=== PATIENT | female | born 1960 | race Caucasian/White ===

== ENCOUNTER 2022-03-03 11:38 | Outpatient (REF) | payer OTHER, SELFPAY ==
--- NOTE | ~2022-03-03 | XR_ITS ---
EXAMINATION: XR HAND, LEFT CLINICAL INFORMATION: Primary osteoarthritis. COMPARISON: None TECHNIQUE: PA, lateral, and oblique views of the left hand. FINDINGS: Bony alignment and mineralization are normal. There is a neutral ulnar variance. The proximal and distal carpal rows are intact. There is mild osteoarthritic change of the first carpometacarpal joint. There is a small well-corticated, ovoid probable loose body related to the first carpometacarpal joint. There is mild osteoarthritic change of the third distal interphalangeal joint. No focal bone erosion is seen. No focal soft tissue swelling, gas or foreign body is seen. XR/XR hand LT min 3V IMPRESSION: 1. There is mild osteoarthritic change of the left first carpometacarpal joint, and a small adjacent loose body is seen. 2. There is mild osteoarthritic change of the third distal interphalangeal joint. 3. No fracture or dislocation is seen. 4. There is no abnormal bone erosion.
== END 2022-03-03 11:39 | disposition home or self-care (01) ==
LOC: HO.XRAY 11:38
PROVIDERS: PCP Internal Medicine; Visit Provider Internal Medicine Rheumatology
DX: M19.042 Primary osteoarthritis, left hand (principal)
CPT/HCPCS: 73130

== ENCOUNTER 2022-11-06 07:19 | Outpatient (REF) | payer OTHER, SELFPAY ==
--- NOTE | ~2022-11-06 | XR_ITS ---
EXAMINATION: XR HIP, LEFT CLINICAL INFORMATION: Left hip pain. COMPARISON: None available. TECHNIQUE: Single view pelvis and 2 views of the left hip. FINDINGS: Marked degenerative changes are present in the left hip with circumferential joint space narrowing, sclerosis and osteophytes. No significant changes are seen in the right hip joint. The visualized pelvis is unremarkable. No fractures or bony destructive lesions. XR/XR hip LT w PEL1V IMPRESSION: Marked degenerative changes in the left hip.
== END 2022-11-06 07:20 | disposition home or self-care (01) ==
LOC: HO.HOSX 07:19
PROVIDERS: Visit Provider Orthopaedic Surgery
DX: M16.12 Unilateral primary osteoarthritis, left hip (principal)
CPT/HCPCS: 73502

== ENCOUNTER 2022-11-06 10:46 | Outpatient (AMB) | payer OTHER, SELFPAY ==
[2022-11-06 11:02] VITALS: BMI 23.8
--- NOTE | 2022-11-06 11:02 | A.OFFVIS_ITS ---
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 Parks. The patient presents with complaints of progressively worsening left hip pain. She describes her pain as sharp and severe in nature, 10/10. Her pain has gotten worse over the last few years in spite of continued non operative treatments. Most of her pain is located within her left groin. She has done physical therapy for 12 weeks over the last 6 months which aggravated her pain. She has also tried Tylenol and anti-inflammatory medicines which gave her minimal relief. The patient has difficulty walking even short distances because of her pain. At this point her left hip pain is interfering with her activities of daily living and ability to sleep well through the night. Allergies No Known Allergies Allergy (Verified 11/06/22 11:15) Medication List - Last Reconciled 11/06/22 by Tramaine Parks MD aspirin (Adult Low Dose Aspirin) 81 mg PO DAILY atorvastatin 10 mg PO DAILY diltiazem HCl (Cardizem CD) 180 mg PO DAILY empagliflozin (Jardiance) 25 mg PO DAILY lisinopril-hydrochlorothiazide 20-12.5 mg 1 tab PO DAILY meloxicam 7.5 mg PO DAILY metformin 500 mg PO .in pm and 2 in am metoprolol succinate ER 50 mg PO DAILY plecanatide (Trulance) 3 mg PO DAILY potassium chloride ER 10 mEq PO DAILY trazodone 50 mg PO BEDTIME venlafaxine 37.5 mg PO DAILY [facility] Medical History (Updated 11/06/22 @ 07:20 by Tramaine Parks MD) Allergic rhinitis Biliary dyskinesia Cataracts, bilateral Depression Diabetes Diverticulitis Dyslipidemia Hypertension Hypokalemia Insomnia Internal hemorrhoids Lipoma of colon Migraines Ocular hypertension Rosacea Surgical History (Updated 02/26/22 @ 09:18 by Etienne Schrader LPN) H/O foot surgery Hx laparoscopic cholecystectomy Family History (Updated 02/26/22 @ 09:21 by Etienne Schrader LPN) Mother COPD (chronic obstructive pulmonary disease) Diabetes Father CAD (coronary artery disease) Paternal Grandmother CAD (coronary artery disease) Social History (Updated 03/03/22 @ 10:38 by Etienne Schrader LPN) Household Members Other:: lives alone Housing: Condominium Alcohol intake: current Alcohol intake frequency: a few times a week Alcohol type: wine Patient Tobacco Use Status: Former Tobacco user Years Smoked: Quit 21 years ago e-Cigarette/Vaping Use: Never Used service: No Current occupational status: retired 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 [employer] Physical Exam Vital Signs: BMI result Body Mass Index 23.8 Const Other: Well-nourished well-developed very friendly female awake alert and oriented x3 in no acute distress Extrem Other: Bilateral lower extremity examination shows good capillary refill, no skin lesions noted, normal sensation light touch Left hip examination shows decreased range of motion when compared to her right hip, pain with range of motion, no tenderness over her bursa Results Reviewed Results Reviewed: X-rays of the patient's left hip taken today show severe joint space narrowing with grade 4 [id number] arthritis, subchondral sclerosis, osteophyte formation, no acute bony abnormalities Assessment & Plan Assessment & Plan (1) Osteoarthritis of left hip: Code(s): M16.12 - Unilateral primary osteoarthritis, left hip Plan: Ms. Yin presents with progressively worsening left hip pain due to end- stage degenerative joint disease. I had a lengthy discussion with the patient regarding the treatment options. At this point she has failed continued non operative treatments. The risks and benefits of left total hip replacement were discussed at length with the patient. We had a discussion regarding implant in bearing options. We had a detailed discussion of the advantages and limitations of the specific implant designs, materials and bearing surfaces. All questions were answered to the patient's satisfaction. The patient wishes to proceed with surgery. Because the patient's symptoms are severe and intractable we will schedule surgery for as soon as possible. Coronavirus precautions will be taken. The patient will contact my office to pick a surgery date. I will see her back 1 week prior to her surgery to answer any final questions that she might have. She will contact me prior to that time should any questions or concerns arise. Feel free to call me at any time should questions regarding her orthopedic management arise. Thank you very much for asking me to see this very friendly patient. I spent 22 minutes in reviewing the patient's records and imaging studies, seeing the patient and documenting in the medical record. Orders: Orders XR hip LT w PEL1V Today M25.552 - Pain in left hip Coding Level of Care Code Est Pt Level 2 (01639) Diagnoses Osteoarthritis of left hip M16.12
== END 2022-11-06 12:14 | disposition home or self-care (01) ==
PROVIDERS: PCP Internal Medicine; Visit Provider Orthopaedic Surgery
DX: M16.12 Unilateral primary osteoarthritis, left hip (principal)
CPT/HCPCS: 99212

== ENCOUNTER → 2023-04-07 09:14 | Outpatient (BNVA) | payer OTHER, SELFPAY | PROVIDERS: PCP Internal Medicine; Visit Provider Orthopaedic Surgery ==

== ENCOUNTER 2023-05-07 09:26 | Outpatient (AMB) | payer OTHER, SELFPAY ==
[2023-05-07 09:27] VITALS: BMI 23.8
--- NOTE | 2023-05-07 09:27 | A.OFFVIS_ITS ---
Intake Vital Signs 05/07/23 09:27 Height 5 ft Weight 122 lb BMI 23.8 Intake Visit Reasons: Preop LT AGUSTÍN 05/11/23 Intake Note: Belkis is a 63 year old female who presents for a pre op appointment for left total hip replacement surgery. The patient's left hip pain has been getting progressively worse in spite of continued non operative treatments. The patient's left hip pain is now interfering with her ability to walk long distances and perform her activities of daily living. Allergies No Known Allergies Allergy (Verified 05/07/23 09:31) Medication List - Last Reconciled 05/07/23 by Tramaine Parks MD atorvastatin 10 mg PO DAILY diltiazem HCl (Cardizem CD) 180 mg PO DAILY lisinopril-hydrochlorothiazide 20-12.5 mg 1 tab PO DAILY metformin 1,000 mg PO BID metoprolol succinate ER 50 mg PO DAILY potassium chloride ER 10 mEq PO DAILY trazodone 100 mg PO BEDTIME venlafaxine 37.5 mg PO DAILY walker Folding front wheeled walker [facility] Medical History Back pain Arthritis Aortic stenosis Murmur IBS (irritable bowel syndrome) Rosacea Internal hemorrhoids Migraines Allergic rhinitis Insomnia Lipoma of colon Hypertension Diabetes Depression Biliary dyskinesia Diverticulitis Cataracts, bilateral Ocular hypertension Hypokalemia Dyslipidemia Surgical History History of bunionectomy H/O colonoscopy Hx of tonsillectomy H/O foot surgery Hx laparoscopic cholecystectomy Family History Mother COPD (chronic obstructive pulmonary disease) Diabetes Father CAD (coronary artery disease) Paternal Grandmother CAD (coronary artery disease) Social History Household Members Other:: lives alone Housing: Condominium Are you a primary manager progressive care to a significant other at home: No Do you presently have visiting nurse or other home services: Yes (nursing) Alcohol intake: current Alcohol intake frequency: 0-2 drinks per day Alcohol type: wine Patient Tobacco Use Status: Former Tobacco user Years Smoked: Quit 21 years ago e-Cigarette/Vaping Use: Never Used service: No Current occupational status: retired 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 Yin presents with progressively worsening left hip pain due to end- stage degenerative joint disease. I had a lengthy discussion with the patient regarding the treatment options. At this point she has failed continued non operative treatments. The risks and benefits of left total hip replacement surgery were discussed at length with the patient. The patient wishes to proceed with surgery. policy services representative will be consulted following her surgery for home physical therapy and nursing. Patient will follow-up as a. Feel free to call me at any time should questions regarding her orthopedic arise. I spent 20 minutes in reviewing the patient's records and imaging studies, seeing the patient and documenting in the medical record. Coding Level of Care Code Est Pt Level 2 (89052) Diagnoses Osteoarthritis of left hip M16.12
== END 2023-05-07 09:54 | disposition home or self-care (01) ==
PROVIDERS: PCP Internal Medicine; Visit Provider Orthopaedic Surgery
DX: M16.12 Unilateral primary osteoarthritis, left hip (principal)
CPT/HCPCS: 99024

== ENCOUNTER → 2023-05-07 09:26 | Outpatient (BNVA) | payer OTHER, SELFPAY | PROVIDERS: PCP Internal Medicine; Visit Provider Orthopaedic Surgery ==

== ENCOUNTER 2023-05-11 06:06 | Inpatient (IN) | payer OTHER, SELFPAY ==
[2023-04-29 12:18] VITALS: BP 104/61; PULSE 65; RESP 16; O2SAT 98; BMI 25.8
--- NOTE | 2023-04-29 12:41 | P.CONAN_ITS ---
Documented by User: Myrna Pritchard NP 05/07/23 15:14 HPI - Anesthesia Eval Consult details Narrative: 63yo F for Left Hip Total Replacement, 05/11/23 PCP cleared Cardiac cleared No recent illness No CP/SOB with minimal activity. Only limited to hip pain DM. FBS ~ 115. Sensor in situ Aortic stenosis. Asymptomatic. No valve abnormality on last echo. Survellience only per cardiology 1 small glass wine daily PMFSH Active Problems Active Problems: All Active Problems (Updated 04/29/23 @ 12:07 by Lavern Torres RN) Left hip pain (Acute) Osteoarthritis of left hip (Acute) Hand pain, left (Acute) Pain of multiple sites (Acute) Osteoarthritis, hand (Acute) Depression (Acute) Diabetes (Acute) Hypertension (Acute) Past Medical History Medical History Back pain Arthritis Aortic stenosis Murmur IBS (irritable bowel syndrome) Rosacea Internal hemorrhoids Migraines Allergic rhinitis Insomnia Lipoma of colon Hypertension Diabetes Depression Biliary dyskinesia Diverticulitis Cataracts, bilateral Ocular hypertension Hypokalemia Dyslipidemia Family History Family History Mother COPD (chronic obstructive pulmonary disease) Diabetes Father CAD (coronary artery disease) Paternal Grandmother CAD (coronary artery disease) Family history of problems with anesthesia: No Surgical History Surgical History History of bunionectomy H/O colonoscopy Hx of tonsillectomy H/O foot surgery Hx laparoscopic cholecystectomy History of Problems with Anesthesia: Yes (PONV) Social History Social History Household Members Other:: lives alone Housing: Condominium Are you a primary reservoir caretaker to a significant other at home: No Do you presently have visiting nurse or other home services: Yes (nursing) Alcohol intake: current Alcohol intake frequency: 0-2 drinks per day Alcohol type: wine Patient Tobacco Use Status: Former Tobacco user Years Smoked: Quit 21 years ago e-Cigarette/Vaping Use: Never Used Use of substances other than those prescribed or required for medical reasons: No Have you been hit, kicked, punched, or otherwise hurt by someone within the past year? 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 [employer] Allergies Allergy/AdvReac Type Severity Reaction Status Date / Time No Known Allergies Allergy Verified 05/11/23 06:21 Home Medications Medication Instructions Recorded Confirmed Last Taken Type atorvastatin 10 mg tablet 10 mg PO DAILY 03/03/22 05/07/23 05/11/23 History diltiazem HCl 180 mg 180 mg PO DAILY 03/03/22 05/07/23 05/11/23 History capsule,extended release 24 hr (Cardizem CD) lisinopril 20 1 tab PO DAILY 03/03/22 05/07/23 Unknown History mg-hydrochlorothiazide 12.5 mg tablet metformin 500 mg tablet 1,000 mg PO BID 03/03/22 05/07/23 Unknown History metoprolol succinate 50 mg 50 mg PO DAILY 03/03/22 05/07/23 05/11/23 History tablet,extended release 24 hr potassium chloride 10 mEq 10 meq PO DAILY 03/03/22 05/07/23 Unknown History capsule,extended release trazodone 50 mg tablet 100 mg PO BEDTIME 03/03/22 05/07/23 Unknown History venlafaxine 37.5 mg tablet 37.5 mg PO DAILY 03/03/22 05/07/23 05/11/23 History Exam Height,Weight and Vital Signs: Height 5 ft Weight 59.874 kg Last Vital Signs Pulse 65 04/29/23 12:18 Resp 16 04/29/23 12:18 BP 104/61 04/29/23 12:18 Pulse Ox 98 04/29/23 12:18 O2 Del Method Room Air 04/29/23 12:18 Pertinent Lab Results Pertinent Lab Results: CBC and BMP from outside facility 02/2023 WNL Narrative Narrative: Per 03/2023 cardiac note: 11/2022 stress test d/t chest pain with Nuc imaging did not reveal any evidence of ischemia or infarct 05/2022 echo revealed mildly dilated LA, nml LV chamber size. No RWMA. LVEF 60%. Mild DD. Mild to moderate mitral insufficiency. EKG 03/2023 SR @ 57 Short DC interval Borderline T abnormalities, anterior leads Unchanged from 2021 Airway Mallampati Class: II TM Dist: >3cm Neck ROM: Full Loose/Missing/Broken Teeth: No (crowned molars stable) Heart: RRR Lungs: CTAB Assessment and Plan Assessment Anesthesia Assessment: Anesthesia Plan Discussed and PAT Visit Final Anesthetic Review Family History of Problems with Anesthesia: No History of Problems with Anesthesia: Yes (PONV) Documented by User: Kathleen Sanchez MD 05/11/23 08:36 PMFSH Active Problems Active Problems: All Active Problems (Updated 05/11/23 @ 07:18 by Kathleen Sanchez MD) Left hip pain (Acute) Osteoarthritis of left hip (Acute) Hand pain, left (Acute) Pain of multiple sites (Acute) Osteoarthritis, hand (Acute) Depression (Acute) Diabetes (Acute) Hypertension (Acute) Mild Aortic stenosis Denies [facility]RI[facility]EL Past Medical History Medical History Back pain Arthritis Aortic stenosis Murmur IBS (irritable bowel syndrome) Rosacea Internal hemorrhoids Migraines Allergic rhinitis Insomnia Lipoma of colon Hypertension Diabetes Depression Biliary dyskinesia Diverticulitis Cataracts, bilateral Ocular hypertension Hypokalemia Dyslipidemia Family History Family History Mother COPD (chronic obstructive pulmonary disease) Diabetes Father CAD (coronary artery disease) Paternal Grandmother CAD (coronary artery disease) Surgical History Surgical History History of bunionectomy H/O colonoscopy Hx of tonsillectomy H/O foot surgery Hx laparoscopic cholecystectomy Social History Social History Household Members Other:: lives alone Housing: Condominium Are you a primary reservoir caretaker to a significant other at home: No Do you presently have visiting nurse or other home services: Yes (nursing) Alcohol intake: current Alcohol intake frequency: 0-2 drinks per day Alcohol type: wine Patient Tobacco Use Status: Former Tobacco user Years Smoked: Quit 21 years ago e-Cigarette/Vaping Use: Never Used Use of substances other than those prescribed or required for medical reasons: No Have you been hit, kicked, punched, or otherwise hurt by someone within the past year? If so, by whom?: No Are you DNR?: Yes Advance Directives: No Advance Directives Information Provided: No Advance Directives on File: No Recently lost weight without trying: No Eating poorly because of decreased appetite: No Nutrition Risks: No Nutritional Risk Patient : No : No Poor oral hygiene: No service: No Current occupational status: retired Current occupation: Former worker in [employer] in [employer] Allergies Allergy/AdvReac Type Severity Reaction Status Date / Time No Known Allergies Allergy Verified 05/11/23 06:21 Home Medications Medication Instructions Recorded Confirmed Last Taken Type atorvastatin 10 mg tablet 10 mg PO DAILY 03/03/22 05/07/23 05/11/23 History diltiazem HCl 180 mg 180 mg PO DAILY 03/03/22 05/07/23 05/11/23 History capsule,extended release 24 hr (Cardizem CD) lisinopril 20 1 tab PO DAILY 03/03/22 05/07/23 Unknown History mg-hydrochlorothiazide 12.5 mg tablet metformin 500 mg tablet 1,000 mg PO BID 03/03/22 05/07/23 Unknown History metoprolol succinate 50 mg 50 mg PO DAILY 03/03/22 05/07/23 05/11/23 History tablet,extended release 24 hr potassium chloride 10 mEq 10 meq PO DAILY 03/03/22 05/07/23 Unknown History capsule,extended release trazodone 50 mg tablet 100 mg PO BEDTIME 03/03/22 05/07/23 Unknown History venlafaxine 37.5 mg tablet 37.5 mg PO DAILY 03/03/22 05/07/23 05/11/23 History Exam Height,Weight and Vital Signs: Height 5 ft Weight 59.874 kg Last Vital Signs Pulse 65 04/29/23 12:18 Resp 16 04/29/23 12:18 BP 104/61 04/29/23 12:18 Pulse Ox 98 04/29/23 12:18 O2 Del Method Room Air 04/29/23 12:18 Vital Signs Temp Pulse Resp BP Pulse Ox O2 Del Method 05/11/23 06:28 98.9 F 65 18 136/66 98 Room Air Pertinent Lab Results Pertinent Lab Results: CBC and BMP from outside facility 02/2023 WNL Lab Results 04/29/23 04/29/23 05/11/23 Range/Units 12:50 13:22 06:38 POC Glucose 125 H (60-115) mg/dL Nasal Screen MRSA (PCR) NEGATIVE (Negative) Nasal S. aureus Screen NEGATIVE (Negative) Nasal MRSA/S.aureus Interp SEE NOTE Blood Type B Negative Antibody Screen NEGATIVE Airway Loose/Missing/Broken Teeth: Yes (Crowned molars. Missing tooth bottom left back. Denies broken or loose teeth) Assessment and Plan Assessment Anesthesia Assessment: Chart Reviewed Final Anesthetic Review NPO: Yes ASA Class: II Final Preanesthetic Review: No Changes in Pt Med Stat, Meds/Allgs Chart Reviewed, Consent Obtained/Reviewed and Anes Risks/Benef Reviewed Patient Risk: Intermediate Procedure Risk: Intermediate Assessment/Block/Sedation in SS: Assess/Block/Sedation-SS Anesthetic Plan Anesthetic Plan: GA Disposition: Standard PACU and Inp. Admit - Standard Bed
[2023-05-11] VITALS (18 sets, daily range): BP systolic 86–151; BP diastolic 48–72; PULSE 56–65; RESP 12–20; TEMP 36.2–37.3; O2SAT 96–99; BMI 24.9
--- NOTE | ~2023-05-11 | XR_ITS ---
EXAMINATION: XR PELVIS CLINICAL INFORMATION: Status post left total hip arthroplasty. COMPARISON: Radiograph pelvis and left hip 11/06/2022. TECHNIQUE: AP view of the pelvis. FINDINGS: Prosthetic components of the left total hip arthroplasty are appropriately aligned. No periprosthetic fracture. Gas from recent surgery is present in the surrounding soft tissues. XR/XR pelvis 1-2V IMPRESSION: Status post left total hip arthroplasty. No periprosthetic fracture.
[2023-05-11] MEDS: Lactated Ringers 1,000 ML 100 ML IVCONT ×3 (06:36→23:48)
[2023-05-11 06:54] LABS: Glucose, Whole Blood 125 mg/dL (60-115)
[2023-05-11] MEDS: vancomycin HCL 1,000 MG in 0.9 % Sodium Chloride 250 ML 270 MG IV ×2 (06:56→18:29)
[2023-05-11] MEDS: oxyCODONE HCl ER 10 MG TAB.ER.12H PO ×2 (06:59→20:33)
--- NOTE | 2023-05-11 10:26 | PM.OP ---
Brief Operative Note Date of Service: 05/11/23 Pre-op diagnosis: Left hip degenerative joint disease Post-op diagnosis: same Procedure: Left total hip arthroplasty Implants: Fraser press-fit total hip arthroplasty with an Accolade II femoral stem size 2 with a 127 degree neck-shaft angle, a Trident II Tritanium acetabular component with cluster hole size 44, polyethylene liner size 32B with a 0 degree lip, a Biolox ceramic femoral head size 32 with a-4 mm neck, 1 [email or web address] cable, 2 cancellous bone screws measuring 25 mm in length and 20 mm in length Surgeon: Tramaine Parks MD Anesthesia: GETA Was an Head Girls Golf [employer] used for this Procedure?: No Estimated blood loss (mL): 200 Pathology: other (Left femoral head) Condition: stable Disposition: PACU
--- NOTE | 2023-05-11 10:28 | P.OP_ITS ---
Operative Note Operative Note Date of Service: 05/11/23 Narrative: After the patient was identified as Belkis Yin and his left hip was initialed by myself the patient was brought to the operating room where general anesthesia via endotracheal tube was induced by the anesthesiologist in routine fashion. Because of the patient's diabetes she was given both IV Ancef and IV vancomycin preoperatively for infection prophylaxis. The patient was then gently rolled into the lateral position. An axillary roll was put into place. All bony prominences were well padded. The patient's pelvis was held securely with hip bolsters. The patient's left hip region and lower extremity were pr epped and draped in sterile fashion. A #10 scalpel blade was then used to make a curvilinear incision centered over the greater trochanter. The subcutaneous tissues were dissected using electrocautery down to the fascia eugenie. The fascia eugenie was then split in line with the skin incision using electrocautery. The split in the fascia eugenie was curved posteriorly along its cephalad aspect to help prevent injury to the innervation of the tensor fascia eugenie muscle. The patient's leg was gently externally rotated. A lateral Harrell approach was then taken down to the anterior joint capsule. The anterior half of the vastus lateralis was split 1 cm from its insertion and tagged with #2 Ethibond suture. The anterior 1/3 of the gluteus medius incision was then split using electrocautery and tagged with #2 Ethibond suture. An anterior capsulectomy was then performed using electrocautery. The patient's femoral head was then dislocated anteriorly using a hook and gentle traction. Soft tissues were retracted around the femoral neck. The femoral neck cut was then made using a sagittal saw 1 cm proximal to the lesser trochanter. Our attention was then directed to the acetabulum. The labrum was removed using electrocautery. Soft tissue within the cotyloid notch was removed using electrocautery and a rongeur. The femoral head measured to be a size 40 mm. Thus, reaming was begun with a 40 mm reamer. Reaming was performed at 45 degrees of abduction and 20 degrees of anteversion. Reaming was increased incrementally up to a size 44 reamer. At this point we had reached the medial wall of the acetabulum. The acetabulum was irrigated with copious amounts of normal saline solution via pulse lavage. The final size 44 acetabular component was then impacted into place with 45 degrees of abduction and 20 degrees of anteversion. Two cancellous screws were then placed into the superior position. The anterior screw measured 25 mm in length and the posterior screw measured 20 mm in length. The acetabular component was irrigated with copious amounts of normal saline solution via pulse lavage. The polyethylene liner was then impacted into place with the lip in the posterior- superior position. A small sponge was placed into the acetabular component to protect it during preparation of the proximal femur. Our attention was then directed to the proximal femur. A Dall-Miles cable was placed just distal to the lesser trochanter to help prevent periprosthetic fracture. The patient's leg was then placed into a sterile pouch along the anterior aspect of the surgical suite table. Soft tissues were retracted around the proximal femur. A box cutting osteotome was used to make a groove in the medial aspect of the greater trochanter. Broaching was begun with a size 1 broach. Broaching was increased up to a size 2 broach. The size 2 broach fit well. There was both linear and rotational stability. The broach was removed. The intramedullary canal was irrigated with copious amounts of normal saline solution via pulse lavage. The final implant was impacted into place. There was both rotational and linear stability. The Dall-Miles cable was tightened and cut in routine fashion. A trial size 36 head with a -4 mm neck was put into place. The hip was reduced. Leg lengths were clinically equal. The hip was taken through a full range of motion. There was no instability. The hip was once again dislocated and the patient's leg was placed into the sterile pouch. The trial head was removed. The wound was irrigated with copious amounts of normal saline solution via pulse lavage. The final head was impacted in the place. Leg lengths were clinically equal. Hip was taken through a full range of motion. There was no instability. The patient's leg was then placed onto a well-padded [place]me[place] stand. The wound was once again irrigated. The vastus lateralis and tensor fascia eugenie tendons were repaired with #2 Ethibond [id number] interrupted suture. The wound was once again irrigated. The fascia eugenie was closed with #2 Ethibond [id number] interrupted suture as well as #1 Vicryl [id number] interrupted suture. The wound was once again irrigated. The subcutaneous tissues were closed with 0 Vicryl and 2-0 Vicryl interrupted suture. The skin was closed with skin raven. Dry sterile dressing was placed over the incision. The patient was gently rolled into the supine position. The patient was awoken and extubated in the operating room. The patient was transferred to the recovery room in stable condition.
[2023-05-11] MEDS: fentaNYL citrate/PF 100 MCG/2 ML VIAL 25 MCG IVPUSH ×4 (10:43→11:13)
--- NOTE | 2023-05-11 11:02 | PHA.MEDREC ---
Pharmacy Consult ? Medication Reconciliation Pharmacy has completed the medication reconciliation. reviewed med rec done by nursing.
[2023-05-11] MEDS: Aspirin 325 MG TABLET PO ×2 (12:34→23:47)
[2023-05-11] MEDS: oxyCODONE HCl Immed Release 5 MG TABLET 10 MG PO ×2 (12:45→18:39)
--- NOTE | 2023-05-11 13:04 | HO.PM.IMCN ---
History of Present Illness Data of Consult Service Date: 05/11/23 Requesting physician: Angie Knutson Primary Care Provider: Kee Barker III, MD HPI Reason for consult: medical management 63 year old female with history of non insulin dependent type 2 diabetes, htn, aortic stenosis, mood disorder admitted to orthopedic surgery with consult placed to hospitalist service for medical management. She is currently reporting pain in the left hip, otherwise has no complaints. VSS, though remains on 1 L supplemental O2. No history chronic lung disease. Occ etoh use, cigarette smoking, or illicit drug use. Review of Systems Review of Systems: General: No fevers, malaise, unintentional weight loss HEENT: No blurred vision, diplopia. No sore throat, nasal congestion, rhinorrhea, sinus pain, ear pain Cardiovascular: No chest pain, palpitations, or leg edema Respiratory: No shortness of breath, wheezing, cough GI: No abdominal pain, nausea, vomiting, diarrhea, constipation, melena, hematochezia : No dysuria, hematuria, increased urinary frequency, decreased urinary output MSK: No myalgia, back pain. +L hip pain Neuro: No headaches, weakness, paresthesias Skin: No rashes or lesions PMFSH Medical History Back pain Arthritis Aortic stenosis Murmur IBS (irritable bowel syndrome) Rosacea Internal hemorrhoids Migraines Allergic rhinitis Insomnia Lipoma of colon Hypertension Diabetes Depression Biliary dyskinesia Diverticulitis Cataracts, bilateral Ocular hypertension Hypokalemia Dyslipidemia Family History Mother COPD (chronic obstructive pulmonary disease) Diabetes Father CAD (coronary artery disease) Paternal Grandmother CAD (coronary artery disease) Surgical History History of bunionectomy H/O colonoscopy Hx of tonsillectomy H/O foot surgery Hx laparoscopic cholecystectomy Social History Household Members: None Household Members Other:: lives alone Housing: Condominium Are you a primary health care social worker to a significant other at home: No Do you presently have visiting nurse or other home services: No Alcohol intake: current Alcohol intake frequency: 0-2 drinks per day Alcohol type: wine Patient Tobacco Use Status: Former Tobacco user Tobacco use type: Cigarette Years Smoked: Quit 21 years ago e-Cigarette/Vaping Use: Former Use Second Hand Smoke Exposure: No Substance Use Type: Painkillers service: No Current occupational status: retired 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 Allergies Allergy/AdvReac Type Severity Reaction Status Date / Time No Known Allergies Allergy Verified 05/11/23 06:21 Active Medications: Current Medications Acetaminophen (Acetaminophen 325 Mg Tablet) 650 mg PO Q6H PRN PRN Reason: Pain, Mild (Pain Scale 1-3) Aspirin (Aspirin 325 Mg Tablet) 325 mg PO Q12H [facility] Last Admin: 05/11/23 12:34 Dose: 325 mg Atorvastatin Calcium (Atorvastatin Calcium 10 Mg Tablet) 10 mg PO DAILY [facility] Celecoxib (Celecoxib 200 Mg Capsule) 200 mg PO BID [facility] Diltiazem HCl (Diltiazem Hcl Cd 180 Mg Cap.Er.24h) 180 mg PO DAILY [facility]; Protocol Docusate Sodium (Docusate Sodium 100 Mg Capsule) 100 mg PO BID [facility] Gabapentin (Gabapentin 100 Mg Capsule) 100 mg PO BEDTIME [facility] Hydrochlorothiazide (Hydrochlorothiazide 12.5 Mg Tablet) 12.5 mg PO DAILY [facility]; Protocol Hydromorphone HCl (Hydromorphone Hcl 0.5 Mg/0.5 Ml Syringe) 0.25 mg IVPUSH Q4H PRN; Protocol PRN Reason: Pain, Severe (Pain Scale 7-10) Hydromorphone HCl (Hydromorphone Hcl 0.5 Mg/0.5 Ml Syringe) 0.5 mg IVPUSH Q4H PRN; Protocol PRN Reason: Pain, Severe (Pain Scale 7-10) Lactated Ringer's (Lr) 1,000 mls @ 100 mls/hr IVCONT .Q10H [facility] Last Admin: 05/11/23 12:48 Dose: 100 mls/hr Vancomycin HCl 1,000 mg/ (Sodium Chloride) 270 mls @ 270 mls/hr IV POSTOP ONE Stop: 05/11/23 19:59 Cefazolin Sodium/Dextrose (Ancef) 2 gm in 50 mls @ 100 mls/hr IV Q8H [facility] Stop: 05/12/23 13:59 Lisinopril (Lisinopril 20 Mg Tablet) 20 mg PO DAILY [facility]; Protocol Metformin HCl (Metformin Hcl 1,000 Mg Tablet) 1,000 mg PO BID [facility] Methocarbamol (Methocarbamol 500 Mg Tablet) 500 mg PO TID [facility] Metoprolol Succinate (Metoprolol Succinate Er 50 Mg Tab.Er.24h) 50 mg PO DAILY [facility]; Protocol Ondansetron HCl (Ondansetron Hcl 4 Mg/2 Ml Vial) 4 mg IVPUSH Q8H PRN PRN Reason: Nausea and Vomiting Oxycodone HCl (Oxycodone Hcl Immed Release 5 Mg Tablet) 5 mg PO Q4H PRN PRN Reason: Pain, Moderate(Pain Scale 4-6) Oxycodone HCl (Oxycodone Hcl Er 10 Mg Tab.Er.12h) 10 mg PO BID [facility] Oxycodone HCl (Oxycodone Hcl Immed Release 5 Mg Tablet) 10 mg PO Q4H PRN PRN Reason: Pain, Moderate(Pain Scale 4-6) Last Admin: 05/11/23 12:45 Dose: 10 mg Pharmacy Consult (Consult Rx Vancomycin Dosing) 1 each MISCELLANE DAILY PRN PRN Reason: Consult order Potassium Chloride (Potassium Chloride Er 10 Meq Tablet.Er) 10 meq PO DAILY [facility] Sodium Chloride (0.9 % Sodium Chloride Flush 3 Ml Syringe) 3 ml IVFLUSH QSHIFT [facility] Trazodone HCl (Trazodone Hcl 100 Mg Tablet) 100 mg PO BEDTIME [facility] Venlafaxine HCl (Venlafaxine Hcl 25 Mg Tablet) 37.5 mg PO DAILY [facility] Home Medications Medication Instructions Recorded Confirmed Last Taken Type atorvastatin 10 mg tablet 10 mg PO DAILY 03/03/22 05/07/23 05/11/23 History diltiazem HCl 180 mg 180 mg PO DAILY 03/03/22 05/07/23 05/11/23 History capsule,extended release 24 hr (Cardizem CD) lisinopril 20 1 tab PO DAILY 03/03/22 05/07/23 Unknown History mg-hydrochlorothiazide 12.5 mg tablet metformin 500 mg tablet 1,000 mg PO BID 03/03/22 05/07/23 Unknown History metoprolol succinate 50 mg 50 mg PO DAILY 03/03/22 05/07/23 05/11/23 History tablet,extended release 24 hr potassium chloride 10 mEq 10 meq PO DAILY 03/03/22 05/07/23 Unknown History capsule,extended release trazodone 50 mg tablet 100 mg PO BEDTIME 03/03/22 05/07/23 Unknown History venlafaxine 37.5 mg tablet 37.5 mg PO DAILY 03/03/22 05/07/23 05/11/23 History Physical Exam Vital Signs and Narrative: Vital Signs: Last Vital Signs Temp 97.9 F 05/11/23 11:36 Pulse 59 05/11/23 11:36 Resp 13 05/11/23 11:36 BP 123/60 05/11/23 11:36 Pulse Ox 99 05/11/23 11:36 O2 Del Method Nasal Cannula 05/11/23 11:36 O2 Flow Rate 1 05/11/23 11:36 BMI result Body Mass Index 24.9 Constitutional - Awake and Alert, No apparent distress Eyes - PERRLA, EOMI Cardiovascular - S1S2, RRR, No edema Respiratory - Normal lung expansion, Normal respiratory effort, No respiratory distress, CTA bilaterally Gastrointestinal - NT / ND; +BS; No rebound or guarding - No CVA tenderness Extremities - no calf tenderness bilaterally, no swelling Musculoskeletal - Normal inspection, normal ROM Skin - Warm/Dry Neurological - Alert & oriented x3, CN II-XII in tact, 5/5 strength BUE and BLE Psychological - Appropriate affect Results Labs Labs: Laboratory Results - last 24 hr 05/11/23 06:38 POC Glucose 125 H Assessment and Plan (1) Osteoarthritis of left hip: Status: Acute Plan 63 year old female with history of non insulin dependent type 2 diabetes, htn, mood disorder admitted to orthopedic surgery with consult placed to hospitalist service for medical management. #OA left hip s/o AGUSTÍN POD 0 -plan per ortho surgery #Non-insulin dependent type 2 diabetes -POC glucose, diabetic diet -humalog on sliding scale -resume metformin on discharge #HTN -bp reasonlably controlled -resume antihypertensives am #Mood disorder -continue home meds Thank you for this consult. Will continue following. Please do not hesitate to reach out for any acute medical issues.
[2023-05-11] MEDS: methocarbamoL 500 MG TABLET PO ×2 (14:00→20:33)
[2023-05-11] MEDS: ceFAZolin Sodium/Dextrose,Iso 2 GM/50 ML PIGGYBACK IV ×2 (14:00→21:49)
--- NOTE | 2023-05-11 14:01 | MHC.CLN ---
NUTRITION DIET CHANGED TO DIABETIC 1800 KCALS DUE TO DX DM.
--- NOTE | 2023-05-11 16:41 | PC.NURSE ---
BS 264 ,patient checked BS using her own device,EMILEE Campos notified
[2023-05-11] MEDS: Insulin Lispro 100 UNIT/ML 3 ML VIAL SUBCUT ×2 (17:24→20:29)
--- NOTE | 2023-05-11 20:28 | PC.NURSE ---
BS 220 per patient device
[2023-05-11] MEDS: Docusate Sodium 100 MG CAPSULE PO (20:32)
[2023-05-11] MEDS: Gabapentin 100 MG CAPSULE PO (20:32)
[2023-05-11] MEDS: traZODone HCL 100 MG TABLET PO (20:32)
[2023-05-11] MEDS: Celecoxib 200 MG CAPSULE PO (20:33)
[2023-05-12] VITALS (7 sets, daily range): BP systolic 97–120; BP diastolic 53–82; PULSE 65–73; RESP 18–19; TEMP 36.1–36.8; O2SAT 93–95
[2023-05-12] MEDS: oxyCODONE HCl Immed Release 5 MG TABLET 10 MG PO ×3 (03:34→18:32)
[2023-05-12] MEDS: ceFAZolin Sodium/Dextrose,Iso 2 GM/50 ML PIGGYBACK IV (05:35)
[2023-05-12 05:36] LABS: MANUAL DIFF FLAG NO
[2023-05-12 05:44] LABS: Hematocrit 23.1 % (37.0-47.0); Imm Gran Abs Auto 0.01 X10*3/uL (0.00-0.03); Imm Gran Pct Auto 0.2 % (0.0-0.4); Lymphocytes Absolute Auto 0.7 X10*3/uL (1.2-4.9); Lymphocytes Percent Auto 12.4 % (20-40); Mean Corpuscular HGB Conc 34.6 g/dl (31.0-35.0); Mean Corpuscular Hemoglobin 31.3 pg (27.0-33.0); Mean Corpuscular Volume 90.2 fL (80.0-98.0); Mean Platelet Volume 9.9 fL (9.4-12.3); Monocytes Absolute Auto 0.6 X10*3/uL (0.1-1.2); Monocytes Percent Auto 10.9 % (2-11); Neutrophils Absolute Auto 4.1 x10*3/uL (2.0-8.3); Neutrophils Percent Auto 76.5 % (45-73); Platelet Count 194 X10*3/uL (160-400); Red Blood Count 2.56 X10*6/uL (4.20-5.50); Red Cell Distribution Width 13.1 % (11.0-16.0); White Blood Count 5.3 X10*3/uL (4.8-10.8)
[2023-05-12 05:58] LABS: Anion Gap 11 (12-20); Blood Urea Nitrogen 12 mg/dL (9-16); Calcium 8.2 mg/dL (8.4-10.2); Carbon Dioxide 29 mmol/L (22-29); Chloride 93 mmol/L (96-108); Creatinine Clr Calc Pharmacy 70.6; Estimated Glomerular Filt Rate > 60; Glucose Fasting 152 mg/dL (60-99); Potassium 4.6 mmol/L (3.3-5.1); Sodium 128 mmol/L (135-145)
--- NOTE | 2023-05-12 08:04 | P.PNOP_ITS ---
Subjective Subjective Date of Service: 05/12/23 Principal diagnosis: s/p left total hip arthroplasty Interval history: Ms. Yin is seen resting comfortably in bed this morning with complaints of mild to moderate left hip pain after undergoing left total hip replacement surgery yesterday. She denies any fevers or chills, shortness of breath or chest pain. She is due to get physical therapy later this morning. Physical Exam Vital Signs: Vital Signs: Last Vital Signs Temp 97.6 F 05/12/23 07:25 Pulse 68 05/12/23 07:25 Resp 18 05/12/23 07:25 BP 109/55 L 05/12/23 07:25 Pulse Ox 95 05/12/23 07:25 O2 Del Method Room Air 05/12/23 07:25 O2 Flow Rate 1 05/11/23 11:36 BMI result Body Mass Index 24.9 Extrem: Other: Left lower extremity examination shows that the surgical dressing is clean, dry and intact, EHL/sens nl Procedures Date of Service Date of Service: 05/12/23 Progress Note: A&P Assessment and plan (1) Osteoarthritis of left hip: Status: Acute Plan Ms. Henderson is doing well after undergoing left total hip replacement surgery yesterday. Continue to mobilize as tolerated. Continue aspirin BID for deep vein thrombosis prophylaxis. director of professional services for possible home physical therapy and nursing over the next few days. The patient is stable at present. Quality Stroke Does the patient have a stroke diagnosis?: No VTE Prior VTE?: No VTE Risk Level:: Surgical - low VTE Device Contraindication: Treatment Not Indicated VTE Drug Contraindication: N/A - Med Ordered
[2023-05-12] MEDS: Docusate Sodium 100 MG CAPSULE PO ×2 (08:20→20:28)
[2023-05-12] MEDS: Venlafaxine HCL 25 MG TABLET 37.5 MG PO (08:20)
[2023-05-12] MEDS: Celecoxib 200 MG CAPSULE PO (08:22)
[2023-05-12] MEDS: methocarbamoL 500 MG TABLET PO ×3 (08:22→20:28)
[2023-05-12] MEDS: Potassium Chloride ER 10 MEQ TABLET.ER PO (08:22)
[2023-05-12] MEDS: Metoprolol Succinate ER 50 MG TAB.ER.24H PO (08:22)
[2023-05-12] MEDS: oxyCODONE HCl ER 10 MG TAB.ER.12H PO ×2 (08:23→20:28)
[2023-05-12] MEDS: Atorvastatin Calcium 10 MG TABLET PO (08:23)
--- NOTE | 2023-05-12 10:08 | P.F2F_ITS ---
Service Date Service Date: 05/12/23 Encounter Date of encounter: 05/14/23 Reasons for Services Signs and symptoms assessed: s/p LTHA. Pt. is considered homebound due to recent surgery. Unable to drive, poor balance, poor gait mechanics. Reason for physical therapy: home safety and mobility, therapeutic exercises, restore joint function, gait/transfer training, assess need for DME and ADL training Reason for occupational therapy: home safety and mobility, therapeutic exercises, restore joint function, gait/transfer training, assess need for DME and ADL training Homebound: Leaving the home is medically contraindicated at this time without the asist of a device and/or another person due th the listed conditions above and below. Reason homebound: unsteady gait / fall risk, leg weakness, pain with ambulation, pain with transfers, poor balance / fall risk and unable to drive Certification: Based on the above findings, I certify that this patient is confined to the home and needs intermittent nursing home care, physical therapy and/or speech therapy, or continues to need occupational therapy. The patient is under my care, and I have initiated the establishment of the plan of care. The patient will be followed by a physician who will periodically review the plan of care. Time Spent With Patient Time: Total time managing care of this patient today ____ minutes.
--- NOTE | 2023-05-12 10:08 | PM.DS ---
DS: Providers Provider Date of Service: 05/14/23 Date of admission: 05/11/23 06:06 Primary care physician: Kee Barker III, MD Consults: 05/11/23 11:32 Consult to Hospitalist Routine Comment: Consulting Provider: Hospitalist Reason For Exam: routine medical management - DM, sliding scale DS: Diagnosis Discharge Diagnosis (1) Osteoarthritis of left hip: Status: Acute DS: Summary Hospital Course Hospital Course: The patient underwent a successful left total hip arthroplasty, they were transferred to PACU and then to the floor to recover. During their stay, their vitals were stable, afebrile at 98.2. Labs were unremarkable, H/H 11.1/32.6. POD 1 they were started on Aspirin 325mg po bid for DVT ppx, they also received Physical Therapy services twice a day. Prior to discharge, their dressing was changed and remained clean dry and intact, and the plan was to be discharged home with VNA services. Time Attestation Discharge coordination time: Less than 30 minutes Quality: Safe Use of Opioids Does Pt have an Active Cancer Diagnosis on the Problem List?: No Quality: Stroke Does the patient have a stroke diagnosis?: No Physical Exam Vital Signs: Vital Signs: Last Vital Signs Temp 97.6 F 05/12/23 07:25 Pulse 68 05/12/23 07:25 Resp 18 05/12/23 07:25 BP 109/55 L 05/12/23 07:25 Pulse Ox 95 05/12/23 07:25 O2 Del Method Room Air 05/12/23 07:25 O2 Flow Rate 1 05/11/23 11:36 BMI result Body Mass Index 24.9 Const: General: cooperative, healthy appearing and no acute distress Resp: Effort & Inspection: normal respiratory effort and able to speak in complete sentences Cardio: Rate: regular rate Peripheral pulses: Peripheral pulses 2+ throughout GI: Palpation (GI): Soft to palpation Skin: Lesions: no lesions Rashes: no rashes Extrem: Other: left hip dressing is c/d/i. Able to dorsi/plantar flex. Calf is supple and nontender. Sensation intact. Pedal pulse intact. DS: Data Data Completed and Pending Pending studies at discharge: Pending at discharge 05/11/23 08:43 Surgical [PTH] Routine Labs on day of discharge: Laboratory Results - last 24 hr 05/12/23 04:59 WBC 5.3 RBC 2.56 L Hgb 8.0 L Hct 23.1 L MCV 90.2 MCH 31.3 MCHC 34.6 RDW 13.1 Plt Count 194 MPV 9.9 Immature Gran % (Auto) 0.2 Neut % (Auto) 76.5 H Lymph % (Auto) 12.4 L Desha % (Auto) 10.9 Eos % (Auto) 0.0 Baso % (Auto) 0.0 Lymph # (Auto) 0.7 L Desha # (Auto) 0.6 Eos # (Auto) 0.0 Baso # (Auto) 0.0 Abs Immat Gran (auto) 0.01 Absolute Neuts (auto) 4.1 Absolute Nucleated RBC 0.000 Nucleated RBC % (auto) 0.0 Sodium 128 L Potassium 4.6 Chloride 93 L Carbon Dioxide 29 Anion Gap 11 L BUN 12 Creatinine 0.64 Estim Creat Clear Calc 70.6 Estimated GFR > 60 Fasting Glucose 152 H Calcium 8.2 L Discharge Plan Discharge Anticipated Discharge Date/Time: 05/13/23 13:04 Patient Disposition: Home Health Service Discharge Diagnosis: s/p LT Referrals: Angie Knutson PA-C [Physician Rheumatologist] - 05/28/23 12:30 pm Discharge Medications: New methocarbamol 500 mg Tablet 500 mg PO TID 7 Days Qty: 21 0RF acetaminophen 325 mg Tablet 650 mg PO Q6H PRN (Reason: Pain, Mild (Pain Scale 1-3)) 30 Days Qty: 240 0RF aspirin 325 mg Tablet 325 mg PO Q12H 42 Days Qty: 84 0RF docusate sodium 100 mg Capsule 100 mg PO BID 90 Days Qty: 180 0RF gabapentin 100 mg Capsule 100 mg PO BEDTIME 7 Days Qty: 7 0RF oxycodone 5 mg Tablet 5 mg PO Q4H PRN (Reason: Pain, Moderate(Pain Scale 4-6)) 7 Days Qty: 42 0RF Rx Instructions: Partial Fill upon patient request. Continued (ERIC) imelda Ramosc See Rx Instructions .ROUTE .MEDSUPPLY Qty: 1 0RF Rx Instructions: Folding front wheeled walker atorvastatin 10 mg tablet 10 mg PO DAILY venlafaxine 37.5 mg tablet 37.5 mg PO DAILY trazodone 50 mg tablet 100 mg PO BEDTIME diltiazem HCl [Cardizem CD] 180 mg capsule,extended release 24hr 180 mg PO DAILY potassium chloride 10 mEq capsule, extended release 10 meq PO DAILY metformin 500 mg tablet 1,000 mg PO BID metoprolol succinate 50 mg tablet extended release 24 hr 50 mg PO DAILY Discontinued lisinopril-hydrochlorothiazide 20-12.5 mg tablet 1 tab PO DAILY Discharge Orders: Discharge Order (Routine); Ordered 05/14/23 Ordered By: Angie Knutson Diet: Advance to usual diet Activity on Discharge: Use cane or walker Stand Alone Forms: Patient Portal Discharge page Care Plan Goals: restore fxn to left hip Health Concerns: none Plan of Treatment: Physical Therapy for total hip arthroplasty: no precautions, gait training, ROM, strength Limit stair climbing No showering, no tub bath-keep dressing clean, dry and intact No driving x 6 weeks Continue Aspirin 325mg tabs twice a day x 6 weeks Follow up with [facility] [place] Orthopedics in 2 weeks Assessment: stable for d/c
[2023-05-12 10:48] LABS: Iron 25 mcg/dL (30-160); Percent Iron Saturation 12 % (15-50); Total Iron Binding Capacity 206 mcg/dL (228-428); Unsaturated Iron Binding 181 ug/dL
[2023-05-12 11:08] LABS: Ferritin 146 ng/mL (10-250)
--- NOTE | 2023-05-12 11:18 | HO.PM.IMPN ---
Subjective Subjective Date of Service: 05/12/23 Interval History: Complain of left hip pain with ambulation otherwise good pain control, complain of mild lightheadedness, otherwise denies chest pain, no shortness of breath, no nausea, no vomiting ,tolerating diet, denies prior history of anemia or hyponatremia, no history of melena, or dark stools. Review of Systems All other system reviewed and negative. Physical Exam Vital Signs: Vital Signs: Last Vital Signs Temp 97.6 F 05/12/23 07:25 Pulse 68 05/12/23 10:58 Resp 18 05/12/23 07:25 BP 109/55 L 05/12/23 10:58 Pulse Ox 95 05/12/23 10:58 O2 Del Method Room Air 05/12/23 07:25 O2 Flow Rate 1 05/11/23 11:36 BMI result Body Mass Index 24.9 Const: Other: General awake alert x3, resting comfortably in no acute distress. Neck supple no JVD. CVS regular rate rhythm, Respiratory lungs clear to auscultation, no respiratory distress, no wheeze, no rhonchi. Gastrointestinal abdomen soft, non tender, bowel sounds audible, no guarding , no rigidity. Extremities no edema. Neuro nonfocal Skin no rash/no pallor Psych appropriate affect Objective Data Active Medications Acetaminophen (Acetaminophen 325 Mg Tablet) 650 mg PO Q6H PRN PRN Reason: Pain, Mild (Pain Scale 1-3) Aspirin (Aspirin 325 Mg Tablet) 325 mg PO Q12H [facility] Last Admin: 05/11/23 23:47 Dose: 325 mg Documented By: JOSE L Atorvastatin Calcium (Atorvastatin Calcium 10 Mg Tablet) 10 mg PO DAILY [facility] Last Admin: 05/12/23 08:23 Dose: 10 mg Documented By: ANITA Dextrose (Dextrose 50 % 25 Gm/50 Ml Syringe) 25 gm IVPUSH Q15M PRN; Protocol PRN Reason: per Hypoglycemia Standing Ord. Docusate Sodium (Docusate Sodium 100 Mg Capsule) 100 mg PO BID [facility] Last Admin: 05/12/23 08:20 Dose: 100 mg Documented By: ANITA Gabapentin (Gabapentin 100 Mg Capsule) 100 mg PO BEDTIME [facility] Last Admin: 05/11/23 20:32 Dose: 100 mg Documented By: TODD Glucose (Glucose Gel 15 Gm Gel..Gram.) 15 gm PO Q15M PRN; Protocol PRN Reason: per Hypoglycemia Standing Ord. Hydromorphone HCl (Hydromorphone Hcl 0.5 Mg/0.5 Ml Syringe) 0.25 mg IVPUSH Q4H PRN; Protocol PRN Reason: Pain, Severe (Pain Scale 7-10) Hydromorphone HCl (Hydromorphone Hcl 0.5 Mg/0.5 Ml Syringe) 0.5 mg IVPUSH Q4H PRN; Protocol PRN Reason: Pain, Severe (Pain Scale 7-10) Cefazolin Sodium/Dextrose (Ancef) 2 gm in 50 mls @ 100 mls/hr IV Q8H [facility] Stop: 05/12/23 13:59 Last Infusion: 05/12/23 06:09 Dose: Infused Documented By: JOSE L Insulin Human Lispro (Insulin Lispro 100 Unit/Ml 3 Ml Vial) 0 unit SUBCUT QIDACHS [facility]; Protocol Last Admin: 05/12/23 08:11 Dose: Not Given Documented By: ANITA Non-Admin Reason: No Insulin Coverage Comments: pt. checks own sugar per MD order, sugar 145 this am. Methocarbamol (Methocarbamol 500 Mg Tablet) 500 mg PO TID [facility] Last Admin: 05/12/23 08:22 Dose: 500 mg Documented By: ANITA Metoprolol Succinate (Metoprolol Succinate Er 50 Mg Tab.Er.24h) 50 mg PO DAILY [facility]; Protocol Last Admin: 05/12/23 08:22 Dose: 50 mg Documented By: ANITA Ondansetron HCl (Ondansetron Hcl 4 Mg/2 Ml Vial) 4 mg IVPUSH Q8H PRN PRN Reason: Nausea and Vomiting Oxycodone HCl (Oxycodone Hcl Immed Release 5 Mg Tablet) 5 mg PO Q4H PRN PRN Reason: Pain, Moderate(Pain Scale 4-6) Oxycodone HCl (Oxycodone Hcl Er 10 Mg Tab.Er.12h) 10 mg PO BID [facility] Last Admin: 05/12/23 08:23 Dose: 10 mg Documented By: ANITA Oxycodone HCl (Oxycodone Hcl Immed Release 5 Mg Tablet) 10 mg PO Q4H PRN PRN Reason: Pain, Moderate(Pain Scale 4-6) Last Admin: 05/12/23 03:34 Dose: 10 mg Documented By: JOSE L Pharmacy Consult (Consult Rx Vancomycin Dosing) 1 each MISCELLANE DAILY PRN PRN Reason: Consult order Potassium Chloride (Potassium Chloride Er 10 Meq Tablet.Er) 10 meq PO DAILY [facility] Last Admin: 05/12/23 08:22 Dose: 10 meq Documented By: ANITA Sodium Chloride (0.9 % Sodium Chloride Flush 3 Ml Syringe) 3 ml IVFLUSH QSHIFT [facility] Last Admin: 05/12/23 08:12 Dose: Not Given Documented By: ANITA Non-Admin Reason: IV Running Trazodone HCl (Trazodone Hcl 100 Mg Tablet) 100 mg PO BEDTIME [facility] Last Admin: 05/11/23 20:32 Dose: 100 mg Documented By: TODD Venlafaxine HCl (Venlafaxine Hcl 25 Mg Tablet) 37.5 mg PO DAILY [facility] Last Admin: 05/12/23 08:20 Dose: 37.5 mg Documented By: ANITA Labs 05/12/23 04:59 05/12/23 04:59 Labs: Laboratory Results - last 24 hr 05/12/23 04:59 MCV 90.2 MCH 31.3 MCHC 34.6 RDW 13.1 Plt Count 194 MPV 9.9 Immature Gran % (Auto) 0.2 Neut % (Auto) 76.5 H Lymph % (Auto) 12.4 L [place] % (Auto) 10.9 Eos % (Auto) 0.0 Baso % (Auto) 0.0 Lymph # (Auto) 0.7 L [place] # (Auto) 0.6 Eos # (Auto) 0.0 Baso # (Auto) 0.0 Abs Immat Gran (auto) 0.01 Absolute Neuts (auto) 4.1 Absolute Nucleated RBC 0.000 Nucleated RBC % (auto) 0.0 Anion Gap 11 L Estim Creat Clear Calc 70.6 Estimated GFR > 60 Fasting Glucose 152 H Calcium 8.2 L Iron 25 L TIBC 206 L % Saturation 12 L Unsat Iron Binding 181 Ferritin 146 Assessment and Plan (1) Osteoarthritis of left hip: Status: Acute (2) Diabetes: Status: Acute (3) Hypertension: Status: Acute Plan 63 year old female with history of non insulin dependent type 2 diabetes, htn, mood disorder admitted to orthopedic surgery with consult placed to hospitalist service for medical management. #OA left hip s/o AGUSTÍN POD 1 -good pain control , plan per ortho surgery # normocytic anemia question acute versus chronic Had brief episode of mild lightheadedness, otherwise asymptomatic, iron studies not suggestive of iron deficiency, stable ferritin ,question anemia of chronic disease DC IV fluids, repeat CBC, check stool guaiac #Non-insulin dependent type 2 diabetes stable blood sugars continue POC glucose, diabetic diet,humalog on sliding scale, hold metformin And resume metformin on discharge #HTN -soft blood pressure will hold Zestril/hydrochlorothiazide/Cardizem CD 180 mg, continue beta-blockers follow BP closely #Mood disorder -continue home meds # hyponatremia question acute versus chronic, no prior labs available, will repeat sodium, discontinue hydrochlorothiazide and IV fluids obtain serum osmolality. Disposition as per ortho. Quality Stroke Does the patient have a stroke diagnosis?: No VTE Prior VTE?: No VTE Risk Level:: Surgical - low VTE Device Contraindication: Treatment Not Indicated VTE Drug Contraindication: N/A - Med Ordered
[2023-05-12] MEDS: Insulin Lispro 100 UNIT/ML 3 ML VIAL SUBCUT ×2 (11:43→16:44)
[2023-05-12] MEDS: Aspirin 325 MG TABLET PO ×2 (11:44→23:17)
--- NOTE | 2023-05-12 12:03 | HO.POSTANES ---
Post Anesthesia Evaluation Post Anesthesia Evaluation Date of Service: 05/12/23 Vital Signs: Vital Signs Temp Pulse Resp BP Pulse Ox O2 Del Method 05/12/23 10:58 68 109/55 L 95 05/12/23 07:25 97.6 F 68 18 109/55 L 95 Room Air 05/12/23 03:37 66 18 114/82 05/12/23 03:12 98.2 F 65 19 97/53 L 95 Room Air Anesthesia: General Mental Status: Awake Pain Control: Satisfactory Nausea/Vomiting: None Hydration: Adequate Anesthesia-Related Issues: No Anes. Related Issues
--- NOTE | 2023-05-12 12:55 | MHC.CM.PN ---
Patient is from home alone. Functionally independent. No services or medical equipment. PCP: Kee Barker MD HCP: patient states she has a HCP at home naming brother Josh as agent. Copy requested. DP: PT rec home w/ services. Patient agreeable to plan. [facility] referral per request. Potential dc later today. CM will continue to follow.
[2023-05-12] MEDS: Ferrous Sulfate 324 MG TABLET.DR PO (16:44)
[2023-05-12] MEDS: 0.9 % Sodium Chloride Flush 3 ML SYRINGE IVFLUSH ×2 (16:48→20:29)
[2023-05-12 17:11] LABS: Osmolality, Serum 271 mosm/kg (281-305)
--- NOTE | 2023-05-12 20:24 | PC.NURSE ---
Pt checks own blood sugar, POC 112, no insulin coverage per sliding scale.
[2023-05-12] MEDS: oxyCODONE HCl Immed Release 5 MG TABLET PO (20:28)
[2023-05-12] MEDS: Ascorbic Acid 250 MG TABLET PO (20:28)
[2023-05-12] MEDS: Gabapentin 100 MG CAPSULE PO (20:29)
[2023-05-12] MEDS: traZODone HCL 100 MG TABLET PO (20:29)
[2023-05-13] VITALS (13 sets, daily range): BP systolic 92–122; BP diastolic 53–66; PULSE 70–82; RESP 16–18; TEMP 36–37; O2SAT 92–96
[2023-05-13 06:00] LABS: MANUAL DIFF FLAG NO
[2023-05-13 06:10] LABS: Basophils Percent Auto 0.2 % (0-2); Eosinophils Percent Auto 0.4 % (0-4); Hematocrit 23.3 % (37.0-47.0); Hemoglobin 7.9 g/dl (12.0-16.0); Imm Gran Abs Auto 0.01 X10*3/uL (0.00-0.03); Imm Gran Pct Auto 0.2 % (0.0-0.4); Lymphocytes Percent Auto 20.4 % (20-40); Mean Corpuscular HGB Conc 33.9 g/dl (31.0-35.0); Mean Corpuscular Hemoglobin 30.9 pg (27.0-33.0); Mean Platelet Volume 9.9 fL (9.4-12.3); Monocytes Absolute Auto 0.5 X10*3/uL (0.1-1.2); Monocytes Percent Auto 9.6 % (2-11); Neutrophils Absolute Auto 3.3 x10*3/uL (2.0-8.3); Neutrophils Percent Auto 69.2 % (45-73); Platelet Count 202 X10*3/uL (160-400); Red Blood Count 2.56 X10*6/uL (4.20-5.50); White Blood Count 4.7 X10*3/uL (4.8-10.8)
[2023-05-13 06:25] LABS: Anion Gap 11 (12-20); Blood Urea Nitrogen 10 mg/dL (9-16); Calcium 8.4 mg/dL (8.4-10.2); Carbon Dioxide 29 mmol/L (22-29); Chloride 91 mmol/L (96-108); Creatinine Clr Calc Pharmacy 69.5; Estimated Glomerular Filt Rate > 60; Glucose Fasting 131 mg/dL (60-99); Potassium 3.9 mmol/L (3.3-5.1); Sodium 127 mmol/L (135-145)
[2023-05-13] MEDS: 0.9 % Sodium Chloride Flush 3 ML SYRINGE IVFLUSH ×3 (07:38→23:33)
[2023-05-13] MEDS: methocarbamoL 500 MG TABLET PO ×3 (07:44→21:12)
[2023-05-13] MEDS: Atorvastatin Calcium 10 MG TABLET PO (07:45)
[2023-05-13] MEDS: Venlafaxine HCL 25 MG TABLET 37.5 MG PO (07:45)
[2023-05-13] MEDS: Metoprolol Succinate ER 50 MG TAB.ER.24H PO (07:46)
[2023-05-13] MEDS: Ascorbic Acid 250 MG TABLET PO ×2 (07:46→21:12)
[2023-05-13] MEDS: oxyCODONE HCl Immed Release 5 MG TABLET 10 MG PO ×3 (07:46→21:18)
[2023-05-13] MEDS: Ferrous Sulfate 324 MG TABLET.DR PO ×2 (07:46→16:32)
[2023-05-13] MEDS: Docusate Sodium 100 MG CAPSULE PO ×2 (07:46→21:12)
[2023-05-13] MEDS: Potassium Chloride ER 10 MEQ TABLET.ER PO (07:47)
--- NOTE | 2023-05-13 08:22 | PM.PNORT ---
Subjective Subjective Date of Service: 05/13/23 Principal diagnosis: s/p left total hip arthroplasty Interval history: POD2 s/p LTHA Patient is resting in the recliner comfortably No overnight events Pain is managed Reports fatigue and mild lightheadedness Physical Exam Vital Signs: Vital Signs: Last Vital Signs Temp 97.2 F 05/13/23 07:21 Pulse 73 05/13/23 07:21 Resp 16 05/13/23 07:21 BP 117/54 L 05/13/23 07:21 Pulse Ox 96 05/13/23 07:21 O2 Del Method Room Air 05/13/23 07:21 O2 Flow Rate 1 05/11/23 11:36 BMI result Body Mass Index 24.9 Const: General: cooperative, healthy appearing and no acute distress Resp: Effort & Inspection: normal respiratory effort and able to speak in complete sentences Cardio: Rate: regular rate Peripheral pulses: Peripheral pulses 2+ throughout GI: Palpation (GI): Soft to palpation Skin: Lesions: no lesions Rashes: no rashes Extrem: Other: Left hip dressing is c/d/i. Able to dorsi/plantar flex. Calf is supple and nontender. Sensation intact. Pedal pulse intact. Procedures Date of Service Date of Service: 05/13/23 Progress Note: A&P Assessment and plan (1) Status post total hip replacement, left: Status: Acute Plan Continue pain mgmnt Continue ASA for dvt ppx Continue PT/OT for LTHA 2 Units of pRBC's ordered -Cont. to monitor H&H and improvement of light headedness and fatigue Dispo planning- PT, pain mgmnt, Continued hospitalization for physical therapy for safe discharge home Time Spent With Patient Time: Total time managing care of this patient today ____ minutes. Quality Stroke Does the patient have a stroke diagnosis?: No VTE Prior VTE?: No VTE Risk Level:: Surgical - low VTE Device Contraindication: Treatment Not Indicated VTE Drug Contraindication: N/A - Med Ordered
[2023-05-13] MEDS: oxyCODONE HCl ER 10 MG TAB.ER.12H PO ×2 (09:06→21:11)
[2023-05-13] MEDS: Insulin Lispro 100 UNIT/ML 3 ML VIAL SUBCUT ×2 (12:47→21:11)
[2023-05-13] MEDS: Aspirin 325 MG TABLET PO ×2 (12:48→23:33)
--- NOTE | 2023-05-13 13:43 | MHC.CM.PN ---
Per MD no discharge today. Patient requires a blood transfusion today. DP Home with [facility]. Patient has arranged for transportation home.
--- NOTE | 2023-05-13 14:08 | P.PNIM_ITS ---
Subjective Subjective Date of Service: 05/13/23 Interval History: Good pain control, complaining of lightheadedness, no chest pain, no palpitation, no shortness of breath, participated with physical therapy, tolerating diet denies hematemesis, no melena, no hematuria. Review of Systems All other system reviewed and negative Physical Exam 2 Vital Signs: Vital Signs: Last Vital Signs Temp 96.8 F 05/13/23 13:15 Pulse 82 05/13/23 13:15 Resp 18 05/13/23 13:15 BP 109/53 L 05/13/23 13:15 Pulse Ox 96 05/13/23 08:54 O2 Del Method Room Air 05/13/23 07:21 O2 Flow Rate 1 05/11/23 11:36 BMI result Body Mass Index 24.9 Const: Other: General awake alert x3, resting comfortably in no acute distress. Neck supple no JVD. CVS regular rate rhythm, Respiratory lungs clear to auscultation, no respiratory distress, no wheeze, no rhonchi. Gastrointestinal abdomen soft, non tender, bowel sounds audible, no guarding , no rigidity. Extremities no edema., left hip dressing clean and dry. Neuro non focal Skin no rash /mild pallor Psych appropriate affect Objective Data Active Medications Acetaminophen (Acetaminophen 325 Mg Tablet) 650 mg PO Q6H PRN PRN Reason: Pain, Mild (Pain Scale 1-3) Ascorbic Acid (Ascorbic Acid 250 Mg Tablet) 250 mg PO BID [facility] Last Admin: 05/13/23 07:46 Dose: 250 mg Documented By: ANITA Aspirin (Aspirin 325 Mg Tablet) 325 mg PO Q12H [facility] Last Admin: 05/13/23 12:48 Dose: 325 mg Documented By: ANITA Atorvastatin Calcium (Atorvastatin Calcium 10 Mg Tablet) 10 mg PO DAILY [facility] Last Admin: 05/13/23 07:45 Dose: 10 mg Documented By: ANITA Dextrose (Dextrose 50 % 25 Gm/50 Ml Syringe) 25 gm IVPUSH Q15M PRN; Protocol PRN Reason: per Hypoglycemia Standing Ord. Docusate Sodium (Docusate Sodium 100 Mg Capsule) 100 mg PO BID [facility] Last Admin: 05/13/23 07:46 Dose: 100 mg Documented By: ANITA Ferrous Sulfate (Ferrous Sulfate 324 Mg Tablet.) 324 mg PO BIDWM [facility] Last Admin: 05/13/23 07:46 Dose: 324 mg Documented By: ANITA Gabapentin (Gabapentin 100 Mg Capsule) 100 mg PO BEDTIME [facility] Last Admin: 05/12/23 20:29 Dose: 100 mg Documented By: DINORAH Glucose (Glucose Gel 15 Gm Gel..Gram.) 15 gm PO Q15M PRN; Protocol PRN Reason: per Hypoglycemia Standing Ord. Hydromorphone HCl (Hydromorphone Hcl 0.5 Mg/0.5 Ml Syringe) 0.25 mg IVPUSH Q4H PRN; Protocol PRN Reason: Pain, Severe (Pain Scale 7-10) Hydromorphone HCl (Hydromorphone Hcl 0.5 Mg/0.5 Ml Syringe) 0.5 mg IVPUSH Q4H PRN; Protocol PRN Reason: Pain, Severe (Pain Scale 7-10) Insulin Human Lispro (Insulin Lispro 100 Unit/Ml 3 Ml Vial) 0 unit SUBCUT QIDACHS [facility]; Protocol Last Admin: 05/13/23 12:47 Dose: 2 unit Documented By: ANITA Methocarbamol (Methocarbamol 500 Mg Tablet) 500 mg PO TID [facility] Last Admin: 05/13/23 07:44 Dose: 500 mg Documented By: ANITA Metoprolol Succinate (Metoprolol Succinate Er 50 Mg Tab.Er.24h) 50 mg PO DAILY [facility]; Protocol Last Admin: 05/13/23 07:46 Dose: 50 mg Documented By: ANITA Ondansetron HCl (Ondansetron Hcl 4 Mg/2 Ml Vial) 4 mg IVPUSH Q8H PRN PRN Reason: Nausea and Vomiting Oxycodone HCl (Oxycodone Hcl Immed Release 5 Mg Tablet) 5 mg PO Q4H PRN PRN Reason: Pain, Moderate(Pain Scale 4-6) Last Admin: 05/12/23 20:28 Dose: 5 mg Documented By: DINORAH Oxycodone HCl (Oxycodone Hcl Er 10 Mg Tab.Er.12h) 10 mg PO BID [facility] Last Admin: 05/13/23 09:06 Dose: 10 mg Documented By: ANITA Oxycodone HCl (Oxycodone Hcl Immed Release 5 Mg Tablet) 10 mg PO Q4H PRN PRN Reason: Pain, Moderate(Pain Scale 4-6) Last Admin: 05/13/23 07:46 Dose: 10 mg Documented By: ANITA Pharmacy Consult (Consult Rx Vancomycin Dosing) 1 each MISCELLANE DAILY PRN PRN Reason: Consult order Potassium Chloride (Potassium Chloride Er 10 Meq Tablet.Er) 10 meq PO DAILY [facility] Last Admin: 05/13/23 07:47 Dose: 10 meq Documented By: ANITA Sodium Chloride (0.9 % Sodium Chloride Flush 3 Ml Syringe) 3 ml IVFLUSH QSHIFT [facility] Last Admin: 05/13/23 07:38 Dose: 3 ml Documented By: ANITA Trazodone HCl (Trazodone Hcl 100 Mg Tablet) 100 mg PO BEDTIME [facility] Last Admin: 05/12/23 20:29 Dose: 100 mg Documented By: DINORAH Venlafaxine HCl (Venlafaxine Hcl 25 Mg Tablet) 37.5 mg PO DAILY [facility] Last Admin: 05/13/23 07:45 Dose: 37.5 mg Documented By: ANITA Labs 05/13/23 05:16 05/13/23 05:16 Labs: Laboratory Results - last 24 hr 05/12/23 05/13/23 05/13/23 16:05 05:16 09:28 MCV 91.0 MCH 30.9 MCHC 33.9 RDW 13.0 Plt Count 202 MPV 9.9 Immature Gran % (Auto) 0.2 Neut % (Auto) 69.2 Lymph % (Auto) 20.4 [place] % (Auto) 9.6 Eos % (Auto) 0.4 Baso % (Auto) 0.2 Lymph # (Auto) 1.0 L [place] # (Auto) 0.5 Eos # (Auto) 0.0 Baso # (Auto) 0.0 Abs Immat Gran (auto) 0.01 Absolute Neuts (auto) 3.3 Absolute Nucleated RBC 0.000 Nucleated RBC % (auto) 0.0 Anion Gap 11 L Estim Creat Clear Calc 69.5 Estimated GFR > 60 Fasting Glucose 131 H Osmolality 271 L Calcium 8.4 Blood Type B Negative Antibody Screen NEGATIVE Crossmatch See Detail Assessment and Plan (1) Osteoarthritis of left hip: Status: Acute (2) Diabetes: Status: Acute (3) Hypertension: Status: Acute Plan 63 year old female with history of non insulin dependent type 2 diabetes, htn, mood disorder admitted to orthopedic surgery with consult placed to hospitalist service for medical management. #OA left hip s/o AGUSTÍN POD 2 -good pain control , plan per ortho surgery # acute normocytic anemia due to acute blood loss post surgery Mild lightheadedness, hematocrit remains low 23.3, unchanged since yesterday iron studies not suggestive of iron deficiency, stable ferritin , but low iron saturation Obtained records from [facility] patient hematocrit 39 on 03/06/2023 Continue iron replacement and agree with 2 units of packed RBC, monitor H&H #Non-insulin dependent type 2 diabetes stable blood sugars continue POC glucose, diabetic diet,humalog on sliding scale, hold metformin resume metformin on discharge #HTN -persistent soft blood pressure will hold Zestril/hydrochlorothiazide/Cardizem CD 180 mg, continue beta-blockers, follow BP closely #Mood disorder -continue home meds # acute hyponatremia obtained labs from [facility] patient's sodium 133 February 2023, low serum osmolality likely due to excessive fluid intake and due to hctz will restrict by mouth fluids ,Follow BMP , DC hydrochlorothiazide Disposition as per ortho. Quality Stroke Does the patient have a stroke diagnosis?: No VTE Prior VTE?: No VTE Risk Level:: Surgical - low VTE Device Contraindication: Treatment Not Indicated VTE Drug Contraindication: N/A - Med Ordered
--- NOTE | 2023-05-13 18:46 | PC.NURSE ---
2 units of blood were ordered and given. 2nd unit started at 151 and ended at 171, no transfusion reaction.
[2023-05-13] MEDS: traZODone HCL 100 MG TABLET PO (21:12)
[2023-05-13] MEDS: Gabapentin 100 MG CAPSULE PO (21:12)
--- NOTE | 2023-05-13 21:32 | PC.NURSE ---
patient reported a BS 189 using her own device
[2023-05-14 04:00] VITALS: BP 117/59; PULSE 68; RESP 16; TEMP 36.3; O2SAT 96
[2023-05-14] MEDS: Acetaminophen 325 MG TABLET 650 MG PO (04:37)
[2023-05-14 06:21] LABS: MANUAL DIFF FLAG NO
[2023-05-14 06:41] LABS: Basophils Percent Auto 0.4 % (0-2); Eosinophils Absolute Auto 0.1 X10*3/uL (0.0-0.4); Eosinophils Percent Auto 2.2 % (0-4); Hematocrit 32.6 % (37.0-47.0); Hemoglobin 11.1 g/dl (12.0-16.0); Imm Gran Abs Auto 0.02 X10*3/uL (0.00-0.03); Imm Gran Pct Auto 0.4 % (0.0-0.4); Lymphocytes Absolute Auto 1.1 X10*3/uL (1.2-4.9); Lymphocytes Percent Auto 22.2 % (20-40); Mean Corpuscular Hemoglobin 31.7 pg (27.0-33.0); Mean Corpuscular Volume 93.1 fL (80.0-98.0); Mean Platelet Volume 9.9 fL (9.4-12.3); Monocytes Absolute Auto 0.5 X10*3/uL (0.1-1.2); Monocytes Percent Auto 9.1 % (2-11); Neutrophils Absolute Auto 3.3 x10*3/uL (2.0-8.3); Neutrophils Percent Auto 65.7 % (45-73); Platelet Count 186 X10*3/uL (160-400); Red Cell Distribution Width 13.5 % (11.0-16.0)
[2023-05-14 07:17] VITALS: BP 135/66; PULSE 69; RESP 18; TEMP 36.8; O2SAT 97
[2023-05-14] MEDS: Metoprolol Succinate ER 50 MG TAB.ER.24H PO (08:10)
[2023-05-14] MEDS: Ferrous Sulfate 324 MG TABLET.DR PO (08:10)
[2023-05-14] MEDS: Atorvastatin Calcium 10 MG TABLET PO (08:10)
[2023-05-14] MEDS: oxyCODONE HCl ER 10 MG TAB.ER.12H PO (08:10)
[2023-05-14] MEDS: Docusate Sodium 100 MG CAPSULE PO (08:10)
[2023-05-14] MEDS: Ascorbic Acid 250 MG TABLET PO (08:10)
[2023-05-14] MEDS: Venlafaxine HCL 25 MG TABLET 37.5 MG PO (08:10)
[2023-05-14] MEDS: Potassium Chloride ER 10 MEQ TABLET.ER PO (08:10)
[2023-05-14] MEDS: methocarbamoL 500 MG TABLET PO (08:10)
[2023-05-14] MEDS: 0.9 % Sodium Chloride Flush 3 ML SYRINGE IVFLUSH (08:12)
--- NOTE | 2023-05-14 08:54 | MHC.CM.PN ---
Patient is discharged today to home with NA. She has arranged for a family member to provide transport to home.
[2023-05-14 09:05] LABS: Anion Gap 11 (12-20)
[2023-05-14 09:09] LABS: Blood Urea Nitrogen 8 mg/dL (9-16); Calcium 8.9 mg/dL (8.4-10.2); Carbon Dioxide 31 mmol/L (22-29); Chloride 98 mmol/L (96-108); Creatinine Clr Calc Pharmacy 66.5; Estimated Glomerular Filt Rate > 60; Glucose Fasting 125 mg/dL (60-99); Potassium 4.7 mmol/L (3.3-5.1); Sodium 135 mmol/L (135-145)
[2023-05-14 09:41] VITALS: BP 135/66; PULSE 69; O2SAT 97
--- NOTE | 2023-05-14 11:00 | P.PNIM_ITS ---
Subjective Subjective Date of Service: 05/14/23 Interval History: Being followed for hyponatremia, anemia Patient feeling better denies lightheadedness, no dizziness good pain control worse with ambulation left hip no other acute events overnight, tolerating diet no nausea no vomiting no abdominal pain has history of IBS and chronic constipation. Review of Systems All other system reviewed and negative Physical Exam 2 Vital Signs: Vital Signs: Last Vital Signs Temp 98.2 F 05/14/23 07:17 Pulse 69 05/14/23 09:41 Resp 18 05/14/23 07:17 BP 135/66 05/14/23 09:41 Pulse Ox 97 05/14/23 09:41 O2 Del Method Room Air 05/14/23 07:17 O2 Flow Rate 1 05/11/23 11:36 BMI result Body Mass Index 24.9 Const: Other: General awake alert x3, resting comfortably in no acute distress. Neck supple no JVD. CVS regular rate rhythm, Respiratory lungs clear to auscultation, no respiratory distress, no wheeze, no rhonchi. Gastrointestinal abdomen soft, non tender, bowel sounds audible, no guarding , no rigidity. Extremities no edema., left hip dressing clean and dry. Neuro non focal Skin no rash Psych appropriate affect Objective Data Active Medications Acetaminophen (Acetaminophen 325 Mg Tablet) 650 mg PO Q6H PRN PRN Reason: Pain, Mild (Pain Scale 1-3) Last Admin: 05/14/23 04:37 Dose: 650 mg Documented By: DEZ Ascorbic Acid (Ascorbic Acid 250 Mg Tablet) 250 mg PO BID [facility] Last Admin: 05/14/23 08:10 Dose: 250 mg Documented By: CAIN Aspirin (Aspirin 325 Mg Tablet) 325 mg PO Q12H [facility] Last Admin: 05/13/23 23:33 Dose: 325 mg Documented By: DEZ Atorvastatin Calcium (Atorvastatin Calcium 10 Mg Tablet) 10 mg PO DAILY [facility] Last Admin: 05/14/23 08:10 Dose: 10 mg Documented By: CAIN Dextrose (Dextrose 50 % 25 Gm/50 Ml Syringe) 25 gm IVPUSH Q15M PRN; Protocol PRN Reason: per Hypoglycemia Standing Ord. Docusate Sodium (Docusate Sodium 100 Mg Capsule) 100 mg PO BID [facility] Last Admin: 05/14/23 08:10 Dose: 100 mg Documented By: CAIN Ferrous Sulfate (Ferrous Sulfate 324 Mg Tablet.Dr) 324 mg PO BIDWM [facility] Last Admin: 05/14/23 08:10 Dose: 324 mg Documented By: CAIN Gabapentin (Gabapentin 100 Mg Capsule) 100 mg PO BEDTIME [facility] Last Admin: 05/13/23 21:12 Dose: 100 mg Documented By: TODD Glucose (Glucose Gel 15 Gm Gel..Gram.) 15 gm PO Q15M PRN; Protocol PRN Reason: per Hypoglycemia Standing Ord. Hydromorphone HCl (Hydromorphone Hcl 0.5 Mg/0.5 Ml Syringe) 0.25 mg IVPUSH Q4H PRN; Protocol PRN Reason: Pain, Severe (Pain Scale 7-10) Hydromorphone HCl (Hydromorphone Hcl 0.5 Mg/0.5 Ml Syringe) 0.5 mg IVPUSH Q4H PRN; Protocol PRN Reason: Pain, Severe (Pain Scale 7-10) Insulin Human Lispro (Insulin Lispro 100 Unit/Ml 3 Ml Vial) 0 unit SUBCUT QIDACHS [facility]; Protocol Last Admin: 05/14/23 07:29 Dose: Not Given Documented By: CAIN Non-Admin Reason: No Insulin Coverage Methocarbamol (Methocarbamol 500 Mg Tablet) 500 mg PO TID [facility] Last Admin: 05/14/23 08:10 Dose: 500 mg Documented By: CAIN Metoprolol Succinate (Metoprolol Succinate Er 50 Mg Tab.Er.24h) 50 mg PO DAILY [facility]; Protocol Last Admin: 05/14/23 08:10 Dose: 50 mg Documented By: CAIN Ondansetron HCl (Ondansetron Hcl 4 Mg/2 Ml Vial) 4 mg IVPUSH Q8H PRN PRN Reason: Nausea and Vomiting Oxycodone HCl (Oxycodone Hcl Immed Release 5 Mg Tablet) 5 mg PO Q4H PRN PRN Reason: Pain, Moderate(Pain Scale 4-6) Last Admin: 05/12/23 20:28 Dose: 5 mg Documented By: DINORAH Oxycodone HCl (Oxycodone Hcl Er 10 Mg Tab.Er.12h) 10 mg PO BID [facility] Last Admin: 05/14/23 08:10 Dose: 10 mg Documented By: CAIN Oxycodone HCl (Oxycodone Hcl Immed Release 5 Mg Tablet) 10 mg PO Q4H PRN PRN Reason: Pain, Moderate(Pain Scale 4-6) Last Admin: 05/13/23 21:18 Dose: 10 mg Documented By: TODD Pharmacy Consult (Consult Rx Vancomycin Dosing) 1 each MISCELLANE DAILY PRN PRN Reason: Consult order Potassium Chloride (Potassium Chloride Er 10 Meq Tablet.Er) 10 meq PO DAILY [facility] Last Admin: 05/14/23 08:10 Dose: 10 meq Documented By: CAIN Sodium Chloride (0.9 % Sodium Chloride Flush 3 Ml Syringe) 3 ml IVFLUSH QSHIFT [facility] Last Admin: 05/14/23 08:12 Dose: 3 ml Documented By: CAIN Trazodone HCl (Trazodone Hcl 100 Mg Tablet) 100 mg PO BEDTIME [facility] Last Admin: 05/13/23 21:12 Dose: 100 mg Documented By: TODD Venlafaxine HCl (Venlafaxine Hcl 25 Mg Tablet) 37.5 mg PO DAILY [facility] Last Admin: 05/14/23 08:10 Dose: 37.5 mg Documented By: CAIN Labs 05/14/23 05:36 05/14/23 08:21 Labs: Laboratory Results - last 24 hr 05/13/23 05/14/23 05/14/23 09:28 05:36 08:21 MCV 93.1 MCH 31.7 MCHC 34.0 RDW 13.5 Plt Count 186 MPV 9.9 Immature Gran % (Auto) 0.4 Neut % (Auto) 65.7 Lymph % (Auto) 22.2 [place] % (Auto) 9.1 Eos % (Auto) 2.2 Baso % (Auto) 0.4 Lymph # (Auto) 1.1 L [place] # (Auto) 0.5 Eos # (Auto) 0.1 Baso # (Auto) 0.0 Abs Immat Gran (auto) 0.02 Absolute Neuts (auto) 3.3 Absolute Nucleated RBC 0.000 Nucleated RBC % (auto) 0.0 Hold Purple Top SEE NOTE Anion Gap 11 L Estim Creat Clear Calc 66.5 Estimated GFR > 60 Fasting Glucose 125 H Calcium 8.9 Blood Type B Negative Antibody Screen NEGATIVE Crossmatch See Detail Assessment and Plan (1) Osteoarthritis of left hip: Status: Acute (2) Diabetes: Status: Acute (3) Hypertension: Status: Acute Plan 63 year old female with history of non insulin dependent type 2 diabetes, htn, mood disorder admitted to orthopedic surgery with consult placed to hospitalist service for medical management. #OA left hip s/o AGUSTÍN POD 3 -good pain control , plan per ortho surgery Continue stool softeners, added MiraLax # acute normocytic anemia due to acute blood loss post surgery Status post 2 units of packed RBC hematocrit improved to 32.6 iron studies not suggestive of iron deficiency, stable ferritin , but low iron saturation Obtained records from [facility] patient hematocrit 39 on 03/06/2023 Continue iron replacement , monitor H&H as outpatient #Non-insulin dependent type 2 diabetes stable blood sugars continue POC glucose, diabetic diet,humalog on sliding scale resume metformin on discharge #HTN -soft blood pressures on admission, blood pressure improving continue beta- blockers and Cardizem DC Zestril and hydrochlorothiazide and follow BP closely #Mood disorder -continue home meds # acute hyponatremia obtained labs from [facility] patient's sodium 133 February 2023, low serum osmolality likely due to excessive fluid intake and due to hctz Sodium improved to 135 with fluid restriction, discontinue hydrochlorothiazide. Recommend outpatient follow-up with PCP and repeat bmp 1 week. Disposition as per ortho. Quality Stroke Does the patient have a stroke diagnosis?: No VTE Prior VTE?: No VTE Risk Level:: Surgical - low VTE Device Contraindication: Treatment Not Indicated VTE Drug Contraindication: N/A - Med Ordered
[2023-05-14] MEDS: Aspirin 325 MG TABLET PO (11:16)
[2023-05-14] MEDS: polyethylene glycoL 3350 17 GM POWD.PACK PO (11:17)
== END 2023-05-14 12:18 | disposition home health service (06) | DRG 470 ==
LOC: HO.SSSA 06:08 → HO.S3 10:38
PROVIDERS: Hospitalist; Physician Assistant; Admitting Provider Orthopaedic Surgery; PCP Internal Medicine; Visit Provider Orthopaedic Surgery
PROC: 0SRB04A Replacement of Left Hip Joint with Ceramic on Polyethylene Synthetic Substitute, Uncemented, Open Approach (ICD-10-PCS; CPT 27130; principal; 2023-05-11 07:30)
DX: M16.12 Unilateral primary osteoarthritis, left hip (principal); E87.1 Hypo-osmolality and hyponatremia; D62 Acute posthemorrhagic anemia; E11.9 Type 2 diabetes mellitus without complications; F39 Unspecified mood [affective] disorder; D63.8 Anemia in other chronic diseases classified elsewhere; I10 Essential (primary) hypertension; I35.0 Nonrheumatic aortic (valve) stenosis; Z87.891 Personal history of nicotine dependence; Z79.84 Long term (current) use of oral hypoglycemic drugs; Z79.899 Other long term (current) drug therapy
CPT/HCPCS: 36415; 72170; 80048; 82728; 82947; 83540; 83930; 85025; 86850; 86900; 86901; 86923; 87640; 87641; 88304; 88311; 97110; 97116; 97162; 97166; 97530; 97535; 99024; C1713; C1776; J0131; J0690; J1100; J1170; J2250; J2371; J2405; J2704; J3010; J3370; J7120; P9016

== ENCOUNTER → 2023-05-11 06:06 | Outpatient (BNV) | payer OTHER, SELFPAY | PROVIDERS: Admitting Provider Orthopaedic Surgery; PCP Internal Medicine; Visit Provider Orthopaedic Surgery | DX: M16.12 Unilateral primary osteoarthritis, left hip (principal) | CPT/HCPCS: 27130; 99024 ==

== ENCOUNTER → 2023-05-11 06:06 | Outpatient (BNV) | payer OTHER, SELFPAY | PROVIDERS: Admitting Provider Orthopaedic Surgery; PCP Internal Medicine; Visit Provider Physician Assistant | DX: M16.12 Unilateral primary osteoarthritis, left hip (principal); E11.9 Type 2 diabetes mellitus without complications; I10 Essential (primary) hypertension | CPT/HCPCS: 99222; 99232 ==

== ENCOUNTER 2023-05-20 08:59 | Emergency (ER) | payer OTHER, SELFPAY ==
--- NOTE | ~2023-05-20 | XR_ITS ---
EXAMINATION: XR ABDOMEN COMPLETE CLINICAL INDICATION: Evaluation for bowel obstruction COMPARISON: None available. TECHNIQUE: 2 views of the abdomen. FINDINGS: Bowel gas pattern normal. No evidence for small bowel distention or free air or mass effect. Surgical clips are seen in the right upper quadrant and right midabdomen. There is a well-defined oval radiodensity overlying the right kidney at 9 mm. There is a left hip prosthesis. XR/XR abdomen min 2V IMPRESSION: Unremarkable study. No evidence for bowel distention.
[2023-05-20 09:09] VITALS: BP 151/94; BP 162/68; PULSE 60; PULSE 62; RESP 16; TEMP 36.9; O2SAT 100; O2SAT 98; BMI 25.7
--- NOTE | 2023-05-20 09:17 | PC.NURSE ---
aox4. ambulatory reporting decreased PO intake, associated weakness, and loss of appetitie with nausea x3 days food and water make the pt nauseous, no vomiting. no pain, no diarrhea or constipation pt taking oxycodone for pain post L. hip replacement 1.5 weeks ago. ' Pt has been taking zofran at home as prescribed by her doctor but says it has not helped. Pt states that she is not nauseous if she is not presented with food or drink. VS WNL
--- NOTE | 2023-05-20 09:30 | PC.NURSE ---
surgical site clean, no redness or drainage, raven intact
[2023-05-20] MEDS: 0.9 % Sodium Chloride 1,000 ML 999 ML IVCONT ×2 (09:52→11:05)
[2023-05-20 09:56] LABS: MANUAL DIFF FLAG NO
[2023-05-20 09:59] LABS: Basophils Percent Auto 0.4 % (0-2); Eosinophils Absolute Auto 0.1 X10*3/uL (0.0-0.4); Eosinophils Percent Auto 0.6 % (0-4); Hematocrit 37.9 % (37.0-47.0); Hemoglobin 13.1 g/dl (12.0-16.0); Imm Gran Abs Auto 0.05 X10*3/uL (0.00-0.03); Imm Gran Pct Auto 0.5 % (0.0-0.4); Lymphocytes Absolute Auto 0.8 X10*3/uL (1.2-4.9); Lymphocytes Percent Auto 8.6 % (20-40); Mean Corpuscular HGB Conc 34.6 g/dl (31.0-35.0); Mean Corpuscular Hemoglobin 32.2 pg (27.0-33.0); Mean Corpuscular Volume 93.1 fL (80.0-98.0); Mean Platelet Volume 8.8 fL (9.4-12.3); Monocytes Absolute Auto 0.6 X10*3/uL (0.1-1.2); Monocytes Percent Auto 6.4 % (2-11); Neutrophils Absolute Auto 8.2 x10*3/uL (2.0-8.3); Neutrophils Percent Auto 83.5 % (45-73); Platelet Count 348 X10*3/uL (160-400); Red Blood Count 4.07 X10*6/uL (4.20-5.50); Red Cell Distribution Width 13.5 % (11.0-16.0); White Blood Count 9.8 X10*3/uL (4.8-10.8)
[2023-05-20] MEDS: ondansetron HCL 4 MG/2 ML VIAL IVPUSH (10:02)
[2023-05-20 10:15] LABS: Alanine Aminotransferase 37 U/L (0-31); Alkaline Phosphatase 112 U/L (39-117); Aspartate Amino Transferase 22 U/L (5-31); Bilirubin Direct 0.4 mg/dL (0.0-0.5); Bilirubin Total 0.8 mg/dL (0.0-1.0); Lipase 33 U/L (8-78); Total Protein 6.8 g/dL (6.5-8.0)
[2023-05-20 10:47] LABS: Anion Gap 16 (12-20); Blood Urea Nitrogen 12 mg/dL (9-16); Calcium 9.7 mg/dL (8.4-10.2); Carbon Dioxide 25 mmol/L (22-29); Chloride 95 mmol/L (96-108); Creatinine Clr Calc Pharmacy 59.6; Estimated Glomerular Filt Rate > 60; Glucose Random 126 mg/dL (60-115); Potassium 4.9 mmol/L (3.3-5.1); Sodium 131 mmol/L (135-145)
[2023-05-20 11:46] LABS: Appearance Urine Clear; Color Urine Yellow; Glucose Urine UA Negative (Negative); Leukocyte Esterase Urine Large (3+) (Negative); Nitrite Urine Negative (Negative); PH 6.5 (5.0-9.0); UMIC TRIGGER UACC YES; Urine Blood Negative (Negative); Urine Ketones Negative (Negative); Urine Protein Negative (Neg-Trace)
[2023-05-20 11:48] LABS: Bacteria Urine 1+ (None Seen); RBC Urine 0-2 /HPF (0-2); UACC Culture Trigger YES; WBC Urine >50 /HPF (0-5)
[2023-05-20 13:13] VITALS: BP 148/74; PULSE 68; RESP 16; TEMP 36.7; O2SAT 98
--- NOTE | 2023-05-20 13:13 | PC.NURSE ---
fluids stopped, pt PO trialed
--- NOTE | 2023-05-20 14:21 | ED_ITS ---
HPI - General Adult General Chief complaint: General Medical Stated complaint: L HIP REPL 05/11/23,INCR WEAK,NO APPETITE X3 DAYS Time Seen by Provider: 05/20/23 09:06 Source: patient and EMS Mode of arrival: EMS Limitations: no limitations History of Present Illness HPI narrative: patient not eating for the past 3 days. Patient is 2 weeks out of hip replacement, still taking oxy, states she is having bowel movements but does not feel like eating or drinking Onset (ago): day(s) Related Data Home Medications Medication Instructions Recorded Confirmed atorvastatin 10 mg tablet 10 mg PO DAILY 03/03/22 05/07/23 diltiazem HCl 180 mg 180 mg PO DAILY 03/03/22 05/07/23 capsule,extended release 24 hr (Cardizem CD) metformin 500 mg tablet 1,000 mg PO BID 03/03/22 05/07/23 metoprolol succinate 50 mg 50 mg PO DAILY 03/03/22 05/07/23 tablet,extended release 24 hr potassium chloride 10 mEq 10 meq PO DAILY 03/03/22 05/07/23 capsule,extended release trazodone 50 mg tablet 100 mg PO BEDTIME 03/03/22 05/07/23 venlafaxine 37.5 mg tablet 37.5 mg PO DAILY 03/03/22 05/07/23 Previous Rx's Medication Instructions Recorded walker #1 ea 04/30/23 acetaminophen 325 mg tablet 650 mg (2 x 325 mg) PO Q6H PRN 05/12/23 Pain, Mild (Pain Scale 1-3) 30 days #240 tabs aspirin 325 mg tablet 325 mg PO Q12H 42 days #84 tabs 05/12/23 docusate sodium 100 mg capsule 100 mg PO BID 90 days #180 caps 05/12/23 gabapentin 100 mg capsule 100 mg PO BEDTIME 7 days #7 caps 05/12/23 methocarbamol 500 mg tablet 500 mg PO TID 7 days #21 tabs 05/12/23 oxycodone 5 mg tablet 5 mg PO Q4H PRN Pain, 05/12/23 Moderate(Pain Scale 4-6) 7 days #42 tabs ferrous sulfate 324 mg (65 mg 324 mg PO BIDWM #60 tabs 05/14/23 iron) tablet,delayed release polyethylene glycol 3350 17 gram 17 g PO DAILY #30 ea 05/14/23 oral powder packet ondansetron HCl 8 mg tablet 8 mg PO BID 5 days #10 tabs 05/19/23 ondansetron 4 mg disintegrating 4 mg PO Q8H 4 days #12 tabs 05/20/23 tablet Allergies Allergy/AdvReac Type Severity Reaction Status Date / Time No Known Allergies Allergy Verified 05/11/23 06:21 Review of Systems 2 Review of Systems: Yes all other systems are reviewed and are negative Neurologic: Denies Sensory deficit (Neuro) [facility] Past Medical History Medical History Osteoarthritis of left hip Back pain Arthritis Aortic stenosis Murmur IBS (irritable bowel syndrome) Rosacea Internal hemorrhoids Migraines Allergic rhinitis Insomnia Lipoma of colon Hypertension Diabetes Depression Biliary dyskinesia Diverticulitis Cataracts, bilateral Ocular hypertension Hypokalemia Dyslipidemia Surgical History History of bunionectomy H/O colonoscopy Hx of tonsillectomy H/O foot surgery Hx laparoscopic cholecystectomy Family History Family History Mother COPD (chronic obstructive pulmonary disease) Diabetes Father CAD (coronary artery disease) Paternal Grandmother CAD (coronary artery disease) Social History Social History Household Members: None Household Members Other:: [facility] Are you a primary foster care worker to a significant other at home: No Do you presently have visiting nurse or other home services: No Alcohol intake: current Alcohol intake frequency: 0-2 drinks per day Alcohol type: wine Patient Tobacco Use Status: Former Tobacco user Tobacco use type: Cigarette Years Smoked: Quit 21 years ago Smoked in Last 30 Days: No e-Cigarette/Vaping Use: Former Use Second Hand Smoke Exposure: No Use of substances other than those prescribed or required for medical reasons: No Substance Use Type: Painkillers Advance Directives: No Advance Directives Information Provided: Yes service: No Current occupational status: retired Current occupation: Former worker in [employer] in [facility] Physical Exam ED Vital Signs: Vital Signs - 24 hr 05/20/23 09:09 05/20/23 13:13 Temperature 98.4 F 98.1 F Pulse Rate 62 68 Respiratory Rate 16 16 Blood Pressure 162/68 H 148/74 H Pulse Oximetry 98 98 Oxygen Delivery Method Room Air Room Air BMI result Body Mass Index 25.7 Const Other: femle appearing tired and pale Nutritional Appearance: average body habitus Orientation/consciousness: oriented to person and patient oriented x3 Limitations: no limitations HENMT Head: Yes normal to inspection Ears: external ears normal General nose exam: Normal external nose present Mouth: Normal oral and palatal mucosa present and oropharynx normal Throat: Yes posterior oropharynx normal Eyes General: appearance normal, both eyes and all related structures Neck Neck: Yes normal visual inspection Chest Chest palpation & inspection: normal inspection of the chest Resp Auscultation: clear to auscultation bilaterally Cardio Jugular venous distension: no JVD Rate: regular rate Rhythm: regular rhythm Heart sounds: S1 normal heart sound present and S2 normal heart sound present GI Inspection: Yes normal to inspection Palpation (GI): Soft to palpation, nontender and No hepatosplenomegaly present Auscultation: normal bowel sounds General: Yes no CVA tenderness Back/Spine/Pelvis Back: no CVA tenderness Skin General skin exam: no rashes or lesions noted Neuro General: oriented to person and patient oriented x3 Cranial nerves: Yes CN's II-XII intact bilaterally Motor exam (neuro): 5/5 motor strength present throughout Sensory Exam: No Sensory deficit (Neuro) Extrem General: Yes normal to inspection Psych Appearance: grossly normal Course Reevaluation(s) Reevaluation #1: nontender abdomen, KUB negative for bowel obstruction, feeling better after hydration and zofran will dc home Time: 14:24 Medications Administered Discontinued Medications Generic Name Dose Route Start Last Admin Trade Name Freq PRN Reason Stop Dose Admin Sodium Chloride 1,000 mls @ 999 mls/hr 05/20/23 09:45 05/20/23 12:52 Ns IVCONT 05/20/23 11:45 Infused .Q1H1M DAPHNE Infusion Ondansetron HCl 4 mg 05/20/23 09:31 05/20/23 10:02 Ondansetron Hcl 4 Mg/2 Ml Vial IVPUSH 05/20/23 09:32 4 mg ONCE ONE Administration Medical Decision Making Differential Diagnosis Differential Diagnoses: The differential diagnosis associated with the presentation includes (bowel obstruction, constipation, dehydration, UTI, medication side effect) Admission/Observation Consideration of admission/observation: Escalation of care including admission/observation considered (upon arrival patient considered for admission) Lab Data MDM Lab Attestation statement: I reviewed the patient's lab results. 05/20/23 09:51 05/20/23 09:51 Labs: Lab Results 05/20/23 05/20/23 Range/Units 09:51 11:40 WBC 9.8 (4.8-10.8) X10*3/uL RBC 4.07 L (4.20-5.50) X10*6/uL Hgb 13.1 (12.0-16.0) g/dl Hct 37.9 (37.0-47.0) % MCV 93.1 (80.0-98.0) fL MCH 32.2 (27.0-33.0) pg MCHC 34.6 (31.0-35.0) g/dl RDW 13.5 (11.0-16.0) % Plt Count 348 D (160-400) X10*3/uL MPV 8.8 L (9.4-12.3) fL Immature Gran % (Auto) 0.5 H (0.0-0.4) % Neut % (Auto) 83.5 H (45-73) % Lymph % (Auto) 8.6 L (20-40) % [place] % (Auto) 6.4 (2-11) % Eos % (Auto) 0.6 (0-4) % Baso % (Auto) 0.4 (0-2) % Lymph # (Auto) 0.8 L (1.2-4.9) X10*3/uL [place] # (Auto) 0.6 (0.1-1.2) X10*3/uL Eos # (Auto) 0.1 (0.0-0.4) X10*3/uL Baso # (Auto) 0.0 (0.0-0.2) X10*3/uL Abs Immat Gran (auto) 0.05 H (0.00-0.03) X10*3/uL Absolute Neuts (auto) 8.2 (2.0-8.3) x10*3/uL Absolute Nucleated RBC 0.000 (0.0-0.012) X10*3/uL Nucleated RBC % (auto) 0.0 (0.0-0.2) /100WBC Sodium 131 L (135-145) mmol/L Potassium 4.9 (3.3-5.1) mmol/L Chloride 95 L (96-108) mmol/L Carbon Dioxide 25 (22-29) mmol/L Anion Gap 16 (12-20) BUN 12 (9-16) mg/dL Creatinine 0.77 (0.5-1.4) mg/dL Estim Creat Clear Calc 59.6 Estimated GFR > 60 Random Glucose 126 H (60-115) mg/dL Calcium 9.7 D (8.4-10.2) mg/dL Total Bilirubin 0.8 (0.0-1.0) mg/dL Direct Bilirubin 0.4 (0.0-0.5) mg/dL AST 22 (5-31) U/L ALT 37 H (0-31) U/L Alkaline Phosphatase 112 (39-117) U/L Total Protein 6.8 (6.5-8.0) g/dL Albumin 4.0 (3.5-5.0) g/dL Lipase 33 (8-78) U/L Urine Color Yellow Urine Appearance Clear Urine pH 6.5 (5.0-9.0) Ur Specific [place] 1.010 (1.005-1.025) Urine Protein Negative (Neg-Trace) mg/dL Urine Glucose (UA) Negative (Negative) mg/dL Urine Ketones Negative (Negative) mg/dL Urine Blood Negative (Negative) Urine Nitrite Negative (Negative) Ur Leukocyte Esterase Large (3+) H (Negative) Urine RBC 0-2 (0-2) /HPF Urine WBC >50 H (0-5) /HPF Ur Squamous Epith Cells 6-10 (0-2) /HPF Urine Bacteria 1+ (None Seen) Hyaline Casts 3-5 (0-2) /LPF Independent Interpretation I performed an independent interpretation of an: Plain X-Ray (no bowel obstruction, no severe stool burden) Independent Historian Clinical information obtained from an independent historian. History obtained from or confirmed by: Spouse Tests considered The following testing was considered but not selected: Ct of abdomen considered but patient with soft abdomen, no obstruction pattern on kub Prescription Management I considered prescription management with: Antibiotic (no UTI on UA) Discharge Plan Discharge Clinical Impression: Drug side effects, Acute dehydration Patient Disposition: Home, Self-Care Instructions: Dehydration (ED) Prescriptions: New ondansetron 4 mg tablet,disintegrating 4 mg PO Q8H 4 Days Qty: 12 0RF No Action (DME) walker Misc See Rx Instructions .ROUTE .MEDSUPPLY Qty: 1 0RF Rx Instructions: Folding front wheeled walker ondansetron HCl 8 mg tablet 8 mg PO BID 5 Days Qty: 10 0RF methocarbamol 500 mg Tablet 500 mg PO TID 7 Days Qty: 21 0RF acetaminophen 325 mg Tablet 650 mg PO Q6H PRN (Reason: Pain, Mild (Pain Scale 1-3)) 30 Days Qty: 240 0RF aspirin 325 mg Tablet 325 mg PO Q12H 42 Days Qty: 84 0RF docusate sodium 100 mg Capsule 100 mg PO BID 90 Days Qty: 180 0RF gabapentin 100 mg Capsule 100 mg PO BEDTIME 7 Days Qty: 7 0RF oxycodone 5 mg Tablet 5 mg PO Q4H PRN (Reason: Pain, Moderate(Pain Scale 4-6)) 7 Days Qty: 42 0RF Rx Instructions: Partial Fill upon patient request. ferrous sulfate 324 mg (65 mg iron) Tablet,Delayed Release (Dr/Ec) 324 mg PO BIDWM Qty: 60 0RF polyethylene glycol 3350 17 gram Powder In Packet 17 g PO DAILY Qty: 30 0RF atorvastatin 10 mg tablet 10 mg PO DAILY venlafaxine 37.5 mg tablet 37.5 mg PO DAILY trazodone 50 mg tablet 100 mg PO BEDTIME diltiazem HCl [Cardizem CD] 180 mg capsule,extended release 24hr 180 mg PO DAILY potassium chloride 10 mEq capsule, extended release 10 meq PO DAILY metformin 500 mg tablet 1,000 mg PO BID metoprolol succinate 50 mg tablet extended release 24 hr 50 mg PO DAILY Referrals: Kee Barker III, MD [Primary Care Provider] - 3 days
== END 2023-05-20 14:53 | disposition home or self-care (01) ==
PROVIDERS: Emergency Provider Emergency Medicine; PCP Internal Medicine
DX: E86.0 Dehydration (principal); R10.9 Unspecified abdominal pain; Z79.899 Other long term (current) drug therapy; Z87.891 Personal history of nicotine dependence
CPT/HCPCS: 36415; 74019; 80048; 80076; 81001; 83690; 85025; 87086; 96361; 96374; 99284; J2405

== ENCOUNTER 2023-05-28 12:16 | Outpatient (AMB) | payer OTHER, SELFPAY ==
[2023-05-28 12:20] VITALS: BMI 25.6
--- NOTE | 2023-05-28 12:20 | MHC.OFFVIS ---
Intake Vital Signs 05/28/23 12:20 Height 5 ft Weight 131 lb BMI 25.6 Intake Visit Reasons: Post op LT AGUSTÍN 05/11/23 Intake Note: Belkis is a 63 year old female who presents today for a post op appointment s/p LT AGUSTÍN 05/11/23 . Patient reports still having some pain, however she is doing well. She is having concerns of her left ankle swelling. Allergies No Known Allergies Allergy (Verified 05/28/23 12:23) HPI Post op LT AGUSTÍN 05/11/23 HPI Details 63-year-old female who presents in the office today 17 days status post left total hip arthroplasty, which was performed on 05/11/[address] Parks. The patient reports having some pain, however she is doing well. She expresses concern of left ankle edema. [facility] Medical History Osteoarthritis of left hip Back pain Arthritis Aortic stenosis Murmur IBS (irritable bowel syndrome) Rosacea Internal hemorrhoids Migraines Allergic rhinitis Insomnia Lipoma of colon Hypertension Diabetes Depression Biliary dyskinesia Diverticulitis Cataracts, bilateral Ocular hypertension Hypokalemia Dyslipidemia Surgical History History of bunionectomy H/O colonoscopy Hx of tonsillectomy H/O foot surgery Hx laparoscopic cholecystectomy Family History Mother COPD (chronic obstructive pulmonary disease) Diabetes Father CAD (coronary artery disease) Paternal Grandmother CAD (coronary artery disease) Social History Household Members: None Household Members Other:: [facility] Are you a primary director day care center to a significant other at home: No Do you presently have visiting nurse or other home services: No Alcohol intake: current Alcohol intake frequency: 0-2 drinks per day Alcohol type: wine Patient Tobacco Use Status: Former Tobacco user Tobacco use type: Cigarette Years Smoked: Quit 21 years ago e-Cigarette/Vaping Use: Former Use Second Hand Smoke Exposure: No Substance Use Type: Painkillers service: No Current occupational status: retired Current occupation: Former worker in [employer] in [facility] Review of Systems Const All systems reviewed & are unremarkable except as noted in HPI and below Physical Exam Vital Signs: BMI result Body Mass Index 25.6 Const General: cooperative, healthy appearing and no acute distress Resp Effort & Inspection: normal respiratory effort and able to speak in complete sentences Cardio Rate: regular rate Peripheral pulses: Peripheral pulses 2+ throughout GI Palpation (GI): Soft to palpation Skin Lesions: no lesions Rashes: no rashes Extrem Other: Left hip: Incision site is clean, dry, and intact. [place] intact. No surrounding erythema or drainage. No signs of infection. Full hip ROM in all planes. NVI. Assessment & Plan Assessment & Plan (1) Status post total hip replacement, left: Comment: 05/11/2023 Dr. Cholo Westbrook Code(s): Z96.642 - Presence of left artificial hip joint Plan Ms. Yin is a 63-year-old female who presents in the office today 17 days status post left total hip arthroplasty, which was performed on 05/11/[address] Parks. The patient reports having some pain, however she is doing well. She expresses concern of left ankle edema. [place] were removed and steri-stripes were applied. She will transition to out patient physical therapy at this time. Follow up will be in [address] Parks, or sooner if needed. I sent a prescription for antibiotics (Amoxicillin 2,000 mg PO once), prophylactically for possible dental work in the future. However, the patient was educated they should not have any major dental work for the first 3 months post op after the left total hip arthroplasty. Orders: Orders PT Evaluation and Treatment Today Z96.642 - Presence of left artificial hip joint Medications: New amoxicillin 2,000 mg (4 x 500 mg) PO ONCE 4 tabs 0RF take 4 tabs by mouth 1 hour prior to dental ppx 1 day Patient Instructions: Scribed for Angie Knutson PA-C by Cait Villegas medical officer psychiatry, on 05/28/2023 at 12:20 pm, EST. Coding Level of Care Code Global (10978) Diagnoses Status post total hip replacement, left Z96.642
== END 2023-05-28 12:59 | disposition home or self-care (01) ==
PROVIDERS: PCP Internal Medicine; Visit Provider Physician Assistant
DX: Z96.642 Presence of left artificial hip joint (principal)
CPT/HCPCS: 99024

== ENCOUNTER → 2023-05-28 12:16 | Outpatient (BNVA) | payer OTHER, SELFPAY | PROVIDERS: PCP Internal Medicine; Visit Provider Physician Assistant | DX: Z47.1 Aftercare following joint replacement surgery (principal); Z96.642 Presence of left artificial hip joint | CPT/HCPCS: J0665 ==

== ENCOUNTER 2023-06-25 10:38 | Outpatient (AMB) | payer OTHER, SELFPAY ==
[2023-06-25 10:47] VITALS: BMI 25.6
--- NOTE | 2023-06-25 10:47 | A.OFFVIS_ITS ---
Intake Vital Signs 06/25/23 10:47 Height 5 ft Weight 131 lb BMI 25.6 Intake Visit Reasons: Post op LT AGUSTÍN 05/11/23 Intake Note: Belkis is a 63 year old female who presents for her post operative appointment s/p Left AGUSTÍN 05/11/2023 . Patient reports she is doing well with little pain. She is going to physical therapy and it is going well. She continues to walk with a cane. She denies any fevers or chills. She has no longer taking narcotics for her discomfort. Allergies No Known Allergies Allergy (Verified 06/25/23 10:56) Medication List - Last Reconciled 06/25/23 by Tramaine Parks MD acetaminophen 650 mg (2 x 325 mg) PO Q6H PRN 30 days amoxicillin 2,000 mg (4 x 500 mg) PO ONCE 1 day aspirin 325 mg PO Q12H 42 days atorvastatin 10 mg PO DAILY diltiazem HCl (Cardizem CD) 180 mg PO DAILY docusate sodium 100 mg PO BID 90 days ferrous sulfate 324 mg PO BIDWM gabapentin 100 mg PO BEDTIME 7 days metformin 1,000 mg PO BID methocarbamol 500 mg PO TID 7 days metoprolol succinate ER 50 mg PO DAILY ondansetron 4 mg PO Q8H 4 days ondansetron HCl 8 mg PO BID 5 days oxycodone 5 mg PO Q4H PRN 7 days polyethylene glycol 3350 17 grams PO DAILY potassium chloride ER 10 mEq PO DAILY scopolamine base 1 patch transdermal Q3D PRN trazodone 100 mg PO BEDTIME venlafaxine 37.5 mg PO DAILY walker Folding front wheeled walker [facility] Medical History (Updated 05/21/23 @ 00:01 by Gabo See) Osteoarthritis of left hip Back pain Arthritis Aortic stenosis Murmur IBS (irritable bowel syndrome) Rosacea Internal hemorrhoids Migraines Allergic rhinitis Insomnia Lipoma of colon Hypertension Diabetes Depression Biliary dyskinesia Diverticulitis Cataracts, bilateral Ocular hypertension Hypokalemia Dyslipidemia Surgical History (Updated 06/25/23 @ 11:00 by Emma Crandall CMA) History of hip surgery (~05/11/23) History of bunionectomy H/O colonoscopy Hx of tonsillectomy H/O foot surgery Hx laparoscopic cholecystectomy Family History Mother COPD (chronic obstructive pulmonary disease) Diabetes Father CAD (coronary artery disease) Paternal Grandmother CAD (coronary artery disease) Social History Household Members: None Household Members Other:: lives alone [facility] Are you a primary home care and home health aides teacher to a significant other at home: No Do you presently have visiting nurse or other home services: No Alcohol intake: current Alcohol intake frequency: 0-2 drinks per day Alcohol type: wine Patient Tobacco Use Status: Former Tobacco user Tobacco use type: Cigarette Years Smoked: Quit 21 years ago e-Cigarette/Vaping Use: Former Use Second Hand Smoke Exposure: No Substance Use Type: Painkillers service: No Current occupational status: retired Current occupation: Former worker in [employer] in [facility] Physical Exam Vital Signs: BMI result Body Mass Index 25.6 Extrem Other: Left hip examination shows that the surgical incision is well healed, no erythema, minimal discomfort with range of motion, no tenderness over her bursa Assessment & Plan Assessment & Plan (1) Status post total hip replacement, left: Comment: 05/11/2023 Dr. Cholo Westbrook Code(s): Z96.642 - Presence of left artificial hip joint Plan Ms. Yin continues to do very well after undergoing left total hip replacement surgery on 05/11/2023. She will continue going to formal physical therapy for now. She will gradually transition to a home exercise program. She does know to take antibiotics before any dental work. She will contact me prior to her follow-up appointment in 6 weeks should any questions or concerns arise. Feel free to call me at any time should questions regarding her orthopedic management arise. Coding Level of Care Code Global (76619) Diagnoses Status post total hip replacement, left Z96.642
== END 2023-06-25 11:17 | disposition home or self-care (01) ==
PROVIDERS: PCP Internal Medicine; Visit Provider Orthopaedic Surgery
DX: Z96.642 Presence of left artificial hip joint (principal)
CPT/HCPCS: 99024

== ENCOUNTER → 2023-06-25 10:38 | Outpatient (BNVA) | payer OTHER, SELFPAY | PROVIDERS: PCP Internal Medicine; Visit Provider Orthopaedic Surgery ==

== ENCOUNTER 2023-07-17 10:00 | Outpatient (RCR) | payer OTHER, SELFPAY ==
--- NOTE | 2023-06-03 11:23 | MHC.PT.EP ---
[facility] [place] [facility] [place] [facility] [place] Office [address] Foreign Lujan [address] [phone] F: [phone] F: [phone] F: [phone] F: [phone] Physical Therapy Plan of Care Date of Evaluation: 06/03/23 Date of Surgery: 05/11/23 Diagnosis: L AGUSTÍN - s/p AGUSTÍN on L Assessment: Patient is a 63 year old R handed female who presents with s/s consistent with pain. She does not work but does like being active walking, swimming, biking. Patient past medical history includes HTN, DM and OA. Current impairments include pain, posture, ROM, strength, activity tolerance, balance, and functional mobility. Functional limitations include decreased ability to walk, stand, squat, transfer, get in and out of bed and be active. Patient is motivated with good rehab potential. Skilled PT will address impairments and functional limitations in order to achieve goals. Frequency and Duration: The patient will be seen 2x/week for 5 weeks Short Term Goals: I with HEP - 2 weeks Amb with no cane and no deviation - 3 weeks Reciprocal stair negotiation - 3 weeks Litigation Partner Goals: LEFS 56/80 - 5 weeks Strength 4/5 grossly - 5 weeks SLB > 10 seconds - 5 weeks Max pain with ADLS 2/10 - 5 weeks Swelling resolved - 5 weeks Treatment Plan: Modalities to reduce pain, spasms and effusion. Manual therapy to restore motion and function. Therapeutic exercise to improve strength and flexibility. Neuromuscular re-education for posture and balance. Therapeutic activities to return to functional activities of daily living. Electronically signed by: Donnie Sweet, PT Please sign and return to therapist. Thank you for your referral.
--- NOTE | 2024-01-07 11:08 | MHC.PT.DC ---
[facility] [place] Office [place] Office [place] Office [address] Foreign [place] [address] [phone] F: [phone] F: [phone] F: [phone] F: [phone] Physical Therapy Discharge Report Diagnosis: L AGUSTÍN - s/p AGUSTÍN on L Date of Surgery: 05/11/23 Date of Evaluation: 06/03/23 Date of Discharge: 08/10/23 Treatments to Date: 10 Cancellations to Date: No Shows to Date: Discharge Status: Achieved Goals Independent with HEP Discharge Summary: 07/17/23: I with HEP. LEFS 65/80. Amb no cane and no deviation. Strength 4/5 grossly. Pain 2/10 with ADLs. Swelling resolved. Goals met. Pt compliant and motivated throughout. She is appropriate to d/c to HEP at this time. 07/10/23: pt progressing well. some DOMS after last visit, but nothing disproportionate to the work done. we will plan to d/c to HEP [place] as pt is happy with progress and I with HEP. 07/08/23: pt progressing well with skilled PT. slight trendelenberg gait, no AD. continue to progress as tolerated. 07/03/23: pt progressing well. increased stair height. responding well to current program. educated oh HEP. 06/29; Pt had reduced stiffness after exs. Pt challenged with balance exs. Pt performed stairs with good form. with HH. 06/23; Pt fatigued after exs. Pt challenged with balance exs. Gait with sc. 06/19/23: pt progressing well with skilled PT. cues required on stairs for reducing hip drop, heel strike. 06/17/23: responded well to cues on step ups to reduce contralateral compensations. progressed to no HH assist. we will continue to progress here. 06/12/23: pt progressing well with skilled PT. no adverse reactions. updated HEP today. Patient is a 63 year old R handed female who presents with s/s consistent with pain. She does not work but does like being active walking, swimming, biking. Patient past medical history includes HTN, DM and OA. Current impairments include pain, posture, ROM, strength, activity tolerance, balance, and functional mobility. Functional limitations include decreased ability to walk, stand, squat, transfer, get in and out of bed and be active. Patient is motivated with good rehab potential. Skilled PT will address impairments and functional limitations in order to achieve goals. Electronically signed by: Donnie Sweet, PT Please sign and return to therapist. Thank you for your referral.
== END 2024-01-07 11:08 | disposition home or self-care (01) ==
LOC: HO.PTCHIC 10:00
PROVIDERS: PCP Internal Medicine; Visit Provider Physician Assistant
DX: Z96.642 Presence of left artificial hip joint (principal)
CPT/HCPCS: 97110; 97112; 97162

== ENCOUNTER 2023-08-19 07:34 | Outpatient (REF) | payer OTHER, SELFPAY ==
--- NOTE | ~2023-08-19 | XR_ITS ---
EXAMINATION: XR HIP, LEFT CLINICAL INFORMATION: Pain in left hip. COMPARISON: 05/11/2023 AP pelvis. 11/06/2022 pelvis and left hip. TECHNIQUE: AP view of the pelvis and frog-lateral view of the left hip. FINDINGS: The bones are diffusely demineralized. Degenerative changes in the imaged lower lumbar spine. Asymmetric degenerative changes in [id number]-left sacroiliac joint. Pubic symphysis is maintained. Mild degenerative changes on AP view of the right hip. Redemonstration of left total hip arthroplasty. Hardware appears intact. Alignment maintained. XR/XR hip LT min 2V IMPRESSION: Redemonstration of left total hip arthroplasty. Hardware appears intact. Alignment maintained.
== END 2023-08-19 07:35 | disposition home or self-care (01) ==
LOC: HO.HOSX 07:34
PROVIDERS: Visit Provider Orthopaedic Surgery
DX: M25.552 Pain in left hip (principal); Z96.642 Presence of left artificial hip joint; Z91.81 History of falling
CPT/HCPCS: 73502

== ENCOUNTER 2023-08-19 12:50 | Outpatient (AMB) | payer OTHER, SELFPAY ==
[2023-08-19 13:25] VITALS: BMI 25.6
--- NOTE | 2023-08-19 13:25 | A.OFFVIS_ITS ---
Vital Signs 08/19/23 13:25 Height 5 ft Weight 131 lb BMI 25.6 Intake Visit Reasons: OV - fell on left hip, AGUSTÍN 05/11/23 Intake Note: Belkis is a 63 year old female who presents for a Left hip Check after a fall on 08/07/2023 s/p Left AGUSTÍN 05/11/2023 Patient reports she is sore but just wants to make sure she didn't damage anything in the hip. She states that she lost her balance and fell into her closet when reaching for a broom. She does not take any medicines for discomfort. Allergies No Known Allergies Allergy (Verified 06/25/23 10:56) Medication List - Last Reconciled 08/19/23 by Tramaine Parks MD acetaminophen 650 mg (2 x 325 mg) PO Q6H PRN 30 days amoxicillin 2,000 mg (4 x 500 mg) PO ONCE 1 day aspirin 325 mg PO Q12H 42 days atorvastatin 10 mg PO DAILY diltiazem HCl CD (Cardizem CD) 180 mg PO DAILY docusate sodium 100 mg PO BID 90 days ferrous sulfate 324 mg PO BIDWM gabapentin 100 mg PO BEDTIME 7 days metformin 1,000 mg PO BID methocarbamol 500 mg PO TID 7 days metoprolol succinate ER 50 mg PO DAILY ondansetron 4 mg PO Q8H 4 days ondansetron HCl 8 mg PO BID 5 days oxycodone 5 mg PO Q4H PRN 7 days polyethylene glycol 3350 17 grams PO DAILY potassium chloride ER 10 mEq PO DAILY scopolamine base 1 patch transdermal Q3D PRN trazodone 100 mg PO BEDTIME venlafaxine 37.5 mg PO DAILY walker Folding front wheeled walker PFSH Medical History Osteoarthritis of left hip Back pain Arthritis Aortic stenosis Murmur IBS (irritable bowel syndrome) Rosacea Internal hemorrhoids Migraines Allergic rhinitis Insomnia Lipoma of colon Hypertension Diabetes Depression Biliary dyskinesia Diverticulitis Cataracts, bilateral Ocular hypertension Hypokalemia Dyslipidemia Surgical History History of hip surgery (~05/11/23) History of bunionectomy H/O colonoscopy Hx of tonsillectomy H/O foot surgery Hx laparoscopic cholecystectomy Family History Mother COPD (chronic obstructive pulmonary disease) Diabetes Father CAD (coronary artery disease) Paternal Grandmother CAD (coronary artery disease) Social History Household Members: None Household Members Other:: lives alone [facility] Are you a primary primary care nurse to a significant other at home: No Do you presently have visiting nurse or other home services: No Alcohol intake: current Alcohol intake frequency: 0-2 drinks per day Alcohol type: wine Patient Tobacco Use Status: Former Tobacco user Tobacco use type: Cigarette Years Smoked: Quit 21 years ago e-Cigarette/Vaping Use: Former Use Second Hand Smoke Exposure: No Substance Use Type: Painkillers service: No Current occupational status: retired Current occupation: Former worker in [employer] in [employer] Physical Exam Vital Signs: BMI result Body Mass Index 25.6 Const Other: Well-nourished well-developed very friendly female awake alert and oriented x3 in no acute distress Extrem Other: Bilateral lower extremity examination shows good capillary refill, no skin lesions noted, normal sensation light touch Left hip examination shows that the surgical incision is well healed, no erythema, minimal discomfort with range of motion, mild tenderness over her bursa Results Reviewed Results Reviewed: X-rays of the patient's left hip taken today show a total hip arthroplasty in good position with no signs of loosening, no acute bony abnormalities Assessment & Plan Assessment & Plan (1) Left hip pain: Code(s): M25.552 - Pain in left hip Category: Medical Plan Ms. Yin continues to do well after undergoing left total hip replacement surgery on 05/11/2023 in spite of her recent fall. She does not appear to have caused any damage to her arthroplasty. She will continue with her home exercise program. She will follow up next month as scheduled for repeat clinical examination. Feel free to call me at any time should questions regarding her orthopedic management arise. I spent 19 minutes in reviewing the patient's records and imaging studies, seeing the patient and documenting in the medical record. Orders: Orders XR hip LT min 2V Today M25.552 - Pain in left hip Coding Level of Care Code Est Pt Level 2 (60964) Diagnoses Left hip pain M25.552
== END 2023-08-19 13:44 | disposition home or self-care (01) ==
PROVIDERS: PCP Internal Medicine; Visit Provider Orthopaedic Surgery
DX: M25.552 Pain in left hip (principal)
CPT/HCPCS: 99212

== ENCOUNTER 2023-09-23 09:19 | Outpatient (AMB) | payer OTHER, SELFPAY ==
[2023-09-23 09:24] VITALS: BMI 25.6
--- NOTE | 2023-09-23 09:24 | A.OFFVIS_ITS ---
Vital Signs 09/23/23 09:24 Height 5 ft Weight 131 lb BMI 25.6 Intake Visit Reasons: OV-LT AGUSTÍN 05/11/23 DR-follow up Intake Note: Belkis is a 63 year old female who presents with complaints of mild intermittent discomfort in her left hip after undergoing left total hip replacement surgery on 05/11/2023. The patient states that she did fall in her yd several weeks ago while pulling weeds. She states that her hip discomfort has gotten somewhat better since that time. She does not walk with an assistive device. She does not take any medicines for discomfort. Allergies No Known Allergies Allergy (Verified 09/23/23 09:28) Medication List - Last Reconciled 09/23/23 by Tramaine Parks MD acetaminophen 650 mg (2 x 325 mg) PO Q6H PRN 30 days amoxicillin 2,000 mg (4 x 500 mg) PO ONCE 1 day aspirin 325 mg PO Q12H 42 days atorvastatin 10 mg PO DAILY celecoxib 100 mg PO BID diltiazem HCl CD (Cardizem CD) 180 mg PO DAILY docusate sodium 100 mg PO BID 90 days ferrous sulfate 324 mg PO BIDWM gabapentin 100 mg PO BEDTIME 7 days metformin 1,000 mg PO BID methocarbamol 500 mg PO TID 7 days metoprolol succinate ER 50 mg PO DAILY ondansetron 4 mg PO Q8H 4 days ondansetron HCl 8 mg PO BID 5 days oxycodone 5 mg PO Q4H PRN 7 days polyethylene glycol 3350 17 grams PO DAILY potassium chloride ER 10 mEq PO DAILY scopolamine base 1 patch transdermal Q3D PRN trazodone 100 mg PO BEDTIME trazodone 150 mg PO BEDTIME venlafaxine 37.5 mg PO DAILY walker Folding front wheeled walker [facility] Medical History Osteoarthritis of left hip Back pain Arthritis Aortic stenosis Murmur IBS (irritable bowel syndrome) Rosacea Internal hemorrhoids Migraines Allergic rhinitis Insomnia Lipoma of colon Hypertension Diabetes Depression Biliary dyskinesia Diverticulitis Cataracts, bilateral Ocular hypertension Hypokalemia Dyslipidemia Surgical History History of hip surgery (~05/11/23) History of bunionectomy H/O colonoscopy Hx of tonsillectomy H/O foot surgery Hx laparoscopic cholecystectomy Family History Mother COPD (chronic obstructive pulmonary disease) Diabetes Father CAD (coronary artery disease) Paternal Grandmother CAD (coronary artery disease) Social History Household Members: None Household Members Other:: lives alone [facility] Are you a primary restorative care technician to a significant other at home: No Do you presently have visiting nurse or other home services: No Alcohol intake: current Alcohol intake frequency: 0-2 drinks per day Alcohol type: wine Patient Tobacco Use Status: Former Tobacco user Tobacco use type: Cigarette Years Smoked: Quit 21 years ago e-Cigarette/Vaping Use: Former Use Second Hand Smoke Exposure: No Substance Use Type: Painkillers service: No Current occupational status: retired Current occupation: Former worker in [employer] in [facility] Physical Exam Vital Signs: BMI result Body Mass Index 25.6 Const Other: Well-nourished well-developed very friendly female awake alert and oriented x3 in no acute distress Extrem Other: Bilateral lower extremity examination shows good capillary refill, no skin lesions noted, normal sensation light touch Left hip examination shows that the surgical incision is well healed, no erythema, minimal swelling, minimal discomfort with range of motion, mild tenderness over her greater trochanteric bursa Assessment & Plan Assessment & Plan (1) Greater trochanteric bursitis of left hip: Code(s): M70.62 - Trochanteric bursitis, left hip Category: Medical Plan Ms. Yin presents with left hip discomfort after undergoing left total hip replacement surgery on 05/11/2023 most likely due to greater trochanteric bursitis. I had a lengthy discussion with the patient regarding the treatment options. At this point the patient's symptoms are improving on their own. We will hold off on a cortisone injection. Activity modifications were discussed at length with the patient. She does know to take antibiotics before any dental work. She will contact me prior to her follow-up appointment in 3 months should any questions or concerns arise. Feel free to call me at any time should questions regarding her orthopedic management arise. I spent 20 minutes in reviewing the patient's records and imaging studies, seeing the patient and documenting in the medical record. Coding Level of Care Code Est Pt Level 2 (91992) Diagnoses Greater trochanteric bursitis of left hip M70.62
== END 2023-09-23 09:46 | disposition home or self-care (01) ==
PROVIDERS: PCP Internal Medicine; Visit Provider Orthopaedic Surgery
DX: M70.62 Trochanteric bursitis, left hip (principal)
CPT/HCPCS: 99213

== ENCOUNTER → 2023-09-23 09:19 | Outpatient (BNVA) | payer OTHER, SELFPAY | PROVIDERS: PCP Internal Medicine; Visit Provider Orthopaedic Surgery ==

== ENCOUNTER 2023-12-10 11:08 | Outpatient (AMB) | payer OTHER, SELFPAY ==
--- NOTE | 2023-12-10 11:35 | A.OFFVIS_ITS ---
Intake Visit Reasons: OV-LT AGUSTÍN 05/11/23 DR-follow up Intake Note: Belkis is a 63 year old female who presents to the office today for LT AGUSTÍN 05/11/23 DR-follow up. The patient reports mild intermittent discomfort along the lateral aspect of her left hip. She also reports intermittent weakness. She did not go to formal physical therapy. She is planning on joining a gym to ride the stationary bike. She denies any fevers or chills. She does not take any medicines for her discomfort. Allergies No Known Allergies Allergy (Verified 12/10/23 11:35) Medication List - Last Reconciled 12/10/23 by Tramaine Parks MD acetaminophen 650 mg (2 x 325 mg) PO Q6H PRN 30 days amoxicillin 2,000 mg (4 x 500 mg) PO ONCE 1 day aspirin 325 mg PO Q12H 42 days atorvastatin 10 mg PO DAILY celecoxib 100 mg PO BID diltiazem HCl CD (Cardizem CD) 180 mg PO DAILY docusate sodium 100 mg PO BID 90 days gabapentin 100 mg PO BEDTIME 7 days metformin 1,000 mg PO BID methylprednisolone (Medrol (Loi)) PO PER PKG DIR metoprolol succinate ER 50 mg PO DAILY polyethylene glycol 3350 17 grams PO DAILY potassium chloride ER 10 mEq PO DAILY scopolamine base 1 patch transdermal Q3D PRN trazodone 100 mg PO BEDTIME trazodone 150 mg PO BEDTIME venlafaxine 37.5 mg PO DAILY walker Folding front wheeled walker [facility] Medical History Osteoarthritis of left hip Back pain Arthritis Aortic stenosis Murmur IBS (irritable bowel syndrome) Rosacea Internal hemorrhoids Migraines Allergic rhinitis Insomnia Lipoma of colon Hypertension Diabetes Depression Biliary dyskinesia Diverticulitis Cataracts, bilateral Ocular hypertension Hypokalemia Dyslipidemia Surgical History History of hip surgery (~05/11/23) History of bunionectomy H/O colonoscopy Hx of tonsillectomy H/O foot surgery Hx laparoscopic cholecystectomy Family History Mother COPD (chronic obstructive pulmonary disease) Diabetes Father CAD (coronary artery disease) Paternal Grandmother CAD (coronary artery disease) Social History Household Members: None Household Members Other:: lives alone Housing: Condominium Are you a primary team primary care physician to a significant other at home: No Do you presently have visiting nurse or other home services: No Alcohol intake: current Alcohol intake frequency: 0-2 drinks per day Alcohol type: wine Patient Tobacco Use Status: Former Tobacco user Tobacco use type: Cigarette Years Smoked: Quit 21 years ago e-Cigarette/Vaping Use: Former Use Second Hand Smoke Exposure: No Substance Use Type: Painkillers service: No Current occupational status: retired 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 [facility] Physical Exam Const Other: Well-nourished well-developed very friendly female awake alert and oriented x3 in no acute distress Extrem Other: Bilateral lower extremity examination shows good capillary refill, no skin lesions noted, normal sensation light touch Left hip examination shows that the surgical incision is well healed, no erythema minimal discomfort with range of motion, mild tenderness over her bursa Results Reviewed Results Reviewed: X-rays of the patient's left hip taken today show a total hip arthroplasty in good position with no signs of loosening, no acute bony abnormalities Assessment & Plan Assessment & Plan (1) Left hip pain: Code(s): M25.552 - Pain in left hip Category: Medical Plan Ms. Yin continues to do fairly well after undergoing left total hip replace ment surgery on 05/11/2023. She does have discomfort likely due to greater trochanteric bursitis. She also has intermittent low back pain possibly due to degenerative disc disease. Thus, I did give the patient a prescription for a Medrol Dosepak to help with her symptoms. She does know to take antibiotics before any dental work. She will contact me prior to her follow-up appointment in 3 months should any questions or concerns arise. Feel free to call me at any time should questions regarding her orthopedic management arise. I spent 21 minutes in reviewing the patient's records and imaging studies, seeing the patient and documenting in the medical record. Orders: Orders XR hip LT min 2V Today M25.552 - Pain in left hip Medications: New methylprednisolone (Medrol (Loi)) PO PER PKG DIR 21 ea 0RF Coding Level of Care Code Est Pt Level 3 (70359) Diagnoses Left hip pain M25.552
== END 2023-12-10 12:27 | disposition home or self-care (01) ==
PROVIDERS: PCP Internal Medicine; Visit Provider Orthopaedic Surgery
DX: M25.552 Pain in left hip (principal); Z96.642 Presence of left artificial hip joint
CPT/HCPCS: 99213

== ENCOUNTER 2023-12-10 11:52 | Outpatient (REF) | payer OTHER, SELFPAY ==
--- NOTE | ~2023-12-10 | XR_ITS ---
EXAMINATION: XR HIP, LEFT CLINICAL INFORMATION: Left hip COMPARISON: 08/19/2023, 05/11/2023, 11/06/2022 TECHNIQUE: 2 AP views of the pelvis and frog-lateral view of the left hip. FINDINGS: Degenerative changes in the imaged lower spine. Diffuse demineralization. Degenerative changes in the bilateral sacroiliac joints, right greater than left. Mild degenerative changes right hip. Redemonstration of left total hip arthroplasty. Hardware appears intact. Alignment maintained. XR/XR hip LT min 2V IMPRESSION: Redemonstration of left total hip arthroplasty. Hardware appears intact. Alignment maintained. Electronically signed by: Joelle Cortes MD 01/06/2024 09:01 AM EDT
== END 2023-12-10 11:53 | disposition home or self-care (01) ==
LOC: HO.HOSX 11:52
PROVIDERS: Visit Provider Orthopaedic Surgery
DX: M25.552 Pain in left hip (principal); Z96.642 Presence of left artificial hip joint
CPT/HCPCS: 73502

== ENCOUNTER 2024-01-21 08:31 | Outpatient (AMB) | payer MEDICARE, OTHER, SELFPAY ==
--- NOTE | 2024-01-21 08:32 | A.OFFVIS_ITS ---
Vital Signs 01/21/24 08:34 Height 5 ft Weight 130 lb BMI 25.4 Intake Visit Reasons: OV-LT AGUSTÍN 05/11/23 DR-follow up Intake Note: Belkis is a 63 year old female who presents with complaints of mild discomfort along the lateral aspect of her left hip after undergoing left total hip replacement surgery on 05/11/2023. She does not take any medicines for discomfort. The patient states that several weeks ago she was in [place] on a [employer] campus tour with her granddaughter when she tripped and fell. She denies any increase in her discomfort following that fall. She has ordered a stationary bike which she is supposed to receive today. She also plans on joining a gym for exercise with her boyfriend. She does not wish to go back to formal physical therapy. Allergies No Known Allergies Allergy (Verified 01/21/24 08:34) Medication List - Last Reconciled 01/21/24 by Tramaine Parks MD acetaminophen 650 mg (2 x 325 mg) PO Q6H PRN 30 days amoxicillin 2,000 mg (4 x 500 mg) PO ONCE 1 day aspirin 325 mg PO Q12H 42 days atorvastatin 10 mg PO DAILY celecoxib 100 mg PO BID diltiazem HCl CD (Cardizem CD) 180 mg PO DAILY docusate sodium 100 mg PO BID 90 days gabapentin 100 mg PO BEDTIME 7 days metformin 1,000 mg PO BID methylprednisolone (Medrol (Loi)) PO PER PKG DIR metoprolol succinate ER 50 mg PO DAILY polyethylene glycol 3350 17 grams PO DAILY potassium chloride ER 10 mEq PO DAILY scopolamine base 1 patch transdermal Q3D PRN trazodone 100 mg PO BEDTIME trazodone 150 mg PO BEDTIME venlafaxine 37.5 mg PO DAILY walker Folding front wheeled walker [facility] Medical History Osteoarthritis of left hip Back pain Arthritis Aortic stenosis Murmur IBS (irritable bowel syndrome) Rosacea Internal hemorrhoids Migraines Allergic rhinitis Insomnia Lipoma of colon Hypertension Diabetes Depression Biliary dyskinesia Diverticulitis Cataracts, bilateral Ocular hypertension Hypokalemia Dyslipidemia Surgical History History of hip surgery (~05/11/23) History of bunionectomy H/O colonoscopy Hx of tonsillectomy H/O foot surgery Hx laparoscopic cholecystectomy Family History Mother COPD (chronic obstructive pulmonary disease) Diabetes Father CAD (coronary artery disease) Paternal Grandmother CAD (coronary artery disease) Social History Household Members: None Household Members Other:: lives alone Housing: Condominium Are you a primary career services coordinator to a significant other at home: No Do you presently have visiting nurse or other home services: No Alcohol intake: current Alcohol intake frequency: 0-2 drinks per day Alcohol type: wine Patient Tobacco Use Status: Former Tobacco user Tobacco use type: Cigarette Years Smoked: Quit 21 years ago e-Cigarette/Vaping Use: Former Use Second Hand Smoke Exposure: No Substance Use Type: Painkillers service: No Current occupational status: retired Current occupation: Former worker in [employer] in [employer] [facility] Physical Exam Vital Signs: BMI result Body Mass Index 25.4 Const Other: Well-nourished well-developed very friendly female awake alert and oriented x3 in no acute distress Extrem Other: Bilateral lower extremity examination shows good capillary refill, no skin lesions noted, normal sensation light touch Left hip examination shows that the surgical incision is well healed, no erythema, minimal discomfort with range of motion Assessment & Plan Assessment & Plan (1) Left hip pain: Code(s): M25.552 - Pain in left hip Category: Medical Plan Ms. Yin continues to do well after undergoing left total hip replacement surgery in spite of her recent fall. At this point the patient has minimal symptoms. She will continue with her exercise program. She does know to take antibiotics before any dental work. At this point she does not have any neck or back pain which could be related to her recurrent falls. I will see her back in 2-3 months' time for repeat clinical examination. Feel free to call me at any time should questions regarding her orthopedic management arise. I spent 22 minutes in reviewing the patient's records and imaging studies, seeing the patient and documenting in the medical record. Coding Level of Care Code Est Pt Level 3 (92599) Complex EM visit Add On G2211 Diagnoses Left hip pain M25.552
[2024-01-21 08:34] VITALS: BMI 25.4
== END 2024-01-21 09:01 | disposition home or self-care (01) ==
PROVIDERS: PCP Internal Medicine; Visit Provider Orthopaedic Surgery
DX: Z47.1 Aftercare following joint replacement surgery (principal); Z96.642 Presence of left artificial hip joint; M25.552 Pain in left hip
CPT/HCPCS: 99213

== ENCOUNTER → 2024-01-21 08:31 | Outpatient (BNVA) | payer OTHER, SELFPAY | PROVIDERS: PCP Internal Medicine; Visit Provider Orthopaedic Surgery ==

== ENCOUNTER 2024-04-21 08:39 | Outpatient (REF) | payer MEDICARE, OTHER, SELFPAY | END 2024-04-21 08:40 | disposition home or self-care (01) | LOC: HO.HOSX 08:39 | PROVIDERS: Visit Provider Orthopaedic Surgery | DX: Z47.1 Aftercare following joint replacement surgery (principal); M54.2 Cervicalgia; Z96.642 Presence of left artificial hip joint | CPT/HCPCS: 73502; 99212 ==

== ENCOUNTER 2024-04-21 09:19 | Outpatient (AMB) | payer MEDICARE, OTHER, SELFPAY ==
[2024-04-21 09:29] VITALS: BMI 25.0
--- NOTE | 2024-04-21 09:29 | A.OFFVIS_ITS ---
Vital Signs 04/21/24 09:29 Height 5 ft Weight 128 lb BMI 25.0 Intake Visit Reasons: OV-LT AGUSTÍN 05/11/23 DR-3 month F/U, Neck pain Intake Note: Belkis is a 64 year old female who presents for a follow up of her left hip after undergoing left total hip replacement surgery on 05/11/2023. The patient reports mild discomfort along the lateral aspect of her left hip. The patient states that over the last 6 months she has fallen on several occasions. She reports intermittent weakness in both of her legs, left greater than right. She also has progressively worsening neck pain. She has failed the last 6 weeks of conservative treatment which has consisted of physical therapy exercises, Tylenol and Celebrex. Allergies No Known Allergies Allergy (Verified 04/21/24 09:29) Medication List - Last Reconciled 04/21/24 by Tramaine Parks MD acetaminophen 650 mg (2 x 325 mg) PO Q6H PRN 30 days amoxicillin 2,000 mg (4 x 500 mg) PO ONCE 1 day aspirin 325 mg PO Q12H 42 days atorvastatin 10 mg PO DAILY celecoxib 100 mg PO BID diltiazem HCl CD (Cardizem CD) 180 mg PO DAILY docusate sodium 100 mg PO BID 90 days gabapentin 100 mg PO BEDTIME 7 days metformin 1,000 mg PO BID methylprednisolone (Medrol (Loi)) PO PER PKG DIR metoprolol succinate ER 50 mg PO DAILY polyethylene glycol 3350 17 grams PO DAILY potassium chloride ER 10 mEq PO DAILY scopolamine base 1 patch transdermal Q3D PRN trazodone 100 mg PO BEDTIME trazodone 150 mg PO BEDTIME venlafaxine 37.5 mg PO DAILY walker Folding front wheeled walker [facility] Medical History Osteoarthritis of left hip Back pain Arthritis Aortic stenosis Murmur IBS (irritable bowel syndrome) Rosacea Internal hemorrhoids Migraines Allergic rhinitis Insomnia Lipoma of colon Hypertension Diabetes Depression Biliary dyskinesia Diverticulitis Cataracts, bilateral Ocular hypertension Hypokalemia Dyslipidemia Surgical History History of hip surgery (~05/11/23) History of bunionectomy H/O colonoscopy Hx of tonsillectomy H/O foot surgery Hx laparoscopic cholecystectomy Family History Mother COPD (chronic obstructive pulmonary disease) Diabetes Father CAD (coronary artery disease) Paternal Grandmother CAD (coronary artery disease) Social History Household Members: None Household Members Other:: lives alone Housing: [facility] Are you a primary resident caregiver to a significant other at home: No Do you presently have visiting nurse or other home services: No Alcohol intake: current Alcohol intake frequency: 0-2 drinks per day Alcohol type: wine Patient Tobacco Use Status: Former Tobacco user Tobacco use type: Cigarette Years Smoked: Quit 21 years ago e-Cigarette/Vaping Use: Former Use Second Hand Smoke Exposure: No Substance Use Type: Painkillers service: No Current occupational status: retired Current occupation: Former worker in [employer] in [facility] Physical Exam Vital Signs: BMI result Body Mass Index 25.0 Const Other: Well-nourished well-developed very friendly female awake alert and oriented x3 in no acute distress Neck Other: Cervical spine examination shows left-sided paraspinal muscle tenderness, pain with range of motion, positive Spurling's test, 4/5 strength with testing of her left hip flexors and knee extensors when compared to 5/5 strength on her right side Extrem Other: Left hip examination shows that the surgical incision is well healed, no erythema, minimal discomfort with range of motion, minimal tenderness over her bursa Results Reviewed Results Reviewed: X-rays of the patient's left hip taken today show a total hip arthroplasty in good position with no signs of loosening, no acute bony abnormalities X-rays of the patient's cervical spine taken previously show moderate diffuse degenerative disc disease Assessment & Plan Assessment & Plan (1) Neck pain: Code(s): M54.2 - Cervicalgia Category: Medical Plan Ms. Yin continues to do fairly well after undergoing left total hip replacement surgery on 05/11/2023. She does have progressively worsening neck pain as well as associated bilateral lower extremity weakness, left greater than right, possibly due to a cervical disc herniation or cervical myelopathy. Thus, I will send the patient for an MRI of her cervical spine for further evaluation. I will contact her by phone once the MRI results are available. She will call me prior to that time should her symptoms worsen in any way. I spent 22 minutes in reviewing the patient's records and imaging studies, seeing the patient and documenting in the medical record. Orders: Orders XR hip LT min 2V Today M25.552 - Pain in left hip MR cervical spine wo con Today G89.29 - Other chronic pain, M54.2 - Cervicalgia Coding Level of Care Code Est Pt Level 3 (31503) Complex EM visit Add On G2211 Diagnoses Neck pain M54.2
== END 2024-04-21 09:49 | disposition home or self-care (01) ==
PROVIDERS: PCP Internal Medicine; Visit Provider Orthopaedic Surgery
DX: M54.2 Cervicalgia (principal)
CPT/HCPCS: 99213; G2211

== ENCOUNTER → 2024-04-29 07:46 | Outpatient (BNV) | payer MEDICARE, OTHER, SELFPAY | PROVIDERS: PCP Internal Medicine; Visit Provider Specialist | DX: G89.29 Other chronic pain (principal) | CPT/HCPCS: 72141 ==

== ENCOUNTER 2024-04-29 08:30 | Outpatient (REF) | payer MEDICARE, OTHER, SELFPAY ==
--- NOTE | ~2024-04-29 | MR_ITS ---
CLINICAL HISTORY: G89.29 - Other chronic pain MR cervical spine without gadolinium Comparison: None Normal vertebral body alignment. Multiple level broad-based degenerative disc bulge, degenerative facet and uncovertebral joint change. No acute fractures or pathologic bone lesions. No acute findings on limited view of the intracranial contents. No cervical fluid collections or masses. Cervical cord normal size and signal. IMPRESSION: No acute findings. This document has been electronically signed by: Ford Barber MD on 04/29/2024 17:54:15
== END 2024-04-29 08:31 | disposition home or self-care (01) ==
LOC: HO.MRI 08:30
PROVIDERS: PCP Internal Medicine; Visit Provider Orthopaedic Surgery
DX: M54.2 Cervicalgia (principal); G89.29 Other chronic pain
CPT/HCPCS: 72141

== ENCOUNTER → 2024-05-31 09:50 | Outpatient (BNV) | payer MEDICARE, OTHER, SELFPAY | PROVIDERS: PCP Internal Medicine; Visit Provider Radiology Diagnostic Radiology | DX: M47.896 Other spondylosis, lumbar region (principal); M51.26 Other intervertebral disc displacement, lumbar region | CPT/HCPCS: 72148 ==

== ENCOUNTER 2024-06-17 09:00 | Outpatient (REF) | payer MEDICARE, OTHER, SELFPAY ==
--- NOTE | ~2024-06-17 | XR_ITS ---
EXAMINATION: X-ray Lumbar spine 4 views. CLINICAL INFORMATION: Spinal stenosis. No neurogenic claudication. COMPARISON: Correlated to MRI dated May 31, 2024. TECHNIQUE: 4 views of the lumbar spine including flexion and extension position. FINDINGS: S-shaped curvature of the thoracolumbar spine with a dextroconvex rotoscoliosis apex at L3-4. Endplate sclerosis and decreased intervertebral disc height, L2-3. Marginal osteophyte formation at L2-3. No acute cortical disruption or gross malalignment. No gross malalignment during flexion or extension position. Vascular calcifications, aorta and iliac arteries. Vascular clips right upper quadrant abdomen. Metallic hardware partially seen on the lateral projection in one of the hips. XR/XR lumbar spine 4V min IMPRESSION: Scoliosis thoracolumbar spine. Spondylosis at L2-3. No gross instability. Atherosclerosis disease. Electronically signed by: Fredy Leahy MD 06/17/2024 01:[address] [facility]
== END 2024-06-17 09:01 | disposition home or self-care (01) ==
LOC: HO.HOSX 09:00
PROVIDERS: PCP Internal Medicine; Referring Provider Orthopaedic Surgery; Visit Provider Physician Assistant
DX: M48.061 Spinal stenosis, lumbar region without neurogenic claudication (principal)
CPT/HCPCS: 72110; 99202

== ENCOUNTER 2024-06-17 09:09 | Outpatient (AMB) | payer MEDICARE, OTHER, SELFPAY ==
[2024-06-17 09:08] VITALS: BMI 24.8
--- NOTE | 2024-06-17 09:08 | A.SPINEOV_ITS ---
Vital Signs 06/17/24 09:08 Height 5 ft Weight 127 lb BMI 24.8 Intake Visit Reasons: LBP Intake Note: Ms. Yin is here today c/o weak legs and low back pain. E M Assembler Required: No Allergies No Known Allergies Allergy (Verified 06/17/24 09:08) Physical Exam Vital Signs: BMI result Body Mass Index 24.8 Assessment & Plan Assessment & Plan (1) Lumbar canal stenosis: Code(s): M48.061 - Spinal stenosis, lumbar region without neurogenic claudication Category: Medical Plan Dear Dr Parks, Thank you for referring MRs Yin to our office today. She is a very nice 64-year-old female who has had chronic low back pain since she was a teenager. She had been considered possibly for surgery when she was a teenager but did not want to proceed with that. Since that time, she has been living with on and off back pain but as the years have gone by it has gotten steadily worse. It localizes itself well to the middle of the lumbar spine. She does not have any radiating pains down the legs. There is no tingling numbness etc.. No claudicating leg pains. She her legs will feel weak at times like they do not want to hold her up and she does fall about once a month. She has no warning but her legs would just go off from underneath her. No cauda equina symptoms. The patient has had no dedicated conservative treatment for back outside of some lead care manager that was done many years ago when she was a teenager. The pain does affect her quality of life in the sense that she is not able to do many of the things she finds meaningful in terms of recreational activities. Pain is there from the moment she gets up in the morning till she goes to bed. She does complain of some neck pain, but no tingling numbness or weakness of the upper extremities outside of some mild hand weakness when she is doing things like opening jars. No difficulty buttoning buttons or fine motor movements etc.. PMH: History of hypertension, history of diabetes her A1c generally runs in the low sevens, bunionectomy, cholecystectomy, hip replacement, tonsillectomy. No problems with the heart, lungs, liver, kidneys, bleeding disorders, blood clots or major abdominal surgery. Social hx: She has a glass of wine or 2 at night but does not smoke and does not use any recreational drugs Medications: Metformin, metoprolol, diltiazem, hydrochlorothiazide, atorvastatin, lisinopril potassium, venlafaxine, Celebrex Allergies: None Physical exam: Awake alert oriented no acute distress, she is able to stand up out of a chair and walk in the hallways with normal gait, she is slightly unsteady with tandem gait walking, motor examination reveals full strength of bilateral upper and lower extremities, 3+ reflexes, no clonus, no Chilel's sign. Negative Tinel's bilaterally. She does have tenderness over the mid lumbar region to palpation. Imaging review: There is cervical MRI and lumbar MRI to review here at [place]. The cervical MRI shows a slight spondylolisthesis at C4-5 with degenerative disc disease at C5-6 and C6-7. There is no central canal stenosis. Lumbar MRI shows a severely collapsed disc at L2-3. The rest of her disc quality in the other disc levels is normal. She has normal alignment. There are reactive changes at L2-3, type 3 Modic endplate changes. There is a small left L4-5 disc bulge causing narrowing of the lateral recess on the L5 nerve. Impression: 64-year-old female presents with chronic low back pain, with an MRI showing a severely collapsed disc at L2-3 with Modic endplate changes type 3. I suspect this is where her pain is coming from however I did explain to her after showing her her MRI that it is very difficult to know exactly where back pain comes from. We discussed the natural history of degenerative disc disease as well as treatment options. Obviously the 1st thing we would do is started with some basic conservative management including physical therapy, possible cortisone injections etc.. I gave her a referral to PT I would like to see her back in a few months. I will also get a standing flexion-extension x-ray. If it gets to the point of considering surgery, I would like to get a CT scan to rule out that the disc area has not auto fused already as there is signs of bony bridging. With regard to the balance issue in the falling once a month, I do not have an explanation based on this imaging and she has no signs of myelopathy so I am not sure if it could be something to do with her diabetes. She does complain of global weakness in her legs, so it is possible that it could be related to her statin. From my standpoint currently however though I do not see anything on the MRI that would explain it. Thank you for allowing us to care for your patient. The total time spent with this visit with this patient was 45 minutes reviewing history, physical exam, cervical and lumbar imaging review, and implementation of treatment plan or further diagnostic testing Josh Benson MD,PhD [facility] Orders: Orders XR lumbar spine 4V min Today M48.061 - Spinal stenosis, lumbar region without neurogenic claudication PT Evaluation and Treatment Today M48.061 - Spinal stenosis, lumbar region without neurogenic claudication Coding Level of Care Code New Pt Level 4 (49989) Diagnoses Lumbar canal stenosis M48.061
--- OUTSIDE RECORDS SUMMARY | 2024-06-17 09:28 | XMS_ITS | Clinical Summary ---
Author Organization [facility] Address [address] [place] [id number] Care Team Providers Care Clay Preparation Supervisor Name Role Phone Kee Barker MD Primary Care Provider [phone] Allergies No known active allergies Medications Medication Sig Dispensed Refills Start Date End Date Status atorvastatin (LIPITOR) tablet 10 mg Take 1 tablet by mouth daily. 0 11/01/2021 Active dilTIAZem (CARDIZEM CD) 180 MG 24 hr capsule 0 09/25/2021 Active lisinopril-hydroCHLOR Othiazide (PRINZIDE,ZESTORETIC) tablet 20-12.5 mg Take 1 tablet by mouth daily. 0 10/04/2021 Active metFORMIN (GLUCOPHAGE) tablet 500 mg Take 2 tabs a with breakfast and 1 tab with dinner 0 07/04/2021 Active metoprolol succinate (TOPROL-XL) 24 hr tablet 50 mg Take 1 tablet by mouth daily. 0 09/03/2021 Active Plecanatide (Trulance) 3 MG TABS Take 1 tablet by mouth 2 (two) times a day. 0 05/23/2021 Active potassium chloride (MICRO-K) 10 MEQ CR capsule Take 10 mEq by mouth. 0 08/14/2021 Active traZODone (DESYREL) 50 MG tablet 0 09/25/2021 Active venlafaxine (EFFEXOR-XR) 37.5 MG 24 hr capsule Take 1 capsule by mouth daily. 0 09/25/2021 Active Family History Medical History Relation Name Comments Hypertension Father Diabetes Mother Relation Name Status Comments Father Mother Social History Tobacco Use Types Packs/Day Years Used Date Smoking Tobacco: Never Assessed Sex and Gender Information Value Date Recorded Sex Assigned at Not on file Gender Identity Not on file Sexual Orientation Not on file Job Start Date Occupation Industry Not on file Not on file Not on file Last Filed Vital Signs Vital Sign Reading Time Taken Comments Blood Pressure - - Pulse - - Temperature - - Respiratory Rate - - Oxygen Saturation - - Inhaled Oxygen Concentration - - Weight 54.4 kg (120 lb) 12/11/2021 2:51 PM EDT Height 152.4 cm (5') 12/11/2021 2:51 PM EDT Body Mass Index 23.44 12/11/2021 2:51 PM EDT Plan of Treatment Health Maintenance Due Date Last Done Comments Hepatitis C Screening 1959 Depression Screening 1971 Preventative Health Evaluation 1977 Cervical Cancer Screening (Pap Smear) 01/22/1980 Colon Cancer Screening (Colonoscopy) 01/22/2004 Breast Cancer Screening (Mammogram) 2009 Shingrix-Zoster Vaccine (1 o f 2) 2009 COVID-19 Vaccine (4 - 2023-2 5 season) 2023 06/18/2021, 08/11/2020, 07/21/2020 Influenza Vaccine (#1) 2023 0, 03/02/2019 Fall Risk Assessment 01/22/2024 Osteoporosis Screening (DEXA Scan) 01/22/2024 Pneumococcal Vaccine (2 of 2 - PPSV23 or PCV20) 01/22/2024 06/19/2016 DTap / Tdap / Td (2 - Td or Tdap) 11/23/2029 11/24/2019 RSV Adult > 60+ Yrs or (1 - 1-dose 75+ series) 2034 Pneumococcal Vaccine Aged Out 06/19/2016 No long er eligible based on patient's age to complete this topic Hepatitis B Vaccines Aged Out No long er eligible based on patient's age to complete this topic RSV Ped < 20 months Aged Out No longe r eligible based on patient's age to complete this topic Care Teams Clay Preparation Supervisor Relationship Specialty Start Date End Date Kee Barker MD PCP - General Internal Medicine 11/21/21
--- OUTSIDE RECORDS SUMMARY | 2024-06-17 09:28 | XMS_ITS | Clinical Summary ---
Author Organization [facility] [address] [facility] Address [address] [facility] [place] [address] Phone Care Team Providers Care Bankruptcy Judge Name Role Phone Kee Barker MD Primary Care Provider [phone] Allergies No known active allergies Medications aspirin 81 mg EC tablet 1 tablet (81 mg total). 09/23/19 13 Active atorvastatin (LIPITOR) 10 mg tablet Take 1 tablet (10 mg total) by mouth at bedtime. 11/02/19 22 Active celecoxib (CeleBREX) 100 mg capsule Take 1 capsule (100 mg total) by mouth 2 (two) times a day. 10/01/19 24 Active metoprolol succinate (TOPROL-XL) 50 mg 24 hr tablet Take 1 tablet (50 mg total) by mouth 1 (one) time each day. 09/04/19 22 Active metFORMIN (GLUCOPHAGE) 500 mg tablet Take 2 tabs a with breakfast and 2 tab with dinner 07/05/19 22 Active traZODone (DESYREL) 150 mg tablet Take 1 tablet (150 mg total) by mouth at bedtime. 09/04/19 24 Active lisinopriL (PRINIVIL,ZEST RIL) 20 mg tablet Take 1 tablet (20 mg total) by mouth 1 (one) time each day. 90 tablet 2 03/10/20 24 Active blood-glucose meter,continuo us (Dexcom G7 Diesel Scoop Operator) miscIndication s:Type 2 diabetes mellitus with cataract (CMS/HCC) Use daily with dexcom g 7 sensors 1 each 05/10/19 25 Active potassium chloride (MICRO-K) 10 mEq CR capsule TAKE 1 CAPSULE DAILY 90 capsule 1 06/01/19 25 Active dilTIAZem CD (Cardizem CD) 180 mg 24 hr capsule Take 1 capsule (180 mg total) by mouth 1 (one) time each day. 90 capsule 2 06/01/19 25 Active blood-glucose sensor (Dexcom G7 Sensor) deviceIndicati ons:Type 2 diabetes mellitus with cataract (CMS/HCC) To use every 10 days with Dexcom reader 9 each 3 06/14/19 25 Active potassium chloride (MICRO-K) 10 mEq CR capsule Take 1 capsule (10 mEq total) by mouth 1 (one) time each day. 08/15/19 22 025 Discontinued dilTIAZem CD (Cardizem CD) 180 mg 24 hr capsule Take 1 capsule (180 mg total) by mouth 1 (one) time each day. 09/26/19 22 025 Discontinued(Re order) blood-glucose sensor (Dexcom G7 Sensor) deviceIndicati ons:Type 2 diabetes mellitus with cataract (CMS/HCC) To use every 10 days with Dexcom reader 9 each 3 05/10/19 25 025 Discontinued(Re order) Active Problems Problem Noted Date Diagnosed Date COVID-19 03/26/2022 Abnormal ECG 07/26/2021 Overview (01/28/2024): Last Assessment & Plan: Nonspecific T wave abnormalities noted at baseline. EKG today does not reveal any changes and has been stable. She denies symptoms of chest pain, pressure, shortness of breath or dyspnea on exertion. Dyslipidemia 07/01/2019 Overview (01/28/2024): Last Assessment & Plan: Her most recent fasting lipid profile was 1 month ago. This revealed a cholesterol 145, triglycerides 64, HDL of 103 and an LDL of 30. She will continue on her current dose of Lipitor 10 mg and will be mindful of her dietary fat intake. Hypokalemia 07/01/2019 Cataract, bilateral 03/23/2019 Ocular hypertension, bilateral 03/23/2019 Overview (01/28/2024): 07/2018 Eye exam Rosacea 03/23/2019 Diverticulitis of large intestine without bleedi ng 01/28/2018 Biliary dyskinesia 12/21/2017 Depression 10/30/2017 Diverticulosis 10/19/2017 Hypertension 10/19/2017 Overview (01/28/2024): Last Assessment & Plan: Her blood pressure is well-controlled during today's exam with a reading of 134/72. I have made no changes to her antihypertensive medication regime. She will continue on her current dose of lisinopril-hydrochlorothiazide, metoprolol and diltiazem. Educated on the importance of diet lifestyle modification to help assist in further lowering blood pressure. She was encouraged to follow a low-salt low-fat diet, maintain healthy weight, and engage in routine aerobic exercise 30 minutes a day 4-5 times a week as tolerated. Type 2 diabetes mellitus with cataract 8 Lipoma of colon 08/28/2017 Insomnia 06/19/2017 Allergic rhinitis 06/19/2016 Aortic stenosis 06/19/2016 Overview (01/28/2024): Last Assessment & Plan: Euvolemic upon exam today. She denies chest pain, pressure, peripheral edema or syncope. Most recent echocardiogram was 1 year ago as outlined above which did not reveal any significant valvular abnormalities. We will continue with surveillance echocardiograms to further evaluate progression of valvular abnormalities. Patient will call our office should she begin to experience symptoms listed above. Internal hemorrhoids 06/04/2009 Migraine headache 06/04/2009 Encounters Date Type Department Care Team Description 05/06/2024 Telephone Endocrinology [address] [phone] Tennille Handy PA orders from Last 3 Months Immunizations Name Administration Dates Next Due COVID-19 (Moderna/Spikevax) 12yo and older 02/16 Influenza Quadravalent, MDCK , 0.5ml, preservative free (Flucelvax) 6mo and older 01/26/2023,02/29/2020,03/02/2019 Influenza trivalent, 0.5mL ( Fluad) 65yo and older 02/16/2024 Influenza, Unspecified 01/26/2023 Pfizer SARS-CoV-2 COVID-19, mRNA, LNP-S, preservative free 06/18/2021,08/11/2020,07/21/2020 Pneumococcal conjugate 13 va lent (Prevnar 13, PCV13) 2mo and older 06/19/2016 Pneumococcal conjugate 20 va lent (Prevnar 20, PCV 20) 2mo and older 03/08/2024 RSV, bivalent, protein subun it RSVpreF, 0.5mL, Preservative Free (Arexvy) 60yo and older 02/16/2023 Tdap Tetanus diptheria acell ular pertussis (Boostrix; Adacel) 7yo and older 11/24/2019 Zoster recombinant (Shingrix ) 19yo and older 09/04/2023,03/30/2023,01/26/2023 Surgical History Surgery Date Site/Laterality Comments CHOLECYSTECTOMY PROCEDURE:CHOLECYSTECTOMY FOOT SURGERY PROCEDURE:FOOT SURGERY FOOT SURGERY PROCEDURE: HISTORICAL FOOT SURGERY; COMMENT: bunion correction w/phalanx osteotomy OTHER SURGICAL HISTORY 04/09/2018 PROCEDURE: LAPAROSCOPY, CHOLECYSTECTOMY; COMMENT: Dr. Blevins Medical History Medical History Date Comments Diabetes mellitus ([facility]) DX:D iabetes mellitus ([facility]) Hypertension DX:Hypertension Arthritis DX:Arthritis Allergic rhinitis 06/19/2016 DX:Allergic rh initis Aortic stenosis 06/19/2016 DX:Aortic stenos is Biliary dyskinesia 12/21/2017 DX:Biliary dy skinesia Depression 10/30/2017 DX:Depression Diverticulitis of large inte loan without bleeding 01/28/2018 DX:Diverticulitis of large intestine without bleeding Diverticulosis 10/19/2017 DX:Diverticulosi s Hypertension 10/19/2017 DX:Hypertension Insomnia 06/19/2017 DX:Insomnia Internal hemorrhoids 06/04/2009 DX:Internal hemorrhoids Lipoma of colon 08/28/2017 DX:Lipoma of col on Migraine headache 06/04/2009 DX:Migraine he adache Rosacea 03/23/2019 DX:Rosacea Ocular hypertension, bilateral 03/23/2019 D X:Ocular hypertension, bilateral; COMMENT: 07/2018 Eye exam Cataract, bilateral 03/23/2019 DX:Cataract, bilateral Type 2 diabetes mellitus wit h cataract (CMS/HCC) 10/19/2017 DX:Type 2 diabetes mellitus with cataract (HCC) Family History Medical History Relation Name Comments Coronary artery disease Father Hypertension Father COPD Mother Diabetes Mother Coronary artery disease Paternal Grandmother Relation Name Status Comments Father Mother Paternal Grandmother Social History Tobacco Use Types Packs/Day Years Used Date Smoking Tobacco: Former Cigarettes 1 21 0 04/27/1979 - 04/27/2000 Smokeless Tobacco: Never Tobacco Cessation:Counseling Given: Not Answered Alcohol Use Standard Drinks/Week Comments Yes 1 (1 standard drink = 0.6 oz pur e alcohol) Housing Instability Answer Date Recorde d Are you worried that in the next 2 months you may not have stable housing? No 03/07/2024 Food Access & Nutrition Answer Date Rec orded Do you have access to a vari ety of food including fruits and vegetables? Yes 03/07/2024 Access to Healthcare Answer Date Record ed Within the last 3 months, ho w many times did you visit the emergency department for your medical care? 0 03/07/2024 Health Literacy Answer Date Recorded How often do you need to hav e someone help you when you read instructions, pamphlets, or other written material from your doctor or pharmacy? Never 03/07/2024 Caregiver: How often do you need to have someone help you when you read instructions, pamphlets, or other written material from your doctor or pharmacy? Not on file 03/07/2024 Financial Risk Answer Date Recorded How hard is it for you to pa y for the very basics like food, housing, medical care, and air conditioning / heating? Not very hard 03/07/2024 Transportation Answer Date Recorded Has the lack of transportati on kept you from meetings, work, or from getting things needed for daily living? No Has the lack of transportati on kept you from medical appointments or from getting medications? No 03/07/2024 Social Isolation Answer Date Recorded How often do you feel lonely or isolated from th ose around you? Rarely 03/07/2024 Food Risk Answer Date Recorded Within the past 12 months we worried whether our food would run out before we got money to buy more. Never true 03/07/2024 Within the past 12 months th e food we bought just didn't last and we didn't have money to get more. Never true 03/07/2024 Dependent Care Answer Date Recorded Do you need help finding or paying for care for your loved ones. For example, child support case officer or elderly care for an older adult? No 03/07/2024 Education Answer Date Recorded Do you think completing more education or training, like finishing a GED, going to college, or learning a trade, would be helpful for you? No 03/07/2024 Employment and Income Answer Date Recor ded During the last four weeks, have you been actively looking for work? No 03/07/2024 Living Situation Answer Date Recorded What is your living situation? 1 05/07/2023 Comments Unknown Sex and Gender Information Value Date Recorded Sex Assigned at Not on file Legal Sex Female 3:59 PM EST Gender Identity Not on file Sexual Orientation Not on file Obstetrics History Last Filed Vital Signs Vital Sign Reading Time Taken Comments Blood Pressure 108/64 03/08/2024 10:12 AM EST Pulse 62 03/08/2024 10:12 AM EST Temperature 35.8 ??C (96.5 ??F) 03/08/2024 10:[address] Respiratory Rate - - Oxygen Saturation 95% 03/08/2024 10:12 AM EST Inhaled Oxygen Concentration - - Weight 59 kg (130 lb 1.6 oz) 03/08/2024 10:12 AM EST Height 152.4 cm (5') 03/08/2024 10:12 AM EST Body Mass Index 25.41 03/08/2024 10:12 AM EST Plan of Treatment Upcoming Encounters Date Type Department Care Team (Late st Contact Info) Description 07/28/2024 9:30 AM EDT [facility] [address] [place] [address] Tennille Handy PA [address] [place] [address] 08/01/2024 9:00 AM EDT Ancillary Procedure [facility] [address] [place] [phone] 09/26/2024 9:30 AM EDT [facility] Visit [facility] [place] [address] [place], [place] [phone] Kee Barker MD [address] [place] [address] 10/18/2024 1:10 PM EDT Office Visit [facility] [address] [place] [phone] Vickie Lay NP [address] [place] [address] Health Maintenance Due Date Last Done Comments Diabetes: Annual Retina Eye Exam 1970 Colorectal Cancer Screening: Colonoscopy 04/05/2022 Diabetes: Blood Sugar Control Test (HGBA1C) 07/19/2024 01/20/2024, 01/20/2024 Diabetes: Annual Urine Albumin-Creatinine Ratio (uACR) 07/28/2024 07/29/2023 Diabetes: Annual Foot Exam 07/28/2024 07/29/2023 Diabetes: Annual GFR (Glomerular Filtration Rate) 02/25/2025 02/26/2024, 02/02/2024, 01/27/2024, Additional history exists Hypertension/CHF/CAD Annual BMP Blood Test 02/25/2025 02/26/2024, 02/02/2024, 01/27/2024, Additional history exists Social Influencers of Health Screening 03/07/2025 03/07/2024 Depression Screening 03/08/2025 03/08/2024 Falls Risk Assessment 03/08/2025 03/08/2024 Medicare Annual Wellness Visit 03/08/2025 03/08/2024 Breast Cancer Screening 04/02/2025 04/02/2023 Cervical Cancer Screening: Pap Smear 03/31/2026 03/31/2023 Cholesterol Screening (Lipid Panel) 01/19/2029 01/20/2024, 01/20/2024 DTaP,Tdap,and Td Vaccines (2 - Td or Tdap) 11/23/2029 11/24/2019 Osteoporosis Screening (Bone Density Screening) 04/02/2033 04/02/2023 Hepatitis C Screening Completed 07/01/2020 RSV Immunization Patients 60+ Years Old Completed 02/16/2023 Zoster Vaccines Completed 09/04/2023, 12/0 07/2022, 01/26/2023 COVID-19 Vaccine Completed 02/16/2024, , 06/18/2021, Additional history exists Influenza Vaccine Completed 02/16/2024, , 01/26/2023, Additional history exists Pneumococcal Vaccine: 50+ Years Completed 03/08/2024, 06/19/2016 Pneumococcal Vaccine: Pediatrics (0 to 5 Years) and At-Risk Patients (6 to 64 Years) Completed 03/08/2024, 06/19/2016 HIB Vaccines Aged Out No longer eligi ble based on patient's age to complete this topic HPV Vaccines Aged Out No longer eligi ble based on patient's age to complete this topic Hepatitis A Vaccines Aged Out No long er eligible based on patient's age to complete this topic Hepatitis B Vaccines Aged Out No long er eligible based on patient's age to complete this topic IPV Vaccines Aged Out No longer eligi ble based on patient's age to complete this topic MMR Vaccines Aged Out No longer eligi ble based on patient's age to complete this topic Meningococcal ACWY Vaccine Aged Out N o longer eligible based on patient's age to complete this topic Meningococcal B Vacine Aged Out No lo nger eligible based on patient's age to complete this topic RSV Immunization Patients Under 20 months Aged Out No longer eligible based on patient's age to complete this topic Varicella Vaccines Aged Out No longer eligible based on patient's age to complete this topic Procedures Procedure Name Priority Date/Time Associated Diagnosis Comments EXTERNAL MRI REPORT 05/31/2024 ANNUAL BMP BLOOD TEST Routine 01/20/2024 HEMOGLOBIN A1C Routine 01/20/2024 LIPID PANEL Routine 01/20/2024 URINE ALBUMIN CREATININE RATIO Routine 07/29/2023 DIABETES FOOT EXAM Routine 07/29/2023 [facility] DEXA AXIAL SKELETON Routine 04/02/2023 12:22 PM EST Encounter for screening for osteoporosis [facility] SCREENING DIGITAL Routine 04/02/2023 10:34 AM EST Encounter for screening mammogram for malignant neoplasm of breast PAP SMEAR Routine 03/31/2023 HEPATITIS C SCREENING Routine 07/01/2020 from Last 3 Months or Most Recently Relevant to Health Maintenance Results * External MRI Report (05/31/2024) Anatomical Region Laterality Modality Magnetic Resonan ce Provider Onbase IMG MRI PROCEDURES Final Resu lt * Annual BMP Blood Test (01/20/2024) Pathologist [facility] Annual BMP Blood Test Abstracted Result [facility] Provider HEALTH MAINTENANCE Final Result * Hemoglobin A1c (01/20/2024) [facility] Hemoglobin A1C 6.1 <=6.5 % Blood Venous blood specimen / Unknown Result [facility] Provider LAB BLOOD ORDERABLES Yulissa l Result * Lipid panel (01/20/2024) [facility] LDL/HDL Ratio 1 0 - 4 Triglycerides 73 0 - 150 mg/dL Cholesterol 154 0 - 200 mg/dL HDL 112 >=40 mg/dL LDL Cholesterol 28 0 - 100 mg/dL Blood Venous blood specimen / Unknown Result [facility] Provider LAB BLOOD ORDERABLES Yulissa l Result * Urine Albumin Creatinine Ratio (07/29/2023) Pathologist [facility] Urine Albumin Creatinine Ratio Abstracted Result [facility] Provider HEALTH MAINTENANCE Final Result * Diabetes Foot Exam (07/29/2023) [facility] Diabetes: Annual Foot Exam Abstracted Result [facility] Provider HEALTH MAINTENANCE Final Result * [facility] DEXA AXIAL SKELETON (04/02/2023 12:22 PM EST) Anatomical Region Laterality Modality Mammography 04/02/2023 8:53 AM EST Narrative 04/02/2023 12:22 PM [facility] Diagnostic Imaging Department [address] [place] [id number] Patient: ??BELKIS YORK ?/Age/Sex: 1960 - Unit#: ??[id number] ? Location/Status: ??SPDIMAM/REG CLI ? Mnemonic/Ordering Site: ??MAMDEXAAX/SPMAM Ordering Physician: ??MIR BACA MD [facility] Dexa Axial Skeleton - 04/02/23932 Report Status:Signed History: Low estrogen state due to menopause. Tobacco user. Comparison: 12/06/13 Findings: Bone densitometry is performed utilizing dual energy x-ray absorptiometry (DXA) in the [facility] unit. The lumbar spine and proximal femora are evaluated in the AP projection. The FRAX questionaire was completed. The results indicate low bone mass (osteopenia), with a right femoral neck T- score of -1.6. The Z score is 0.0, indicating bone mineral density within the range of normal for age. There have been statistically significant decreases in bone mineral density in the spine and left total femur since the previous study. ??The detailed DEXA report will be mailed to the referring physician's office. DualFemur FRAX: 10-year Probability of Fracture: Major Osteoporotic 9.1 percent Hip 1.0 percent. IMPRESSION: Osteopenia. [id number] Dictating Physician: ??DARBY FLOWER MD Electronically Signed by: ??DARBY FLOWER MD Dic Date/Time: ??04/02/23 1221 Sign date/Time: ??04/02/23 1222 Procedure Note Darby Flower MD - 06/02/2023 [facility] Diagnostic Imaging Department [address] [place] [address] Patient: BELKIS YORK /Age/Sex: 1960 - 63 - F Unit#: [id number] [facility] Ordering Physician: MIR BACA MD [facility] Dexa Axial Skeleton - 04/02/23932 Report Status:Signed History: Low estrogen state due to menopause. Tobacco user. Comparison: 12/06/13 Findings: Bone densitometry is performed utilizing dual energy x-ray absorptiometry(DXA) in the [facility] unit. The lumbar spine and proximal femora areevaluated in the AP projection. The FRAX questionaire was completed. The results indicate low bone mass (osteopenia), with a right femoral neckT- score of -1.6. The Z score is 0.0, indicating bone mineral density withinthe range of normal for age. There have been statistically significant decreases in bone mineraldensity in the spine and left total femur since the previous study. The detailedDEXA report will be mailed to the referring physician's office. DualFemur FRAX: 10-year Probability of Fracture: Major Osteoporotic 9.1percent Hip 1.0 percent. IMPRESSION: Osteopenia. [id number] Dictating Physician: DARBY FLOWER MD Electronically Signed by: DARBY FLOWER MD Dic Date/Time: 04/02/23 1221 Sign date/Time: 04/02/23 1222 Mir Baca MD IMG BI PROCEDURES Final Result * [facility] SCREENING DIGITAL (04/02/2023 10:34 AM EST) Anatomical Region Laterality Modality Mammography 04/02/2023 8:50 AM EST Narrative 04/02/2023 10:34 AM EST [facility] Diagnostic Imaging Department [address] [place] [address] Patient: ??BELKIS YORK ?/Age/Sex: 1960 - 63 - F Unit#: ??[id number] ? Location/Status: ??SPDIMAM/REG CLI ? Mnemonic/Ordering Site: ??DIGSC/SPMAM Ordering Physician: ??MIR BACA MD [facility] Screening Digital - 04/02/23 - 904 Report Status:Signed EXAM: [facility] Screening Digital EXAM DATE AND TIME: 04/02/2023 9:05 AM HISTORY: ??Screening. COMPARISON: ??02/28/17, 11/21/13, 07/08/10 TECHNIQUE: Bilateral digital breast tomosynthesis was performed in the CC and MLO projections. Computer aided detection with [employer] 3D 3.1 was employed. TISSUE DENSITY: b. There are scattered areas of fibroglandular density. FINDINGS: No suspicious masses, grouped microcalcifications, or areas of architectural distortion are seen. Benign rim calcifications are noted. The skin and vascularity are unremarkable. IMPRESSION: No mammographic evidence of malignancy is seen. No significant change. A negative mammogram in the presence of a clinically suspicious palpable abnormality does not preclude the possibility of malignancy or alter the indications for biopsy. BI-RADS: ??Category 2: Benign RECOMMENDATION(S): 1: Routine screening mammogram BILATERAL in 1 year. Dictating Physician: ??DARBY FLOWER MD Electronically Signed by: ??DARBY FLOWER MD Dic Date/Time: ??04/02/23 1033 Sign date/Time: ??04/02/23 1034 Procedure Note Darby Flower MD - 06/02/2023 [facility] Diagnostic Imaging Department [address] [place] [address] Patient: BELKIS YORKO.B./Age/Sex: 1960 - 63 - F Unit#: [id number] Location/Status: [facility]/REG CLI Mnemonic/Ordering Site: [facility] Ordering Physician: MIR BACA MD [facility] Screening Digital - 04/02/23 - 0905 Report Status:Signed EXAM: [facility] Screening Digital EXAM DATE AND TIME: 04/02/2023 9:05 AM HISTORY: Screening. COMPARISON: 02/28/17, 11/21/13, 07/08/10 TECHNIQUE: Bilateral digital breast tomosynthesis was performed in the CCand MLO projections. Computer aided detection with [employer] 3D 3.1was employed. TISSUE DENSITY: b. There are scattered areas of fibroglandular density. FINDINGS: No suspicious masses, grouped microcalcifications, or areas ofarchitectural distortion are seen. Benign rim calcifications are noted. The skin and vascularity are unremarkable. IMPRESSION: No mammographic evidence of malignancy is seen. No significant change. A negative mammogram in the presence of a clinically suspicious palpable abnormality does not preclude the possibility of malignancy or alter the indications for biopsy. BI-RADS: Category 2: Benign RECOMMENDATION(S): 1: Routine screening mammogram BILATERAL in 1 year. Dictating Physician: DARBY FLOWER MD Electronically Signed by: DARBY FLOWER MD Dic Date/Time: 04/02/23 1033 Sign date/Time: 04/02/23 1034 Mir Baca MD IM BI PROCEDURES Final Result * Pap Smear (03/31/2023) Pap smear No Interpretation , Abstracted Yanna Millan MD HEALTH MAINTENANCE Final Result * Hepatitis C Screening (07/01/2020) Hepatitis C Screening Abstracted Historical [facility] HEALTH MAINTENANCE Final Result from Last 3 Months or Most Recently Relevant to Health Maintenance Insurance MEDICARE UNICARE Care Teams Bankruptcy Judge Relationship Specialty Start Date End Date Kee Barker MD [address] [place] [id number] PCP - General Internal Medicine 02/15/21
== END 2024-06-17 09:39 | disposition home or self-care (01) ==
PROVIDERS: PCP Internal Medicine; Referring Provider Orthopaedic Surgery; Visit Provider Physician Assistant
DX: M48.061 Spinal stenosis, lumbar region without neurogenic claudication (principal)
CPT/HCPCS: 99204

== ENCOUNTER → 2024-06-17 09:42 | Outpatient (BNV) | payer MEDICARE, OTHER, SELFPAY | PROVIDERS: PCP Internal Medicine; Referring Provider Orthopaedic Surgery; Visit Provider Radiology Diagnostic Radiology | DX: M48.061 Spinal stenosis, lumbar region without neurogenic claudication (principal); M41.35 Thoracogenic scoliosis, thoracolumbar region | CPT/HCPCS: 72110 ==

== ENCOUNTER 2024-07-04 09:00 | Outpatient (RCR) | payer MEDICARE, OTHER, SELFPAY ==
--- NOTE | 2024-06-23 11:43 | MHC.PT.EP ---
[facility] [place] Office [place] Office [place] Office [address] Foreign Lujan [address] [phone] F: [phone] F: [phone] F: [phone] F: [phone] Physical Therapy Plan of Care Date of Evaluation: 06/23/24 Date of Surgery: n/a Diagnosis: spinal stenosis, lumbar Assessment: Patient is a 64 year old female presenting to PT with complaints of pain in low back pain. Pt reports onset of pain began June 2023 due to falling. She presents today with impairments in pain, lumbar ROM, hip strength, core strength, sensitivity to palpation. 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 Clinical presentation today is most consistent with signs and sx associated with low back pain and pt will benefit from skilled PT 2 week x 4 weeks to address the following problems and impairments noted upon evaluation: pain, lumbar ROM, hip strength, core strength, sensitivity to palpation. These problems limit the patient with the following functional activities: ambulating, ADLs, household activities, bending, lifting. The prescribed treatment plan of care is medically necessary. Co-morbidities of heart murmur, DM, depression were identified and taken into considerations of plan of care. Pt was educated on HEP, role of PT, prognosis, POC. Frequency and Duration: The patient will be seen 2 x week x 4 weeks Short Term Goals: Pt will demonstrate ability to move through lumbar ROM with min to no pain in 2 weeks. Pt will demonstrate improved hip MMT strength by 1/3 grade in 2 weeks. Pt will demonstrate ability to perform PPT with good control in 2 weeks. Jeep Mechanic Goals: Pt will demonstrate improved Mee score by 10% in 4 weeks for improved functional mobility. Pt will demonstrate ability to complete ADLs with min to no pain in 4 weeks for return to PLOF. Pt will demonstrate ability to ambulate community distances with min to no pain in 4 weeks for improved access to the community. Treatment Plan: Modalities to reduce pain, spasms and effusion. Manual therapy to restore motion and function. Therapeutic exercise to improve strength and flexibility. Neuromuscular re-education for posture and balance. Therapeutic activities to return to functional activities of daily living. Electronically signed by: Hodan Ravi PT, DPT, ATC Please sign and return to therapist. Thank you for your referral.
--- NOTE | 2024-07-06 07:58 | MHC.PT.DC ---
[facility] [place] Office [place] Office [place] Office [address] Alicia Lujan [address] [phone] F: [phone] F: [phone] F: [phone] F: [phone] Physical Therapy Discharge Report Diagnosis: spinal stenosis, lumbar Date of Surgery: n/a Date of Evaluation: 06/23/24 Date of Discharge: 07/06/24 Treatments to Date: 4 Cancellations to Date: 0 No Shows to Date: 0 Discharge Status: Patient Elected to Stop Recommend MD Follow-up Discharge Summary: Pt called stating she would like to stop PT as it is not helping her. She would like to follow up with her doctor which I feel is reasonable. Pt to be d/c per her request. Electronically signed by: Hodan Ravi, PT, DPT, ATC Please sign and return to therapist. Thank you for your referral.
== END 2024-07-06 07:59 | disposition home or self-care (01) ==
LOC: HO.PTCHIC 09:00
PROVIDERS: PCP Internal Medicine; Visit Provider Physician Assistant
DX: M48.061 Spinal stenosis, lumbar region without neurogenic claudication (principal)
CPT/HCPCS: 97110; 97161

== ENCOUNTER 2024-07-25 13:10 | Outpatient (AMB) | payer MEDICARE, OTHER, SELFPAY ==
--- NOTE | 2024-07-25 13:12 | A.SPINEOV_ITS ---
Intake Visit Reasons: f/up after PT Intake Note: Ms. Yin is here today to F/i after PT. Video Production Assistant Required: No Allergies No Known Allergies Allergy (Verified 07/25/24 13:36) Assessment & Plan Assessment & Plan (1) Lumbar canal stenosis: Code(s): M48.061 - Spinal stenosis, lumbar region without neurogenic claudication Category: Medical Plan Mrs Yin came back after physical therapy with no success. This is not a surprise. Her MRI at [facility] shows the severely collapsed disc at L2-3 with Modic endplate changes type 3. The rest of the spine otherwise looks okay. We suspect is that this is where the pain is coming from. Her x-rays however show that she does not have optimal bone quality. I explained to her that fusion surgery is typically the operation of choice for back pain with degenerative discs, but for considering any operation that would need to get a noncontrast lumbar CT and review with Dr. Benson to see if he thinks this could be high risk. She is not necessarily ready to decide on surgery anyway. I told her to think about it and if she does want to consider moving ahead I could order the CT and review with Dr. Benson and see her back in the office once it is completed. Total amount of time spent in this visit was 20 minutes in discussion of symptoms, lumbar imaging results and subsequent plan of care Josh Benson MD,PhD [facility] Coding Level of Care Code Est Pt Level 3 (78322) Diagnoses Lumbar canal stenosis M48.061
--- OUTSIDE RECORDS SUMMARY | 2024-07-25 14:52 | XMS_ITS | Clinical Summary ---
Author Organization [facility] Address [address] [place] [address] Care Team Providers Care Analysis Consultant Name Role Phone Kee Barker MD Primary Care Provider [phone] Allergies No known active allergies Medications Medication [...] age to complete this topic Care Teams Analysis Consultant Relationship Specialty Start Date End Date Kee Barker MD PCP - General Internal Medicine 11/21/21
--- OUTSIDE RECORDS SUMMARY | 2024-07-25 14:52 | XMS_ITS ---
Author Name [facility] Organization Unknown Encounters Encounter Type Encounter Reason Primary Diagnosis Location Date Ambulatory [facility] [place] 10/20/2022 Ambulatory [facility] [place] 08/19/2022
--- OUTSIDE RECORDS SUMMARY | 2024-07-25 14:52 | XMS_ITS | Encounter Summary ---
Author Organization [facility] Address [address] [place] [address] Care Team Providers Care Pattern Maker Name Role Phone Kee Barker MD Primary Care Provider [phone] Reason for Visit * Reason Onset Date Comments Labs Only 07/14/2024 Encounter Details Date Type Department Care Team (Late st Contact Info) Description 07/14/2024 Telephone Endocrinology - [place] [address] [place] [address] Tennille Handy PA [address] [place] [address] Labs Only Social History Tobacco Use Types Packs/Day Years Used Date Smoking Tobacco: Former Cigarettes 1 21 0 04/27/1979 - 04/27/2000 Smokeless Tobacco: Never Alcohol Use Standard Drinks/Week Comments Yes 1 [...] care for your loved ones. For example, manager child or elderly care for an older adult? [...] on file Sexual Orientation Not on file documented as of this encounter Progress Notes * Irene Street RN - 07/19/2024 9:27 AM EDT Pt already had labs drawn yesterday * EMILEE Rodriguez - 07/18/2024 12:29 PM EDT ordered * Blanquita Henriquez - 07/14/2024 12:15 PM EDT Patient is looking for labs to be entered before her next appointment. Please call her once they have been entered at [phone] or [phone] documented in this encounter Plan of Treatment Upcoming Encounters Date Type Department Care Team (Late st Contact Info) Description 07/28/2024 9:30 AM EDT Office Visit [address] [phone] Tennille Handy PA [address] [place] [address] 08/01/2024 9:00 AM EDT Ancillary Procedure [facility] [address] [phone] 09/26/2024 9:30 AM EDT Office Visit Adult Medicine [address] [phone] Kee Barker MD [address] [place] [address] 10/18/2024 1:10 PM EDT Office Visit [facility] [address] [phone] Vickie Lay NP [address] [address] Scheduled Orders Name Type Priority Associated Diagnoses Orde r Schedule Basic metabolic panel Lab Routine Type 2 diabetes mellitus with cataract (CMS/HCC) 1 Occurrences starting 07/18/2024 until 07/18/2025 Hemoglobin A1c Lab Routine Type 2 diabetes mellitus with cataract (CMS/HCC) 1 Occurrences starting 07/18/2024 until 07/18/2025 Lipid panel with reflex to direct LDL Lab Routine Type 2 diabetes mellitus with cataract (CMS/HCC) 1 Occurrences starting 07/18/2024 until 07/18/2025 Microalbumin creatinine urine ratio Lab Routine Type 2 diabetes mellitus with cataract (CMS/HCC) 1 Occurrences starting 07/18/2024 until 07/18/2025 documented as of this encounter Visit Diagnoses Diagnosis Type 2 diabetes mellitus with cataract (CMS/HCC)- Primary documented in this encounter Additional Health Concerns Assessment Noted Time PHQ-9 Depression Total Score: 1 03/08/20 12:02 PM EST A fall risk assessment has been complete d for the patient 03/08/2024 10:15 AM EST documented as of this encounter Care Teams Pattern Maker Relationship Specialty Start Date End Date Kee Barker MD [address] [place] [address] PCP - General Internal Medicine 02/15/21 documented as of this encounter
--- OUTSIDE RECORDS SUMMARY | 2024-07-25 14:52 | XMS_ITS | Clinical Summary ---
Author Organization [facility] [address] [facility] Address [address] [place] [address] Phone Care Team Providers Care Coating Machine Feeder Name Role Phone Kee Barker MD Primary Care Provider [phone] Allergies No known active allergies Medications aspirin 81 mg EC tablet 1 tablet (81 mg total). 3 Active metoprolol succinate (TOPROL-XL) 50 mg 24 hr tablet Take 1 tablet (50 mg total) by mouth 1 (one) time each day. 2 Active metFORMIN (GLUCOPHAGE) 500 mg tablet Take 2 tabs a with breakfast and 2 tab with dinner 2 Active lisinopriL (PRINIVIL,ZESTR IL) 20 mg tablet Take 1 tablet (20 mg total) by mouth 1 (one) time each day. 90 tablet 2 4 Active blood-glucose meter,continuou s (Dexcom G7 Tag Machine Operator) miscIndications :Type 2 diabetes mellitus with cataract Use daily with dexcom g 7 sensors 1 each 5 Active potassium chloride (MICRO-K) 10 mEq CR capsule TAKE 1 CAPSULE DAILY 90 capsule 1 5 Active dilTIAZem CD (Cardizem CD) 180 mg 24 hr capsule Take 1 capsule (180 mg total) by mouth 1 (one) time each day. 90 capsule 2 5 Active blood-glucose sensor (Dexcom G7 Sensor) deviceIndicatio ns:Type 2 diabetes mellitus with cataract To use every 10 days with Dexcom reader 9 each 3 5 Active atorvastatin (LIPITOR) 10 mg tablet Take 1 tablet (10 mg total) by mouth at bedtime. 90 tablet 1 5 Active celecoxib (CeleBREX) 100 mg capsule Take 1 capsule (100 mg total) by mouth 2 (two) times a day. 180 capsule 1 5 Active traZODone (DESYREL) 150 mg tablet Take 1 tablet (150 mg total) by mouth at bedtime. 90 each 1 5 Active atorvastatin (LIPITOR) 10 mg tablet Take 1 tablet (10 mg total) by mouth at bedtime. 2 06/29/19 25 Discontinu ed(Reorder ) celecoxib (CeleBREX) 100 mg capsule Take 1 capsule (100 mg total) by mouth 2 (two) times a day. 4 06/29/19 25 Discontinu ed(Reorder ) traZODone (DESYREL) 150 mg tablet Take 1 tablet (150 mg total) by mouth at bedtime. 4 07/21/19 25 Discontinu ed(Reorder ) Active Problems Problem Noted Date Diagnosed Date [...] Encounters Date Type Department Care Team Description 07/14/2024 Telephone Endocrinology - [place] [address] [place] [phone] Tennille Handy PA Labs Only 05/06/2024 Telephone Endocrinology - [place] [address] [place] [phone] Tennille Handy PA orders from Last 3 [...] History Medical History Date Comments Diabetes mellitus ([facility]/HCC) DX:D iabetes mellitus (HCC) Hypertension DX:Hypertension Arthritis DX:Arthritis Allergic rhinitis 06/19/2016 [...] 03/23/2019 DX:Cataract, bilateral Type 2 diabetes mellitus with cataract 10/19/2017 DX:Type 2 diabetes mellitus with cataract [...] for your loved ones. For example, child care teacher or elderly care for an older adult? [...] Description 07/28/2024 9:30 AM EDT Office Visit Endocrinology [place] [phone] [place] [address] Tennille Handy PA [address] [place] [address] 08/01/2024 9:00 AM EDT Ancillary Procedure [facility] [address] [place] [address] [place] [address] 09/26/2024 9:30 AM EDT Office Visit Adult Medicine [facility] [address] [place] [address] Kee Barker MD [address] [place] [address] 10/18/2024 1:10 PM EDT Office Visit [facility] [address] [facility] [address] [place] [phone] Vickie Lay NP [address] [facility] [address] [place] [address] Health Maintenance Due Date Last Done Comments Diabetes: Annual Retina Eye Exam 1969 Colorectal Cancer Screening: Colonoscopy 04/05/2022 Diabetes: Annual Foot Exam 07/28/2024 07/29/2023 Diabetes: Blood Sugar Control Test (HGBA1C) 01/18/2025 07/18/2024, 01/20/2024, 01/20/2024 Social Influencers of Health Screening 03/07/2025 03/07/2024 Depression Screening 03/08/2025 03/08/2024 Falls Risk Assessment 03/08/2025 03/08/2024 Medicare Annual Wellness Visit 03/08/2025 03/08/2024 Breast Cancer Screening 04/02/2025 04/02/2023 Diabetes: Annual Urine Albumin-Creatinine Ratio (uACR) 07/18/2025 07/18/2024, 07/29/2023 Diabetes: Annual GFR (Glomerular Filtration Rate) 07/18/2025 07/18/2024, 02/26/2024, 02/02/2024, Additional history exists Hypertension/CHF/CAD Annual BMP Blood Test 07/18/2025 07/18/2024, 02/26/2024, 02/02/2024, Additional history exists Cervical Cancer Screening: Pap Smear 03/31/2026 03/31/2023 Cholesterol Screening (Lipid Panel) 07/18/2029 07/18/2024, 01/20/2024, 01/20/2024 DTaP,Tdap,and Td Vaccines (2 - Td or Tdap) 11/23/2029 11/24/2019 Osteoporosis Screening (Bone Density Screening) 04/02/2033 04/02/2023 Hepatitis C Screening Completed 07/01/2020 RSV Immunization Patients 60+ Years Old Completed 02/16/2023 Zoster Vaccines Completed 09/04/2023, 120 07/2022, 01/26/2023 COVID-19 Vaccine Completed 02/16/2024, , [...] Procedure Name Priority Date/Time Associated Diagnosis Comments BASIC METABOLIC PANEL Routine 07/18/2024 9:16 AM EDT Type 2 diabetes mellitus with cataract (CMS/HCC) HEMOGLOBIN A1C Routine 07/18/2024 9:16 AM EDT Type 2 diabetes mellitus with cataract (CMS/HCC) LIPID PANEL WITH REFLEX TO DIRECT LDL Routine 07/18/2024 9:16 AM EDT Type 2 diabetes mellitus with cataract (CMS/HCC) MICROALBUMIN CREATININE URINE RATIO Routine 07/18/2024 9:16 AM EDT Type 2 diabetes mellitus with cataract (CMS/HCC) EXTERNAL MRI REPORT 05/31/2024 DIABETES FOOT EXAM Routine 07/29/2023 [facility] DEXA AXIAL SKELETON Routine 04/02/2023 12:22 PM EST Encounter for screening for osteoporosis [facility] SCREENING DIGITAL Routine 04/02/2023 10:34 AM EST Encounter for screening mammogram for malignant neoplasm of breast PAP SMEAR Routine 03/31/2023 HEPATITIS C SCREENING Routine 07/01/2020 from Last 3 Months or Most Recently Relevant to Health Maintenance Results * Lipid panel with reflex to direct LDL (07/18/2024 9:16 AM EDT) Cholesterol 152 0 - 200 mg/dL LAB CHEMISTRY METHOD 07/18/2024 1:35 PM [facility] Triglycerides 57 0 - 150 mg/dL LAB CHEMISTRY METHOD 07/18/2024 1:35 PM [facility] HDL 102 >=40 mg/dL LAB CHEMISTRY METHOD 07/18/2024 1:35 PM [facility] LDL Calculated 39 0 - 100 mg/dL LAB CHEMISTRY METHOD 07/18/2024 1:35 PM [facility] VLDL Cholesterol Terry 11.4 mg/dL LAB CHEMISTRY METHOD 07/18/2024 1:35 PM [facility] Non HDL Chol. (LDL+VLDL) 50 <145 mg/dL LAB CHEMISTRY METHOD 07/18/2024 1:35 PM [facility] Chol/HDL Ratio 1.5 0.0 - 4.4 LAB CHEMISTRY METHOD 07/18/2024 1:35 PM [facility] Blood Venous blood specimen / Unknown Venipuncture / Unknown 07/18/2024 9:16 AM EDT 07/18/2024 9:16 AM EDT Tennille HEBERT LAB BLOOD ORDERABLES Final Result Performing Organization Address [facility]/ZIP Co de Phone Number [facility] [address] [place] [address], [place] [phone] * Microalbumin creatinine urine ratio (07/18/2024 9:16 AM EDT) Creatinine, Urine 135.0 mg/dL LAB CHEMISTRY METHOD 07/18/2024 11:21 AM EDT [facility] Microalb, Ur 17.3 0.0 - 29.0 mg/L LAB CHEMISTRY METHOD 07/18/2024 11:21 AM EDT [facility] Microalb/Creat Ratio 13 <30 mg/g creat LAB CHEMISTRY METHOD 07/18/2024 11:21 AM EDT [facility] Urine Urine specimen from urethra / Unknown Non-blood Collection / Unknown 07/18/2024 9:16 AM EDT 07/18/2024 9:16 AM EDT Tennille HEBERT LAB URINE ORDERABLES Final Result Performing Organization Address City/[facility]/ZIP Co de Phone Number [facility] [address] [place] [address], [place] [phone] * Hemoglobin A1c (07/18/2024 9:16 AM EDT) Hemoglobin A1C 6.3 <6.5 % LAB CHEMISTRY METHOD 07/18/2024 1:08 PM EDT [facility] Mean Bld Glu Estim. 134 mg/dL LAB CHEMISTRY METHOD 07/18/2024 1:08 PM EDT [facility] Blood Venous blood specimen / Unknown Venipuncture / Unknown 07/18/2024 9:16 AM EDT 07/18/2024 9:16 AM EDT Tennille HEBERT LAB BLOOD ORDERABLES Final Result [facility] [address] [place] [address], * (ABNORMAL) Basic metabolic panel (07/18/2024 9:16 AM EDT) Sodium 132(L) 133 - 145 mmol/L LAB CHEMISTRY METHOD 07/18/2024 1:31 [facility] Potassium 5.1 3.5 - 5.5 mmol/L LAB CHEMISTRY METHOD 07/18/2024 1:31 PM [facility] Chloride 100 96 - 110 mmol/L LAB CHEMISTRY METHOD 07/18/2024 1:31 PM [facility] CO2 28 21 - 32 mmol/L LAB CHEMISTRY METHOD 07/18/2024 1:31 PM [facility] Anion Gap 4 3 - 11 LAB CHEMISTRY METHOD 07/18/2024 1:31 PM [facility] Glucose 157(H) 70 - 100 mg/dL LAB CHEMISTRY METHOD 07/18/2024 1:31 PM [facility] BUN 22 5 - 25 mg/dL LAB CHEMISTRY METHOD 07/18/2024 1:31 PM [facility] Creatinine 0.88 0.50 - 1.10 mg/dL LAB CHEMISTRY METHOD 07/18/2024 1:31 PM [facility] eGFR 73 >=60 mL/min/1. 73m2 LAB CHEMISTRY METHOD 07/18/2024 1:31 PM [facility] Comment:Calculation based on the??Chronic Kidney Disease Epidemiology Collaboration (CKD-EPI) equation refit??without adjustment for race. BUN/Creatinine Ratio 25.0 LAB CHEMISTRY METHOD 07/18/2024 1:31 PM EDT [facility] Calcium 9.4 8.5 - 10.5 mg/dL LAB CHEMISTRY METHOD 07/18/2024 1:31 PM EDT [facility] Blood Venous blood specimen / Unknown Venipuncture / Unknown 07/18/2024 9:16 AM EDT 07/18/2024 9:16 AM EDT us Tennille HEBERT LAB BLOOD ORDERABLES Final Result [facility] [address] [place] [address], [place] [phone] * External MRI Report (05/31/2024) Anatomical Region Laterality Modality Magnetic Resonan ce us Provider Onbase IMG MRI PROCEDURES Final Resu lt * Diabetes Foot Exam (07/29/2023) Diabetes: Annual Foot Exam Abstracted us Historical Provider HEALTH MAINTENANCE Final Result * [facility] DEXA AXIAL SKELETON (04/02/2023 12:22 PM EST) Anatomical Region Laterality Modality Mammography 04/02/2023 8:53 AM EST Narrative 04/02/2023 12:[address] [facility] Diagnostic Imaging Department [address] [place] [address] Patient: ??BELKIS YORK ?/Age/Sex: 1960 - 63 - F Unit#: ??[id number] ? Location/Status: ??SPDIMAM/REG CLI ? Mnemonic/Ordering Site: ??MAMDEXAAX/SPMAM Ordering Physician: ??MIR BACA MD Giacomo Dexa Axial Skeleton - 04/02/23932 Report Status:Signed History: Low estrogen state due to menopause. Tobacco user. Comparison: 12/06/13 Findings: Bone densitometry is performed utilizing dual energy x-ray absorptiometry (DXA) in the [employer]ast[employer]Rhythm unit. The lumbar spine and proximal femora [...] 9.1 percent Hip 1.0 percent. IMPRESSION: Osteopenia. [id number] Dictating Physician: ??DARBY FLOWER MD Electronically Signed by: ??DARBY FLOWER MD Dic Date/Time: ??04/02/23 1221 Sign date/Time: ??04/02/23 1222 Procedure Note Darby Flower MD - 06/02/2023 [facility] Diagnostic Imaging Department [address] [place] [address] Patient: BELKIS YORK/Age/Sex: 1960 - 63 - F Unit#: [id number] Location/Status: SPDIMAM/REG CLI Mnemonic[facility] Ordering Physician: MIR BACA MD [facility] Dexa Axial Skeleton - 04/02/23932 Report Status:Signed History: Low estrogen state due to menopause. Tobacco user. Comparison: 12/06/13 Findings: Bone densitometry is performed utilizing dual energy x-ray absorptiometry(DXA) in the [employer] unit. The lumbar spine and proximal femora [...] Osteoporotic 9.1percent Hip 1.0 percent. IMPRESSION: Osteopenia. [id number] Dictating Physician: DARBY FLOWER MD Electronically Signed by: DARBY FLOWER MD Dic Date/Time: 04/02/23 1221 Sign date/Time: 04/02/23 1222 us Mir Baca MD IMG BI PROCEDURES Final Result * [facility] SCREENING DIGITAL (04/02/2023 10:34 AM EST) Anatomical Region Laterality Modality Mammography 04/02/2023 8:50 AM EST Narrative 04/02/2023 10:[address] [facility] Diagnostic Imaging Department [address] [place], [place] [id number] Patient: ??BELKIS YORK ?/Age/Sex: 1960 - 63 - F Unit#: ??[id number] ? Location/Status: ??SPDIMAM/REG CLI ? Mnemonic/Ordering Site: ??DIGSC/SPMAM Ordering Physician: ??MIR BACA MD [facility] Screening Digital - 04/02/23 - 904 Report Status:Signed EXAM: [facility] Screening Digital EXAM DATE AND TIME: 04/02/2023 9:05 AM HISTORY: ??Screening. COMPARISON: ??02/28/17, 11/21/13, 07/08/10 TECHNIQUE: Bilateral digital breast tomosynthesis was performed in the CC and MLO projections. Computer aided detection with [employer] 3D 3.1 was employed. TISSUE DENSITY: b. [...] Procedure Note Darby Flower MD - 06/02/2023 [facility] Diagnostic Imaging Department [address] [place] [address] Patient: CHELABELKIS.O.B./Age/Sex: 1960 - 63 - F Unit#: [id number] Location/Status: [facility] CLI Mnemonic/Ordering Site: [facility] Ordering Physician: MIR BACA MD [facility] Screening Digital - 04/02/23 - 904 Report Status:Signed EXAM: [facility] Screening Digital EXAM DATE AND TIME: 04/02/2023 9:05 AM HISTORY: Screening. COMPARISON: 02/28/17, 11/21/13, 07/08/10 TECHNIQUE: Bilateral digital breast tomosynthesis was performed in the CCand MLO projections. Computer aided detection with [employer] 3D 3.1was employed. TISSUE DENSITY: b. There [...] Sign date/Time: 04/02/23 1034 Mir Baca MD IMG BI PROCEDURES Final Result * Pap Smear (03/31/2023) Pap smear No Interpretation , Abstracted Historical Provider HEALTH MAINTENANCE Final Result * Hepatitis C Screening (07/01/2020) Hepatitis C Screening Abstracted Historical Provider HEALTH MAINTENANCE Final Result from Last 3 Months or Most Recently Relevant to [place] [id number] MEDICARE [facility] Care Teams Coating Machine Feeder Relationship Specialty Start Date End Date Kee Barker MD [address] [place] [address] MARIAN Mackenzie [id number] PCP - General Internal Medicine 02/15/21
== END 2024-07-25 14:02 | disposition home or self-care (01) ==
LOC: HO.HNS 13:11
PROVIDERS: PCP Internal Medicine; Visit Provider Physician Assistant
DX: M48.061 Spinal stenosis, lumbar region without neurogenic claudication (principal)
CPT/HCPCS: 99213

== ENCOUNTER → 2024-07-25 13:10 | Outpatient (BNVA) | payer MEDICARE, OTHER, SELFPAY | PROVIDERS: PCP Internal Medicine; Visit Provider Physician Assistant | DX: M48.061 Spinal stenosis, lumbar region without neurogenic claudication (principal) | CPT/HCPCS: 99212 ==